=== PATIENT | male | born 1960 | race Caucasian/White ===

== ENCOUNTER → 2017-11-26 14:13 | Outpatient (CLI) | payer OTHER, SELFPAY ==
[2017-11-26 15:08] LABS: International Normalized Ratio 1.6
== END ==
PROVIDERS: Family Provider Family Medicine; PCP Family Medicine; Visit Provider Family Medicine
DX: Z95.2 Presence of prosthetic heart valve (principal)
CPT/HCPCS: 36415; 85610

== ENCOUNTER 2017-12-11 10:31 | Outpatient (RCR) | payer OTHER, SELFPAY ==
[2017-12-11 11:44] LABS: International Normalized Ratio 2.2; Prothrombin Time (Protime)PT. 23.4 SECONDS (11.7-14.9)
== END 2017-12-11 15:00 | disposition home or self-care (01) ==
LOC: LAB 10:31
PROVIDERS: Family Provider Family Medicine; PCP Family Medicine; Visit Provider Family Medicine
DX: Z95.2 Presence of prosthetic heart valve (principal)
CPT/HCPCS: 36415; 85610

== ENCOUNTER 2017-12-25 10:00 | Outpatient (RCR) | payer OTHER, SELFPAY ==
--- NOTE | 2017-11-18 09:30 | HP.PTEVAL_ITS ---
Patient's Visit Information CARMEN KHOURY is a 57 year old M referred to Physical Therapy by En LE with a diagnosis of Multiple pelvic fractures. Date of Evaluation: 11/16/17 Physical Therapist: Solitario Raymundo - Visit Plan Frequency: 2x /Week Duration: 6 Weeks Plan: Start with BLE strengthening progressing to HEP. HS stretching. Gait progression to no AD if able. Progress to functional strengthening as tolerated. May use ice and IFC to managee pain. - Subjective Subjective: Pt. is here today for her initial evaluation s/p multiple pelvic fractures after falling off roof. He fell on 2016 while standing on a ladder on roof of his second story. He ulitmately had an ORIF at both anterior and posterior aspects of pelvis. He went to [facility] inpatient rehab for 1 week to work on [employer] as he was none wt. bearing bilaterally. He went home and was eventually seen by home health. He was given clearance for WBing as tolerated on 11/11/17. He reports trialing walking with cane, did not want to use walker. Pt. reports walking short distances in home, with increased pain, but mostly reports weakness. Pt. has been sleeping in reclining chair for comfort. He reports no pain curently, but will get L hip pain with walking and transfers. 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 He also reports some numbness and tingling in L leg at times, but not consistently. - Pain pelvis Pain Intensity (Out of 10): 0 Pain Intensity Range: 0, 4 L hip Pain Intensity (Out of 10): 0 Pain Intensity Range: 0, 4 - Objective POSTURE: Pt. has general flexed posture in sitting and standing. Pt. requires use of AD (cane) to stabilize in stance with increased R lateral lean. Pt. has normal pelvic positioning and equal iliac crest heights. PALPATION: Pt. has well healed incision at lower abdomen and lateral abdomen. No signs of infection, mild tenderness to palpation. NEUROLOGICAL: Pt. has normal sensation troughout bilateral LEs to light and sharp touch. Pt. has 2+ bilateral achilles and patellar DTR. Pt. is able to rise on heels and toes without LOB, but does require balance aid to stabilize. ROM: Pt. has full ankle knee ROM bilaterally. RLE- hip- flexion 110deg mild increase NW, abd 45deg , ext 10deg. LLE- hip- flexion 114deg, abd 47deg, ext 12deg. Pt. reports no pain, just stiffness with all ROM. Pt. is also tight in bilateral HS, (R- 68deg , L 71deg). MMT- RLE- ankle- 5/5 throughout; knee- ext 4+/5, flexion 4+/5; hip - flexion 4/5, abd 4/5, ext 4/5. LLE- ankle 5/5 throughout; knee- ext 4+/5, flexion 4/5; hip- flexion 4/5, abd 4/5, ext 4/5. Core strength- poor+. GAIT: Pt. ambulates with SPC in R hand, he heavily uses and step to pattern. Pt. was able to ambulate 105ft. without LOB, but reports mild increase in sore and fatigue. Pt. ambulates with FWW with improved step length and control, reduced pain for 289ft. STAIRS: Pt. is able to complete with step to pattern with loading RLE mostly, heavy use of HR, with mild increase NW symptoms. - Balance Scores Functional Gait Assessment Score: 10 % Disability: 66.6700 - Goals Goal 1:: Pt. to be I with HEP. Goal Time Frame: 4-6 Weeks Goal 2:: Pt. to have increased BLE strength by 1/2 grade throughout effected musculature allowing for increased stability with all functional mobility. Goal Time Frame: 4-6 Weeks Goal 3:: Pt. to ambulate with least restrictive device vs no AD unlimited distances without increase in symptoms. Goal Time Frame: 4-6 Weeks Goal 4:: Pt. to negotiate 1 flight of steps with 1 HR with reciprocal pattern without increase in symptoms. Goal Time Frame: 4-6 Weeks Goal 5:: Pt. to have improved FGA to 28/30 reduce risk for future falls. Goal Time Frame: 4-6 Weeks Goal 6:: Pt. to resume all work activities with 0-1/10 pain. - Rehabilitation Potential Physical Therapy Diagnosis: Pt. has signs and symptoms consistent with BLE weakness, difficulty with gait, reduced endurance, general deconditioning and increased pain S/P pelvic ORIF after fall. He would benefit from PT to increase BLE/core strength, increase stability with gait, improve balance, decrease pain and regain endurance allowing for safe return back to work and PLOF. Rehabilitation Potential: Excellent - Anticipated Interventions Patient/Client Instruction: Educate patient on: Condition, Plan of Care, Risk Factors, Benefits of Fitness Program For the Purpose of:: To reduce risk of recurrence, To improve safety, To improve health and function, To foster healthy habits, To improve decision making, To facilitate caregiver knowledge, To improve self management, To prevent re-injury, To improve ability to perform tasks related to life management, To improve tolerance to ADL's Therapeutic Exercise to Include: Strength training, Power training, Endurance training, Balance training, Coordination, Agility training, Postural training, Flexibilty training, Gait and locomotor training, Active ROM, Dynamic Lumbar Stabilization For the Purpose of:: To decrease pain, To increase ROM, To improve nutrient delivery to tissue, To increase oxygenation perfusion, To improve muscle performance and motor function, To improve ability to perform ADL's, To increase tolerance to activity/condition/position, To improve performance and independence with ADL's, To decrease level of supervision to perform tasks, To improve ability of physical actions for home/community/work/leisure, To improve gait and locomotor functions, To improve health of tissue, To decrease soft tissue restriction, To increase flexibility/ROM, To improve endurance, To improve balance IF ES: Yes Cryotherapy (ice pack, ice massage): Yes For the Purpose of:: To decrease pain, To increase ROM, To improve nutrient delivery to tissue, To increase oxygenation perfusion Thank you for the opportunity to evaluate your patient. For Medicare and Medicare HMO plans, please review the plan of care and approve it. It will need to be FAXED BACK to us at [phone] for Medicare purposes. Please let me know if there are questions or concerns regarding this plan of care. Physician Signature: Date:
--- NOTE | 2017-12-25 07:47 | PT ---
DR. Melquiades Marti MD, My name is Solitario Raymundo DPT. I am a physical therapist who has been working with Gabriel Donaldson DB: [id number]. He is doing very well with PT thus far. He is able to tolerate using the eliptical, leg pressing 115lbs, sled pushing/pulling upto 110lbs, and has improved his gait pattern. He reported having no pain at his last visit in both his lumbar spine and his pelvis/hips. He is negotiating steps without issues without use of HRs. He has seen a chiropractor for his back and lack of ankle DF strength which he reports has been improving. I do think at this point in time he would be able to tolerate most of his job related duties. My only consern would be if he has to carry heavier objects up/down ladders, mainly because he has not tried this at this point. Please let me know if you have any questions or concerns, my number is #[phone]. Fax number is #[phone]. Thank you, Solitario Raymundo DPT
--- NOTE | 2018-05-19 19:06 | HP.PT.NRP ---
HP - Discharge Summary (1) - Patient Information CARMEN KHOURY was seen in my office for initial evaluation on 11/16/17. The following Plan of Care was established for this patient: Initial Frequency: 2x /Week Initial Duration: 6 Weeks - Anticipated Interventions Patient/Client Instruction: Educate patient on: Condition, Plan of Care, Risk Factors, Benefits of Fitness Program For the Purpose of:: To reduce risk of recurrence, To improve safety, To improve health and function, To foster healthy habits, To improve decision making, To facilitate caregiver knowledge, To improve self management, To prevent re-injury, To improve ability to perform tasks related to life management, To improve tolerance to ADL's Therapeutic Exercise to Include: Strength training, Power training, Endurance training, Balance training, Coordination, Agility training, Postural training, Flexibilty training, Gait and locomotor training, Active ROM, Dynamic Lumbar Stabilization For the Purpose of:: To decrease pain, To increase ROM, To improve nutrient delivery to tissue, To increase oxygenation perfusion, To improve muscle performance and motor function, To improve ability to perform ADL's, To increase tolerance to activity/condition/position, To improve performance and independence with ADL's, To decrease level of supervision to perform tasks, To improve ability of physical actions for home/community/work/leisure, To improve gait and locomotor functions, To improve health of tissue, To decrease soft tissue restriction, To increase flexibility/ROM, To improve endurance, To improve balance IF ES: Yes Cryotherapy (ice pack, ice massage): Yes For the Purpose of:: To decrease pain, To increase ROM, To improve nutrient delivery to tissue, To increase oxygenation perfusion This patient was last seen in our office 12/25/17. Pertinent comments regarding their Physical therapy will appear below: Pt. was seen in PT for strengthening after sustaining multiple pelvic fractures after a mechanical fall. Pt. progressed very well and was able to progress to independent exercises. Pt. cancelled the rest of his PT as he reported he no longer needed it. Pt. pleased. Pt. has not been seen in ~5 months and will be DC from PT at this point in time. At this point I will be discontinuing this patient from physical therapy. I would be happy to see this patient again in the future if found appropriate by the physician. Thank you! Solitario Raymundo
== END 2017-12-25 19:00 | disposition home or self-care (01) ==
LOC: PT 10:00
PROVIDERS: Family Provider Family Medicine; PCP Family Medicine; Visit Provider Family Medicine
DX: S32.9XXD Fracture of unspecified parts of lumbosacral spine and pelvis, subsequent encounter for fracture with routine healing (principal); M25.552 Pain in left hip
CPT/HCPCS: 97110; 97162

== ENCOUNTER 2018-02-01 16:47 | Outpatient (RCR) | payer OTHER, SELFPAY ==
[2018-02-01 17:55] LABS: International Normalized Ratio 2.5; Prothrombin Time (Protime)PT. 26.9 SECONDS (11.7-14.9)
== END 2018-02-01 17:00 | disposition home or self-care (01) ==
LOC: LAB 16:47
PROVIDERS: Family Provider Family Medicine; PCP Family Medicine; Visit Provider Family Medicine
DX: Z95.2 Presence of prosthetic heart valve (principal)
CPT/HCPCS: 36415; 85610

== ENCOUNTER → 2018-03-03 08:04 | Outpatient (CLI) | payer OTHER, SELFPAY ==
--- NOTE | 2018-03-03 10:53 | NEURO_ITS ---
NCS and/or EMG Patient Report Ordering Doctor: En Bah DATE OF SERVICE: 03/03/18 This is a left lower extremity nerve conduction study and EMG performed on this 57-year-old male with a history of paresthesias in his left great toe which occurred after an injury in August 2017. He fell from a roof suffering a fractured pelvis as well as a lumbar fracture. He has well-controlled diabetes with a hemoglobin A1c of 6.7. Left lower extremity sensory and motor nerve conduction study was performed. The sural sensory responses are normal. The common peroneal motor amplitude is reduced with slowed conduction velocity and prolonged latency. The tibial motor distal latency is also prolonged with reduced conduction velocity. More proximally the common peroneal conduction velocity remains slow with reduced amplitude. Tibial and common peroneal F waves are prolonged. H reflexes are intact although asymmetric with reduced left tibial H reflex on the left. Left lower extremity needle electromyography is performed. Muscles evaluated included the extensor digitorum brevis, abductor hallucis, medial gastrocnemius , anterior tibialis, vastus medialis and vastus lateralis muscles. Insertional activity was normal however distal muscle did demonstrate increased amplitude. The anterior tibialis muscle also demonstrated 2+ fibrillation potentials. Impression this is an abnormal electrophysiologic study of left lower extremity consistent with likely length dependent chronic idiopathic peripheral neuropathy with there is superimposed mild L4 radiculopathy.
== END ==
PROVIDERS: Family Provider Family Medicine; PCP Family Medicine; Visit Provider Family Medicine
DX: M21.372 Foot drop, left foot (principal)
CPT/HCPCS: 95886; 95909

== ENCOUNTER 2018-04-17 11:54 | Outpatient (RCR) | payer OTHER, SELFPAY ==
[2018-04-17 12:25] LABS: International Normalized Ratio 1.7; Prothrombin Time (Protime)PT. 20.1 SECONDS (11.7-14.9)
== END 2018-04-17 12:30 | disposition home or self-care (01) ==
LOC: LAB 11:54
PROVIDERS: Family Provider Family Medicine; PCP Family Medicine; Visit Provider Family Medicine
DX: Z95.2 Presence of prosthetic heart valve (principal)
CPT/HCPCS: 36415; 85610

== ENCOUNTER 2018-05-31 16:15 | Outpatient (RCR) | payer OTHER, SELFPAY ==
[2018-05-31 17:41] LABS: International Normalized Ratio 2.5; Prothrombin Time (Protime)PT. 27.2 SECONDS (11.7-14.9)
== END 2018-05-31 18:00 | disposition home or self-care (01) ==
LOC: LAB 16:15
PROVIDERS: Family Provider Family Medicine; PCP Family Medicine; Visit Provider Family Medicine
DX: Z95.2 Presence of prosthetic heart valve (principal)
CPT/HCPCS: 36415; 85610

== ENCOUNTER 2018-07-07 15:07 | Outpatient (RCR) | payer OTHER, SELFPAY ==
[2018-07-07 17:16] LABS: International Normalized Ratio 1.7; Prothrombin Time (Protime)PT. 20.4 SECONDS (11.7-14.9)
[2018-07-07 17:42] LABS: AST(SGOT) 15 U/L (15-37); Alanine Aminotransfer ALT/SGPT 24 U/L (16-61); Albumin, Serum 3.7 g/dL (3.2-5.0); Alkaline Phosphatase 89 U/L (45-117); Anion Gap 12 (5-15); BUN 26 mg/dL (7-18); CRP 2.94 mg/L (0.0-3.0); Calcium,Total 8.5 mg/dL (8.5-10.1); Chloride 102 mmol/L (98-107); Creatinine, Serum 1.24 mg/dL (0.70-1.30); EST Glomerular Filtration Rate 63 mL/min (>60); Est Glom Filt Rate - Afr Amer 77 mL/min (>60); Globulin 3.6 g/dL (2.2-4.2); Glucose 159 mg/dL (74-106); Protein, Total 7.3 g/dL (6.4-8.2); Rheumatoid Factor < 10.0 IU/mL (<15); Sodium Level 137 mmol/L (136-145)
[2018-07-07 17:45] LABS: Erythrocyte Sedimentation Rate 13 mm/hr (0-20)
[2018-07-07 17:49] LABS: Vitamin B12 437 pg/mL (211-911)
[2018-07-09 16:09] LABS: PROEL- A/G Ratio 1.3 (0.7-1.7); PROEL- Alpha-1 Globulin 0.2 g/dL (0.0-0.4); PROEL- Alpha-2 Globulin 0.6 g/dL (0.4-1.0); PROEL- Beta Globulin 1.3 g/dL (0.7-1.3); PROEL- Gamma Globulin 1.1 g/dL (0.4-1.8); PROEL- Globulin, Total 3.2 g/dL (2.2-3.9); PROEL- TOTAL PROTEIN 7.2 g/dL (6.0-8.5)
[2018-07-12 11:11] LABS: ANTINUCLEAR ANTIBODIES DIRECT Negative (Negative)
[2018-07-12 18:43] LABS: PROELU- Albumin, Urine 56.6 % (.); PROELU- Alpha-1-Globulin,Ur 1.1 % (.); PROELU- Alpha-2-Globulin,Ur 8.1 % (.); PROELU- Beta Globulin, Ur 17.2 % (.); PROELU- Gamma Globulin, Ur 16.9 % (.)
== END 2018-07-07 16:00 | disposition home or self-care (01) ==
LOC: LAB 15:07
PROVIDERS: Family Provider Family Medicine; PCP Family Medicine; Visit Provider Family Medicine
DX: G62.9 Polyneuropathy, unspecified (principal); Z95.2 Presence of prosthetic heart valve
CPT/HCPCS: 36415; 80053; 82607; 84165; 84166; 85610; 85652; 86038; 86140; 86431

== ENCOUNTER 2018-09-06 16:56 | Outpatient (RCR) | payer OTHER, SELFPAY ==
[2018-09-06 17:54] LABS: International Normalized Ratio 1.9; Prothrombin Time (Protime)PT. 21.9 SECONDS (11.7-14.9)
== END 2018-09-17 12:25 | disposition home or self-care (01) ==
LOC: LAB 16:56
PROVIDERS: Family Provider Family Medicine; PCP Family Medicine; Referring Provider Family Medicine; Visit Provider Family Medicine
DX: Z95.2 Presence of prosthetic heart valve (principal)
CPT/HCPCS: 36415; 85610

== ENCOUNTER 2018-09-25 10:51 | Outpatient (RCR) | payer OTHER, SELFPAY ==
[2018-09-25 11:31] LABS: International Normalized Ratio 2.5; Prothrombin Time (Protime)PT. 26.8 SECONDS (11.7-14.9)
== END 2018-09-25 11:00 | disposition home or self-care (01) ==
LOC: LAB 10:51
PROVIDERS: Family Provider Family Medicine; PCP Family Medicine; Referring Provider Family Medicine; Visit Provider Family Medicine
DX: Z95.2 Presence of prosthetic heart valve (principal)
CPT/HCPCS: 36415; 85610

== ENCOUNTER → 2018-09-30 08:29 | Outpatient (CLI) | payer OTHER, SELFPAY ==
--- NOTE | 2018-09-30 08:31 | RAD_ITS ---
STUDY: X-RAY - RIGHT SHOULDER REASON FOR EXAM: Male, 58 years old. Pain of the right shoulder TECHNIQUE: 3 view(s) of the shoulder. COMPARISON: None. FINDINGS: There is mild degenerative arthrosis of the glenohumeral articulation. Normal acromioclavicular joint. Normal acromion. Normal humeral head and visualized proximal humerus. The soft tissue structures are unremarkable. There are old fractures of the right ribs. Normal visualized pulmonary apex. RAD/Shoulder min 2 Views IMPRESSION: Mild glenohumeral joint arthrosis. Old right rib fractures. Electronically Signed: Krish Ann MD at 7:56 EST , Service support ,
--- NOTE | 2018-09-30 08:31 | RAD_ITS ---
STUDY: X-RAY - LEFT SHOULDER REASON FOR EXAM: Male, 58 years old. Left shoulder pain TECHNIQUE: 3 view(s) of the shoulder. COMPARISON: 09/16/2012 FINDINGS: Normal glenohumeral articulation. Normal acromioclavicular joint. Normal acromion. Normal humeral head and visualized proximal humerus. The soft tissue structures are unremarkable. Left cardiac conduction device noted. Normal visualized pulmonary apex. RAD/Shoulder min 2 Views IMPRESSION: Normal x-ray examination of the shoulder. Electronically Signed: Krish Ann MD at 7:57 EST , Service support ,
--- OUTSIDE RECORDS SUMMARY | 2018-11-16 01:42 | XMS RPT_ITS ---
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 REGULARLY It is not important to spend hours in the gym, lifting weights and perspiring heavily. A total of 2-3 hours per week of aerobic (causing you to be moderately short of breath) exercise is sufficient to improve your health. Talk to us before you begin a new exercise program, if you have heart disease or experience shortness of breath or chest pain. REDUCE STRESS Chronic emotional and physical stress leads to disease. Ways of reducing stress include meditation, visualization, prayer, yoga and other forms of relaxation therapy. Consistency is the wiley. Find a technique that works for you and do it every day. CULTIVATE RELATIONSHIPS Loneliness and isolation have a major negative impact on health. Seek out others who can love, care for and nurture you. Avoid hurtful relationships. MAINTAIN IDEAL BODY WEIGHT The best way to do this is to do all the things above. Our bodies naturally find the right weight if we keep moving and feed ourselves the right food. If your BMI is greater than 25, we strongly recommend a referral to a weight management program. Please speak to us or your family physician about available programs. AVOID NICOTINE IN ALL FORMS This includes all tobacco products, whether chewed, smoked, vaped, or rubbed on the skin. Smoking cessation programs, which can make use of tobacco substitutes, medications to suppress cravings and behavior management, are available. Please contact your family physician about programs in your area. Referring Provider: GIOVANA SUERO [[id number]] Allergies As of Date: 10/22/2018 (No Known Allergies) Date Reviewed: 10/22/2018 Reviewed by: Arvind Padron MA - Fully Assessed Reason for Visit: Established Patient [175] Primary Visit Diagnosis:S/P AVR [Z95.2] Other Visit Diagnosis:Sick sinus syndrome (HCC) [I49.5] Order(s):ECG COMPLETE W INTERPRETATION [ECG01] Order #: [id number] FUTURE COMPLETE ECG [] Order #: [id number]. #:[id number]--[id number]: 1 Prescriptions as of 10/22/2018 Sig: LISINOPRIL 5 MG TABLET TAKE ONE TABLET BY MOUTH ONCE* PITAVASTATIN CALCIUM 2 MG TAB* Take 2 mg by mouth once daily. METFORMIN 500 MG TABLET Take 500 mg by mouth twice da* OMEGA-3 FATTY ACIDS-VITAMIN E* Take 2 capsules by mouth. ASPIRIN 81 MG TABLET,DELAYED * Take 81 mg by mouth once venkatesh* WARFARIN 10 MG TABLET Take 10 mg by mouth once venkatesh* MULTIVITAMIN TABLET Take 1 tablet by mouth once d* CITALOPRAM 40 MG TABLET Take 20 mg by mouth once venkatesh* METOPROLOL TARTRATE 25 MG TAB* Take 1 tablet by mouth twice * Patient not taking: Reported on 03/12/2018 PIOGLITAZONE 30 MG TABLET CHLORPHENIRAMINE 4 MG TABLET Take 4 mg by mouth every 6 ho* Problem List As Of Date 10/22/2018 Noted Resolved Complete heart block [I44.2] INVALID FOR* S/P AVR (aortic valve replacement) [Z95.2] INVALID FOR* Cardiac pacemaker in situ [Z95.0] INVALID FOR* Stented coronary artery [Z95.5] INVALID FOR* Other instructions from your clinician: LIFESTYLE CHANGE A healthy lifestyle is the most important component of your overall treatment plan. Please give serious thought to the following areas and commit to making mcfp changes. EAT A WHOLE FOOD, PLANT BASED DIET The nutrition your body gets is more important than the medicine you take. What matters most is the overall way you eat. We encourage you to minimize the use of animal products (which include dairy and all meats except fatty fish) and use whole, unprocessed plant foods to provide your protein, vitamins and other nutrients. We have a lot of information to share with you on this topic. This is not a diet. It is a way of life that you will keep with you. EXERCISE REGULARLY It is not important to spend hours in the gym, lifting weights and perspiring heavily. A total of 2-3 hours per week of aerobic (causing you to be moderately short of breath) exercise is sufficient to improve your health. Talk to us before you begin a new exercise program, if you have heart disease or experience shortness of breath or chest pain. REDUCE STRESS Chronic emotional and physical stress leads to disease. Ways of reducing stress include meditation, visualization, prayer, yoga and other forms of relaxation therapy. Consistency is the wiley. Find a technique that works for you and do it every day. CULTIVATE RELATIONSHIPS Loneliness and isolation have a major negative impact on health. Seek out others who can love, care for and nurture you. Avoid hurtful relationships. MAINTAIN IDEAL BODY WEIGHT The best way to do this is to do all the things above. Our bodies naturally find the right weight if we keep moving and feed ourselves the right food. If your BMI is greater than 25, we strongly recommend a referral to a weight management program. Please speak to us or your family physician about available programs. AVOID NICOTINE IN ALL FORMS This includes all tobacco products, whether chewed, smoked, vaped, or rubbed on the skin. Smoking cessation programs, which can make use of tobacco substitutes, medications to suppress cravings and behavior management, are available. Please contact your family physician about programs in your area. Follow-up and Disposition History Recorded Encounter Status:Closed by GIOVANA SUERO MD on 10/22/18 CHARLEEN Observed: 10/22/2018 Status: COMPLETED Source: [place] 1:30 PM [facility] REPOSITORY Office Visit (CARDWS) GABRIEL KHOURY ([id number]) 1960 M Date Time Provider Department 10/22/18 1:30 PM ECHOCARDIOGRAM [facility] CARDWS During your visit today, we recorded the following information about you: Coral Gallagher RN 10/22/2018 2:02 PM Signed #22g hep lock started rt ac x1 attempt, no redness swelling or bleeding noted at insertion site. Flushed with 5ml normal saline without difficulty. opsite dressing applied. Pt tolerated procedure without distress. Total of 7 ml definity given and flushed with 5 ml normal saline upon completion, lot # [id number]. Pt tolerated medication without distress. Hep lock removed, catheter intact, no redness, swelling or pain at site. 2x2 gauze dressing applied with paper tape. Pt tolerated procedure without distress. Coral Gallagher RN Referring Provider: GIOVANA SUERO [[id number]] Allergies As of Date: 10/22/2018 (No Known Allergies) Date Reviewed: 10/22/2018 Reviewed by: Arvind Padron MA - Fully Assessed Visit Diagnoses:S/P AVR [Z95.2] Essential hypertension [I10] Order(s):ECHO [677502] Order #: [id number]: 1 INSERT IV ([place]) [8501357] Order #: [id number]: 1 IV DISCONTINUE [5499772] Order #: [id number]: 1 perflutren lipid microspheres (DEFINITY) 1.1 mg/mL injection (to be provided with echo procedure)Inject 1.3 mL intravenously one time only for 1 dose.Disp: 1.3 mLRfl: 0 Prescriptions as of 10/22/2018 Sig: PERFLUTREN LIPID MICROSPHERES* Inject 1.3 mL intravenously o* LISINOPRIL 5 MG TABLET TAKE ONE TABLET BY MOUTH ONCE* PITAVASTATIN CALCIUM 2 MG TAB* Take 2 mg by mouth once daily. METOPROLOL TARTRATE 25 MG TAB* Take 1 tablet by mouth twice * Patient not taking: Reported on 03/12/2018 METFORMIN 500 MG TABLET Take 500 mg by mouth twice da* PIOGLITAZONE 30 MG TABLET CHLORPHENIRAMINE 4 MG TABLET Take 4 mg by mouth every 6 ho* OMEGA-3 FATTY ACIDS-VITAMIN E* Take 2 capsules by mouth. ASPIRIN 81 MG TABLET,DELAYED * Take 81 mg by mouth once venkatesh* WARFARIN 10 MG TABLET Take 10 mg by mouth once venkatesh* MULTIVITAMIN TABLET Take 1 tablet by mouth once d* CITALOPRAM 40 MG TABLET Take 20 mg by mouth once venkatesh* Problem List As Of Date 10/22/2018 Noted Resolved Complete heart block [I44.2] INVALID FOR* S/P AVR (aortic valve replacement) [Z95.2] INVALID FOR* Cardiac pacemaker in situ [Z95.0] INVALID FOR* Stented coronary artery [Z95.5] INVALID FOR* Visit Notes: >> Coral Gallagher RN ThuOct 22, 2018 2:02 PM Status: Signed #22g hep lock started rt ac x1 attempt, no redness swelling or bleeding noted at insertion site. Flushed with 5ml normal saline without difficulty. opsite dressing applied. Pt tolerated procedure without distress. Total of 7 ml definity given and flushed with 5 ml normal saline upon completion, lot # [id number]. Pt tolerated medication without distress. Hep lock removed, catheter intact, no redness, swelling or pain at site. 2x2 gauze dressing applied with paper tape. Pt tolerated procedure without distress. Coral Gallagher RN Prescriptions ordered this encounter Disp Refills Start End PERFLUTREN LIPID MICROSPHERES 1.1 MG* 1.3 * 0 10/22/2018 10/22/2018 Class: In Office Route: INTRAVENOUS Sig: Inject 1.3 mL intravenously one time only for 1 dose. Follow-up and Disposition History Recorded Encounter Status:Closed by CORAL GALLAGHER RN on 10/22/18 ORTHOPEDIC VISIT Observed: 10/04/2018 Status: F Source: [place] RE[place] 3:41 PM [facility] [place] [facility] [address] [place] [address] OFFICE VISIT Date of Service: 09/30/18 MR#: [id number] Acct: [id number] Name: GABRIEL KHOURY Rep #: [id number] : 1960 Provider: GREGORY De Leon Age/Sex: 58/M Location: [facility] [place].[facility] Status: Signed Intake Intake Visit Reasons: BILAT SHOULDERS Is patient in pain?: Yes Allergies No Known Allergies Allergy (Verified 09/30/18 08:25) Medications Aspirin [Aspirin, Baby] 81 mg PO DAILY@0800 07/20/14 [History Confirmed 07/20/14] Citalopram [Celexa] 40 mg PO DAILY 07/20/14 [History Confirmed 07/20/14] Lisinopril [Zestril] 5 mg PO DAILY 07/20/14 [History Confirmed 07/20/14] [place]-3S/Dha/Epa/Fish Oil [Fish Oil Dr 1,000 mg Softgel] 1.5 ea PO DAILY 07/20/14 [History Confirmed 07/20/14] Pravastatin [Pravachol] 80 mg PO DAILY 07/20/14 [History Confirmed 07/20/14] Warfarin Sodium [Coumadin] 10 mg PO DAILY 07/20/14 [History Confirmed 07/20/14] PFSH Social History Smoking Status: Never smoker HPI BILAT SHOULDERS: Details: GABRIEL KHOURY is a 58 year old M here today for bilateral shoulder pain. Patient notes that he has shoulder pain over his anterior shoulder. Patient notes that he has a known rotator cuff in his left shoulder. He states that he fell off a roof a year ago and injured his right shoulder. Patient has not had any evaluation on his shoulder since his fall. Patient states that he has limited range of motion of his left shoulder but has good range of motion on his right. He notes he did PT for his left shoulder. Patient notes that he had an US of his left shoulder. He denies any recent injections into his shoulder. ROS Const Reports system reviewed and no additional complaints, except as docu Eyes Reports system reviewed and no additional complaints, except as docu ENT Reports system reviewed and no additional complaints, except as docu Card Reports system reviewed and no additional complaints, except as docu Resp Reports system reviewed and no additional complaints, except as docu GI Reports system reviewed and no additional complaints, except as docu Reports system reviewed and no additional complaints, except as docu Musc Reports joint pain, Reports muscle weakness, Reports limited joint movement Skin/Breast Reports system reviewed and no additional complaints, except as docu Neuro Yes system reviewed and no additional complaints, except as docu Psych Reports system reviewed and no additional complaints, except as docu Endo Reports system reviewed and no additional complaints, except as docu Ortho Exam Right Shoulder Skin/Wound: No ecchymosis Testing: Positive Hawkin's, Neer's, AROM-Forward Elevation 0-180 and AROM-External Rotation at side 0-60; negative TTP Biceps, empty can or translation Internal Rotation: L1 Left Shoulder Skin/Wound: No ecchymosis Testing: No AROM-Forward Elevation 0-180 (170), Yes AROM-External Rotation at side 0-60, Yes PROM-Forward Elevation 0-180, No empty can Internal Rotation: Tip of Scapula SHOULDER: No evident abnormalities on inspection. No generalized or localized swelling. He does have some decreased active forward elevation as well as some decrease in abduction (abduction to about 80-90 degrees). Office Procedures Kenalog 40 mg/mL suspension for injection (triamcinolone acetonide) 80 mg Intra-Articular ONCE Injections Yes Subacromial Injection Right Office Meds Awa Performing Provider: GREGORY Haddad Administered by: GREGORY Haddad on 09/30/18 09:25 Dose Route Admin Location Lot Number Expiration DateND Attendant Sales 80 mg Intra-Articularright shoulder [id number] 09/18/19 3795-7365-60 [place] Assessment AND Plan Problems 1. Impingement syndrome of right shoulder M75.41 2. Tear of left rotator cuff, unspecified tear extent M75.102 Plan Obtained Xrays of patient's bilateral shoulders. Personally reviewed Xrays. There is no obvious fracture, dislocation, or lucency noted. See chart for further details. At this time patient has evidence of right shoulder impingement with possible tendinitis/bursitis. His range of motion and strength in the right side is very good at the same time does have some tenderness during these motions. His left shoulder has evident decreased range of motion which is very likely secondary to a rotator cuff tear which he states has been told he has had previously. At this time the right shoulder has become more painful and irritating than the left side. We discussed treatment options at this time which include doing nothing, continuing conservative home care with ice and anti-inflammatories, and injection, physical therapy and or further evaluation with more diagnostic imaging. Patient states that he has had relief from injection of the left shoulder and would like to proceed with an injection into the right shoulder. Patient is a diabetic and has some other health problems which we discussed. He states that his sugars did not really change much after his last injection into the left shoulder. This is something that he still needs to continue to monitor and watch. Also needs to notify of any symptoms such as shortness of breath chest pains pressures or any other symptoms. Risks and benefits of the injection were further discussed. All of patient's questions were answered and consent was signed. Injection was given under normal sterile fashion using a anterior approach into the subacromial space. Patient had no complications and tolerated procedure very well. Can you monitor for any redness, increased pain, inflammation, or other signs of infection. Notify the office of such symptoms. I would like patient to undergo some physical therapy or at least do some home exercise therapy which I did go ahead and give him a protocol for. Ice and anti-inflammatories as needed/allowed. Follow-up in 6-8 weeks Orders Orders: Medications Discontinued: Kenalog (triamcinolone acetonide) Disco80 mg (2 mL) Intra- Articular ONCE 2 mL 0RFM75.41 ntinued Reason: Office Medication has bee NS n Documented as given Plan Detail Follow Up 8 Weeks Coding Level of Care Code Off vis,est,level 3 Diagnoses Impingement syndrome of right shoulder M75.41 Tear of left rotator cuff, unspecified tear extent M75.102 Rotator cuff tear extent: unspecified tear extent Additional Codes stage set designer.sub ([id number]) 10/04/18 1541 <Electronically signed by Paul JENKINS> Date Paul JENKINS Cosigner Signature: Date (if applicable) CC: SHOULDER MIN 2 VIEWS Observed: 09/30/2018 Status: F Source: [place] 8:31 AM [facility] [place] [facility] Imaging Services [address] [place] [id number] Shoulder min 2 Views MR#: [id number] Acct: [id number] Name: GABRIEL KHORUY Rep #: [id number] : 1960 M 58 From: Krish Ann MD PCP: Cal Bah MD Status: REG CLI Study: Shoulder min 2 Views Date of Exam: 09/30/18 Exam# [id number] Ordering Dr: Paul De Leon STUDY: X-RAY - RIGHT SHOULDER REASON FOR EXAM: Male, 58 years old. Pain of the right shoulder TECHNIQUE: 3 view(s) of the shoulder. COMPARISON: None. FINDINGS: There is mild degenerative arthrosis of the glenohumeral articulation. Normal acromioclavicular joint. Normal acromion. Normal humeral head and visualized proximal humerus. The soft tissue structures are unremarkable. There are old fractures of the right ribs. Normal visualized pulmonary apex. RAD/Shoulder min 2 Views IMPRESSION: Mild glenohumeral joint arthrosis. Old right rib fractures. Electronically Signed: Krish Ann MD at 7:56 EST , Service support , CC: GREGORY De Leon; Cal Bah MD [place] Packer: Signed SHOULDER MIN 2 VIEWS Observed: 09/30/2018 Status: F Source: [place] 8:31 AM [facility] [place] [facility] Imaging Services [address] [place] [id number] Shoulder min 2 Views MR#: [id number] Acct: [id number] Name: GABRIEL KHOURY Rep #: [id number] : 1960 58 From: Krish Ann MD PCP: Cal Bah MD Status: REG CLI Study: Shoulder min 2 Views Date of Exam: 09/30/18 Exam# [id number] Ordering Dr: Paul De Leon STUDY: X-RAY - LEFT SHOULDER REASON FOR EXAM: Male, 58 years old. Left shoulder pain TECHNIQUE: 3 view(s) of the shoulder. COMPARISON: 09/16/2012 FINDINGS: Normal glenohumeral articulation. Normal acromioclavicular joint. Normal acromion. Normal humeral head and visualized proximal humerus. The soft tissue structures are unremarkable. Left cardiac conduction device noted. Normal visualized pulmonary apex. RAD/Shoulder min 2 Views IMPRESSION: Normal x-ray examination of the shoulder. Electronically Signed: Krish Ann MD at 7:57 EST , Service support , CC: GREGORY De Leon; Cal Bah MD [place] Packer: Signed PROTHROMBIN TIME W/INR Collected: 09/25/2018 Status: F Source: [place] 10:58 AM [facility] [place] TYPE CODE TESTS RESULT OUT OF RANGE REFERENCE UNITS LAB L300.4150 11.7-14.9 SECONDS High PROTIME 26.8 LAB L300.4200 Normal INR 2.5 Performed By: #### L300.3900 #### [facility] [address] [place], [place], [address] PROTHROMBIN TIME W/INR Collected: 09/06/2018 Status: F Source: [place] 5:00 PM [facility] [place] TYPE CODE TESTS RESULT OUT OF RANGE REFERENCE UNITS LAB L300.4150 11.7-14.9 SECONDS High PROTIME 21.9 LAB L300.4200 Normal INR 1.9 Performed By: #### L300.3900 #### [facility] [address] [place], [address] PACEMAKER CHECK Observed: 09/02/2018 Status: F Source: [place] 3:53 PM [facility] [place] [facility] [place] [address] Pacemaker Check Date of Service: 09/01/181730 MR#: [id number] Acct: [id number] Name: GABRIEL KHOURY Rep #: [id number] : 1960 From: Nola Lloyd Age/Sex: 58/M Location: [facility] [place] Status: Signed Billing Codes PM Device Codes: PM Dev Interrogate (Remot 09/01/181731 <Electronically signed by Nola Lloyd > Date Nola Lloyd 09/02/18 1553<Electronically signed by Carlos Pacheco MD> Ernie Signature: Date (if applicable) Carlos Pacheco MD CC: XR PELVIS 1 VIEW Observed: 08/18/2018 Status: F Source: [facility] ([facility] 8:29 AM [place] REPOSITORY Order Comment: Reason for exam?:f/u Injury/Trauma or Illness?:Injury/Trauma How long have you had these symptoms (acute/chronic)?:Chronic History of cancer?:unk Surgeries, chemotherapy, or radiation?:pelvis orif Type of Exam?:Subsequent/Follow-up Mechanism of injury?:accident I have personally reviewed an AP pelvis which was obtained at my request in the office today. This film demonstrates a remote pelvis ring injury. There are sacroiliac screws placed bilaterally and a symphyseal plate. The alignment of the pelvis is anatomic, the hardware is intact, and there is no change in the position of the hardware or the pelvis or time. Dictated by: CAROLA ROGERS on ThuAug 19, 2018 3:58:50 PM EDT Transcribed by: CAROLA ROGERS on ThuAug 19, 2018 3:58:50 PM EDT Finalized by: CAROLA ROGERS on ThuAug 19, 2018 3:58:50 PM EDT PROTEIN ELECTROPH, S Collected: 07/07/2018 Status: F Source: [place] 3:21 PM [facility] [place] TYPE CODE TESTS RESULT OUT OF RANGE REFERENCE UNITS LAB L3100.3500 6.0-8.5 g/dL Normal PROTEIN,TOTAL 7.2 LAB L3100.3600 2.9-4.4 g/dL Normal ALBUMIN 4.0 LAB L3100.3700 0.0-0.4 g/dL Normal ALPHA-1 GLOBUL 0.2 LAB L3100.3800 0.4-1.0 g/dL Normal ALPHA-2 GLOBUL 0.6 LAB L3100.3900 0.7-1.3 g/dL Normal BETA GLOBULIN 1.3 LAB L3100.4000 0.4-1.8 g/dL Normal GAMMA GLOBULIN 1.1 LAB L3100.4110 Normal M-SPIKE Result Comment: Not Observed LAB L3100.4200 2.2-3.9 g/dL GLOBULIN, TOTAL Normal 3.2 LAB L3100.4300 0.7-1.7 A/G RATIO Normal 1.3 LAB L3100.4320 . INTERPRETATION Normal Comment Result Comment: Protein electrophoresis scan will follow via computer, mail, or patient financial counselor delivery. LAB L3100.4340 . Normal NOTE: Comment Result Comment: The SPE pattern appears essentially unremarkable. Evidence of monoclonal protein is not apparent. Performed at: [facility] [address] [id number] Multimedia Project Manager: Ezra Urbina PhD, Phone: [phone] Performed By: #### L3100.3450 #### [facility] (refer to report for specific site) refer to report for address and phone number PROTEIN ELECTRO.UR-RANDOM Collected: Status: F Source: [place] 07/07/2018 3:21 PM [facility] [place] TYPE CODE TESTS RESULT OUT OF RANGE REFERENCE UNITS LAB L3600.4100 Not Estab. mg/dL Normal 8.0 PROTEIN,UR LAB L3600.4200 . % Normal 56.6 ALBUMIN,UR LAB L3600.4300 . % Normal 1.1 SYXLW-4-MYRS ,U LAB L3600.4400 . % Normal 8.1 WKWZO-5-BSXC ,U LAB L3600.4500 . % Normal BETA 17.2 GLOB,U LAB L3600.4600 . % Normal GAMMA 16.9 GLOB,U LAB L3600.4720 Normal M-SPIKE,U Result Comment: Not Observed LAB L3600.4800 . Normal NOTE Comment Result Comment: Protein electrophoresis scan will follow via computer, mail, or patient financial counselor delivery. Performed at: [facility] [address] [id number] Multimedia Project Manager: Ezra Urbina PhD, Phone: [phone] Performed By: #### L3600.4000 #### [facility] (refer to report for specific site) refer to report for address and phone number COMPREHENSIVE METABOLIC Collected: 07/07/2018 Status: F Source: [place] 3:11 PM [facility] [place] TYPE CODE TESTS RESULT OUT OF RANGE REFERENCE UNITS LAB L501.0100 74-106 mg/dL High GLU 159 Result Comment: Fasting Glucose result greater than or equal to 126 mg/dL suggests DIABETES MELLITUS per A.D.A. criteria. Please note revised GLUCOSE reference range effective 2017. LAB L501.1000 7-18 mg/dL High BUN 26 LAB L501.1100 0.70-1.30 mg/dL Normal CREAT,SERUM 1.24 Result Comment: The validity of the calculated GFR AND GFRAA in patients over 70 years has not been determined. Clinical correlation is essential. LAB L501.1110 >60 mL/min Normal EST GFR 63 Result Comment: Non- GFR Calc LAB L501.1115 >60 mL/min Normal EST GFR - AA 77 Result Comment: GFR Calc LAB L501.1300 10-20 RATIO High BUN/CRE 21.0 LAB L501.1500 6.4-8.2 g/dL T Normal PROT 7.3 LAB L501.1800 3.2-5.0 g/dL Normal ALB 3.7 LAB L501.1950 2.2-4.2 g/dL Normal GLOB 3.6 LAB L501.2000 0.9-2.4 RATIO Normal A/G 1.0 LAB L501.2200 8.5-10.1 mg/dL CA Normal 8.5 LAB L501.4100 15-37 U/L Normal AST 15 LAB L501.4305 45-117 U/L Normal ALK P 89 LAB L501.4405 16-61 U/L Normal ALT 24 LAB L501.4600 0.20-1.00 mg/dL T Normal BILI 0.50 LAB L501.5300 136-145 mmol/L NA Normal 137 LAB L501.5600 3.5-5.1 mmol/L K Normal 4.0 LAB L501.5900 98-107 mmol/L CL Normal 102 LAB L501.6100 21.0-32.0 mmol/L Normal CO2 23.0 LAB L501.6200 5-15 Normal GAP 12 Performed By: #### L500.4050, L501.6710, L505.7010 #### [facility] [address] [place], [place], [id number] CRP Collected: 07/07/2018 Status: F Source: [place] 3:11 PM [facility] [place] TYPE CODE TESTS RESULT OUT OF RANGE REFERENCE UNITS LAB L501.6710 0.0-3.0 mg/L Normal 2.94 C-REACTIVE PROT Result Comment: C-Reactive Protein (CRP) provides useful information for the diagnosis, therapy and monitoring of inflammatory processes and associated diseases. For the evaluation of Relative Risk for Cardiovascular Disease, a High Sensitivity CRP (HSCRP) should be ordered. Performed By: #### L500.4050, L501.6710, L505.7010 #### [facility] [address] [place], [place], [address] RHEUMATOID FACTOR Collected: 07/07/2018 Status: F Source: [place] 3:11 PM [facility] [place] TYPE CODE TESTS RESULT OUT OF RANGE REFERENCE UNITS LAB L505.7010 <15 IU/mL Normal RHEUMATOID FAC < 10.0 Performed By: #### L500.4050, L501.6710, L505.7010 #### [facility] [address] [place], [place], [address] PROTHROMBIN TIME W/INR Collected: 07/07/2018 Status: F Source: [place] 3:11 PM [facility] [place] TYPE CODE TESTS RESULT OUT OF RANGE REFERENCE UNITS LAB L300.4150 11.7-14.9 SECONDS High PROTIME 20.4 LAB L300.4200 Normal INR 1.7 Performed By: #### L300.3900 #### [facility] [address] [place], [address] ERYTHROCYTE SED RATE Collected: 07/07/2018 Status: F Source: [place] 3:11 PM [facility] [place] TYPE CODE TESTS RESULT OUT OF RANGE REFERENCE UNITS LAB L102.0000 0-20 mm/hr Normal SED RATE 13 Performed By: #### L101.9900 #### [facility] [address] [place], [place], [id number] VITAMIN B12 Collected: 07/07/2018 Status: F Source: [place] 3:11 PM [facility] [place] TYPE CODE TESTS RESULT OUT OF RANGE REFERENCE UNITS LAB L503.0105 211-911 pg/mL Normal Vitamin B12 437 Performed By: #### L503.0105 #### [facility] [address] [place], [address] ANTINUCLEAR ANTIBODIES Collected: 07/07/2018 Status: F Source: [place] 3:11 PM [facility] [place] TYPE CODE TESTS RESULT OUT OF RANGE REFERENCE UNITS LAB L3100.5475 Negative Normal Negative LANIE-DIRECT Result Comment: Performed at: - [facility] [id number] Multimedia Project Manager: Ezra Urbina PhD, Phone: [phone] Performed By: #### L3100.5475 #### [facility] (refer to report for specific site) refer to report for address and phone number PACEMAKER CHECK Observed: 06/02/2018 Status: F Source: [place] 11:51 AM [facility] [place] [facility] [place] [address] Pacemaker Check Date of Service: 05/31/181651 MR#: [id number] Acct: [id number] Name: GABRIEL KHOURY Rep #: [id number] : 1960 From: Nola Lloyd Age/Sex: 58/M Location: [facility] [place] Status: Signed Billing Codes PM Device Codes: PM Dev Prog Eval, Dual 05/31/18 1654 <Electronically signed by Nola Lloyd > Date Nola Lloyd 06/02/18 1151<Electronically signed by Carlos Pacheco MD> Ernie Signature: Date (if applicable) Carlos Pacheco MD CC: PROTHROMBIN TIME W/INR Collected: 05/31/2018 Status: F Source: [place] 4:19 PM [facility] [place] TYPE CODE TESTS RESULT OUT OF RANGE REFERENCE UNITS LAB L300.4150 11.7-14.9 SECONDS High PROTIME 27.2 LAB L300.4200 Normal INR 2.5 Performed By: #### L300.3900 #### [facility] [address] [place], [address] PROTHROMBIN TIME W/INR Collected: 04/17/2018 Status: F Source: [place] 11:56 AM [facility] [place] TYPE CODE TESTS RESULT OUT OF RANGE REFERENCE UNITS LAB L300.4150 11.7-14.9 SECONDS High PROTIME 20.1 LAB L300.4200 Normal INR 1.7 Performed By: #### L300.3900 #### [facility] [address] [place], [address] PROGRESS Observed: 03/12/2018 Status: COMPLETED Source: [place] 8:48 AM [facility] REPOSITORY HNO ID: [id number] Author: Giovana Suero Service: (none) Author Type: Physician Type: Progress Notes Filed: 03/12/2018 9:21 AM Note Text: PERTINENT CARDIAC HISTORY BAV - s/p mechanical AVR 2000 ASHD - PCI OM1 GRACIE 2014 Dilated aortic root - graft 2000, recurrent dilatation, 4.[address] HL - statin intolerant HTN SSS - s/p PPM Atrial fib DM ADHERENCE TO GUIDELINES TARUN-I or ARB for HF with prior LVEF<40 (NQF 0081) - met ASA or Plavix for ASHD (NQF 0067) - met Beta berta for ASHD with prior OK or prior LVEF<40 (NQF 0070) - N/A Beta berta for HF with prior LVEF<40 (NQF 0083) - met TARUN-I or ARB for ASHD with DM or prior LVEF<40 (NQF 0066) - met Statin therapy for ASHD or FHL or DM - met BMI documented and plan if >25 (NQF 0421) - lifestyle recommendation form Tobacco use screening and referral (NQF 0028) - lifestyle recommendation form Recommendation for whole food, plant based diet - lifestyle recommendation form CLINICAL IMPRESSION/PLAN: Gabriel Khoury has stable valvular heart disease. His valve has normal characteristics by exam. Echocardiogram will be done in 8 months for follow-up of valve gradients, LV function and aortic root size. He's been having some myalgias. He would like to go back to pravastatin. I have no objection. He will be coordinating this through Dr. Bah's office, where he has his labs drawn. I have confirmed that INRs are being followed by Dr. Bah. He will be referred to [facility] for clinic device check. I will see him in 8 months at which time he will have an echocardiogram. If there is increased chest pain or shortness of breath, he has been advised to contact me. He's been advised to begin checking blood pressures at home and contact me for possible medication adjustment. Written and verbal health teaching given to patient, patient verbalizes understanding and agrees with treatment plan. DIAGNOSIS FOR VISIT: AVR Hypertension HISTORY OF PRESENT ILLNESS Gabriel Khoury returns for follow-up of multiple cardiac issues, as noted above. He reports stable exercise tolerance. He fell off a roof over gi and fractured his pelvis. He is back to nearly full activity. He denies chest pain. He's had no orthopnea, edema, syncope, palpitations, TIAs, amaurosis and claudication. He has not been monitoring blood pressures at home ALLERGIES: ALLERGIES No Known Allergies CURRENT OUTPATIENT MEDICATIONS: lisinopril (ZESTRIL, PRINIVIL) 5 mg tablet TAKE ONE TABLET BY MOUTH ONCE DAILY Pitavastatin (LIVALO) 2 mg tab Take 2 mg by mouth once daily. metFORMIN (GLUCOPHAGE) 500 mg tablet Take 500 mg by mouth twice daily with meals. [place]-3 Fatty Acids-Vitamin E (FISH OIL) 1,000 mg cap Take 2 capsules by mouth. aspirin, enteric coated (ADULT LOW DOSE ASPIRIN) 81 mg EC tablet Take 81 mg by mouth once daily. warfarin 10 mg tablet Take 10 mg by mouth once daily. multivitamin tablet Take 1 tablet by mouth once daily. citalopram 40 mg tablet Take 20 mg by mouth once daily. metoprolol tartrate, short acting, (LOPRESSOR) 25 mg tablet Take 1 tablet by mouth twice daily. pioglitazone (ACTOS) 30 mg tablet chlorpheniramine (ALLER-CHLOR) 4 mg tablet Take 4 mg by mouth every 6 hours as needed. PHYSICAL EXAMINATION: VITAL SIGNS: BP 138/78 Pulse 73 Resp 18 Ht 5' 11 (1.80m) Wt 240 lb 11.2 oz (109.2kg) BMI 33.59 kg/(m2). Chest: Clear to percussion and auscultation. Trachea is midline. Air entry is equal. Cardiac: Regular rhythm. Mechanical valve sounds are normal. PMI is nondisplaced. There is a soft systolic ejection murmur. There is no aortic insufficiency murmur. Carotids are brisk without bruits. JVP is less than 10 cm. Abdomen: Soft and nontender. There are no pulsatile masses or bruits. No liver enlargement. Bowel sounds are active. Extremities: No edema. Pulses are intact and symmetrical. EKG shows AV pacing. There is no significant change. Recent remote pacemaker check showed episodes of atrial tachycardia lasting up to 3 hours. These have been asymptomatic. He is due a clinic check but has not been able to schedule this through [place]. Electronically Signed: Giovana Suero MD March 12, 2018 8:49 AM CC: Cal Bah MD CNOV Observed: 03/12/2018 Status: COMPLETED Source: [place] 8:30 AM [facility] REPOSITORY Office Visit (CAWSTR) GABRIEL KHOURY ([id number]) 1960 M Date Time Provider Department 03/12/18 8:30 AM GIOVANA SUEROWSTR During your visit today, we recorded the following information about you: Pulse Respiration Blood pressure Weight 73/minute 18/minute 138/78 109.2 kg Height 1.803 m Giovana Suero MD 03/12/2018 9:21 AM Signed PERTINENT CARDIAC HISTORY BAV - s/p mechanical AVR 2000 ASHD - PCI OM1 GRACIE 2014 Dilated aortic root - graft 2000, recurrent dilatation, 4.[address] HL - statin intolerant HTN SSS - s/p PPM Atrial fib DM ADHERENCE TO GUIDELINES TARUN-I or ARB for HF with prior LVEF<40 (NQF 0081) - met ASA or Plavix for ASHD (NQF 0067) - met Beta berta for ASHD with prior OK or prior LVEF<40 (NQF 0070) - N/A Beta berta for HF with prior LVEF<40 (NQF 0083) - met TARUN-I or ARB for ASHD with DM or prior LVEF<40 (NQF 0066) - met Statin therapy for ASHD or FHL or DM - met BMI documented and plan if >25 (NQ 0421) - lifestyle recommendation form Tobacco use screening and referral (NQ 0028) - lifestyle recommendation form Recommendation for whole food, plant based diet - lifestyle recommendation form CLINICAL IMPRESSION/PLAN: Gabriel Khoury has stable valvular heart disease. His valve has normal characteristics by exam. Echocardiogram will be done in 8 months for follow-up of valve gradients, LV function and aortic root size. He's been having some myalgias. He would like to go back to pravastatin. I have no objection. He will be coordinating this through Dr. Bah's office, where he has his labs drawn. I have confirmed that INRs are being followed by Dr. Bah. He will be referred to [facility] for clinic device check. I will see him in 8 months at which time he will have an echocardiogram. If there is increased chest pain or shortness of breath, he has been advised to contact me. He's been advised to begin checking blood pressures at home and contact me for possible medication adjustment. Written and verbal health teaching given to patient, patient verbalizes understanding and agrees with treatment plan. DIAGNOSIS FOR VISIT: AVR Hypertension HISTORY OF PRESENT ILLNESS Gabriel Khoury returns for follow-up of multiple cardiac issues, as noted above. He reports stable exercise tolerance. He fell off a roof over and fractured his pelvis. He is back to nearly full activity. He denies chest pain. He's had no orthopnea, edema, syncope, palpitations, TIAs, amaurosis and claudication. He has not been monitoring blood pressures at home ALLERGIES: ALLERGIES No Known Allergies CURRENT OUTPATIENT MEDICATIONS: lisinopril (ZESTRIL, PRINIVIL) 5 mg tablet TAKE ONE TABLET BY MOUTH ONCE DAILY Pitavastatin (LIVALO) 2 mg tab Take 2 mg by mouth once daily. metFORMIN (GLUCOPHAGE) 500 mg tablet Take 500 mg by mouth twice daily with meals. [place]-3 Fatty Acids-Vitamin E (FISH OIL) 1,000 mg cap Take 2 capsules by mouth. aspirin, enteric coated (ADULT LOW DOSE ASPIRIN) 81 mg EC tablet Take 81 mg by mouth once daily. warfarin 10 mg tablet Take 10 mg by mouth once daily. multivitamin tablet Take 1 tablet by mouth once daily. citalopram 40 mg tablet Take 20 mg by mouth once daily. metoprolol tartrate, short acting, (LOPRESSOR) 25 mg tablet Take 1 tablet by mouth twice daily. pioglitazone (ACTOS) 30 mg tablet chlorpheniramine (ALLER-CHLOR) 4 mg tablet Take 4 mg by mouth every 6 hours as needed. PHYSICAL EXAMINATION: VITAL SIGNS: BP 138/78 Pulse 73 Resp 18 Ht 5' 11 (1.80m) Wt 240 lb 11.2 oz (109.2kg) BMI 33.59 kg/(m2). Chest: Clear to percussion and auscultation. Trachea is midline. Air entry is equal. Cardiac: Regular rhythm. Mechanical valve sounds are normal. PMI is nondisplaced. There is a soft systolic ejection murmur. There is no aortic insufficiency murmur. Carotids are brisk without bruits. JVP is less than 10 cm. Abdomen: Soft and nontender. There are no pulsatile masses or bruits. No liver enlargement. Bowel sounds are active. Extremities: No edema. Pulses are intact and symmetrical. EKG shows AV pacing. There is no significant change. Recent remote pacemaker check showed episodes of atrial tachycardia lasting up to 3 hours. These have been asymptomatic. He is due a clinic check but has not been able to schedule this through [place]. Electronically Signed: Giovana Suero MD March 12, 2018 8:49 AM CC: MD Giovana Mooney MD 03/12/2018 8:49 AM Signed LIFESTYLE CHANGE A healthy lifestyle is the most important component of your overall treatment plan. Please give serious thought to the following areas and commit to making extermination inspector changes. EAT A WHOLE FOOD, PLANT BASED DIET The nutrition your body gets is more important than the medicine you take. What matters most is the overall way you eat. We encourage you to minimize the use of animal products (which include dairy and all meats except fatty fish) and use whole, unprocessed plant foods to provide your protein, vitamins and other nutrients. We have a lot of information to share with you on this topic. This is not a diet. It is a way of life that you will keep with you. EXERCISE REGULARLY It is not important to spend hours in the gym, lifting weights and perspiring heavily. A total of 2-3 hours per week of aerobic (causing you to be moderately short of breath) exercise is sufficient to improve your health. Talk to us before you begin a new exercise program, if you have heart disease or experience shortness of breath or chest pain. REDUCE STRESS Chronic emotional and physical stress leads to disease. Ways of reducing stress include meditation, visualization, prayer, yoga and other forms of relaxation therapy. Consistency is the wiley. Find a technique that works for you and do it every day. CULTIVATE RELATIONSHIPS Loneliness and isolation have a major negative impact on health. Seek out others who can love, care for and nurture you. Avoid hurtful relationships. MAINTAIN IDEAL BODY WEIGHT The best way to do this is to do all the things above. Our bodies naturally find the right weight if we keep moving and feed ourselves the right food. If your BMI is greater than 25, we strongly recommend a referral to a weight management program. Please speak to us or your family physician about available programs. AVOID NICOTINE IN ALL FORMS This includes all tobacco products, whether chewed, smoked, vaped, or rubbed on the skin. Smoking cessation programs, which can make use of tobacco substitutes, medications to suppress cravings and behavior management, are available. Please contact your family physician about programs in your area. Referring Provider: GIOVANA SUERO [[id number]] Allergies As of Date: 03/12/2018 (No Known Allergies) Date Reviewed: 03/12/2018 Reviewed by: Coral Gallagher RN - Fully Assessed Reason for Visit: Recheck [92] Primary Visit Diagnosis:S/P AVR [Z95.2] Other Visit Diagnosis:Essential hypertension [I10] Order(s):ECHO [173136] Order #: [id number]: 1 FUTURE CONSULT TO DEVICE CLINIC (AG) [0261697] Order #: [id number]: 1 ECG COMPLETE W INTERPRETATION [ECG01] Order #: [id number] FUTURE Prescriptions as of 03/12/2018 Sig: LISINOPRIL 5 MG TABLET TAKE ONE TABLET BY MOUTH ONCE* PITAVASTATIN CALCIUM 2 MG TAB* Take 2 mg by mouth once daily. METFORMIN 500 MG TABLET Take 500 mg by mouth twice da* [place]-3 FATTY ACIDS-VITAMIN E* Take 2 capsules by mouth. ASPIRIN 81 MG TABLET,DELAYED * Take 81 mg by mouth once venkatesh* WARFARIN 10 MG TABLET Take 10 mg by mouth once venkatesh* MULTIVITAMIN TABLET Take 1 tablet by mouth once d* CITALOPRAM 40 MG TABLET Take 20 mg by mouth once venkatesh* METOPROLOL TARTRATE 25 MG TAB* Take 1 tablet by mouth twice * Patient not taking: Reported on 03/12/2018 PIOGLITAZONE 30 MG TABLET CHLORPHENIRAMINE 4 MG TABLET Take 4 mg by mouth every 6 ho* Problem List As Of Date 03/12/2018 Noted Resolved Complete heart block [I44.2] INVALID FOR* S/P AVR (aortic valve replacement) [Z95.2] INVALID FOR* Cardiac pacemaker in situ [Z95.0] INVALID FOR* Stented coronary artery [Z95.5] INVALID FOR* Other instructions from your clinician: LIFESTYLE CHANGE A healthy lifestyle is the most important component of your overall treatment plan. Please give serious thought to the following areas and commit to making mcfp changes. EAT A WHOLE FOOD, PLANT BASED DIET The nutrition your body gets is more important than the medicine you take. What matters most is the overall way you eat. We encourage you to minimize the use of animal products (which include dairy and all meats except fatty fish) and use whole, unprocessed plant foods to provide your protein, vitamins and other nutrients. We have a lot of information to share with you on this topic. This is not a diet. It is a way of life that you will keep with you. EXERCISE REGULARLY It is not important to spend hours in the gym, lifting weights and perspiring heavily. A total of 2-3 hours per week of aerobic (causing you to be moderately short of breath) exercise is sufficient to improve your health. Talk to us before you begin a new exercise program, if you have heart disease or experience shortness of breath or chest pain. REDUCE STRESS Chronic emotional and physical stress leads to disease. Ways of reducing stress include meditation, visualization, prayer, yoga and other forms of relaxation therapy. Consistency is the wiley. Find a technique that works for you and do it every day. CULTIVATE RELATIONSHIPS Loneliness and isolation have a major negative impact on health. Seek out others who can love, care for and nurture you. Avoid hurtful relationships. MAINTAIN IDEAL BODY WEIGHT The best way to do this is to do all the things above. Our bodies naturally find the right weight if we keep moving and feed ourselves the right food. If your BMI is greater than 25, we strongly recommend a referral to a weight management program. Please speak to us or your family physician about available programs. AVOID NICOTINE IN ALL FORMS This includes all tobacco products, whether chewed, smoked, vaped, or rubbed on the skin. Smoking cessation programs, which can make use of tobacco substitutes, medications to suppress cravings and behavior management, are available. Please contact your family physician about programs in your area. Encounter Status:Closed by GIOVANA SUERO MD on 03/12/18 NCS AND/OR EMG Observed: 03/03/2018 Status: F Source: [place] PATIENT 11:02 AM [facility] [place] [facility] Pulmonary Services/Neurology [address] [place] [address] MR#: [id number] Acct: [id number] Name: GABRIEL KHOURY Rep #: [id number] : 1960 57 From: Emanuel Dave MD Referring Dr: Cal Bah MD Status: REG CLI Ordering Dr: Date: Location: [facility] Sex: M C NCS and/or EMG Patient Report Ordering Doctor: Cal Bah DATE OF SERVICE: 03/03/18 This is a left lower extremity nerve conduction study and EMG performed on this 57-year-old male with a history of paresthesias in his left great toe which occurred after an injury in August 2017. He fell from a roof suffering a fractured pelvis as well as a lumbar fracture. He has well-controlled diabetes with a hemoglobin A1c of 6.7. Left lower extremity sensory and motor nerve conduction study was performed. The sural sensory responses are normal. The common peroneal motor amplitude is reduced with slowed conduction velocity and prolonged latency. The tibial motor distal latency is also prolonged with reduced conduction velocity. More proximally the common peroneal conduction velocity remains slow with reduced amplitude. Tibial and common peroneal F waves are prolonged. H reflexes are intact although asymmetric with reduced left tibial H reflex on the left. Left lower extremity needle electromyography is performed. Muscles evaluated included the extensor digitorum brevis, abductor hallucis, medial gastrocnemius, anterior tibialis, vastus medialis and vastus lateralis muscles. Insertional activity was normal however distal muscle did demonstrate increased amplitude. The anterior tibialis muscle also demonstrated 2+ fibrillation potentials. Impression this is an abnormal electrophysiologic study of left lower extremity consistent with likely length dependent chronic idiopathic peripheral neuropathy with there is superimposed mild L4 radiculopathy. 03/03/18 1102 <Electronically signed by Emanuel Dave MD> Date Emanuel Dave MD CC: Cal Bah MD; Emanuel Dave MD Date Dictated: 03/03/181048 Date Transcribed: 03/03/181048 [place] Packer: NF Signed PROTHROMBIN TIME W/INR Collected: 02/01/2018 Status: F Source: [place] 4:53 PM [facility] [place] TYPE CODE TESTS RESULT OUT OF RANGE REFERENCE UNITS LAB L300.4150 11.7-14.9 SECONDS High PROTIME 26.9 LAB L300.4200 Normal INR 2.5 Performed By: #### L300.3900 #### [facility] [address] [place], [address] XR PELVIS 1 VIEW Observed: 12/23/2017 Status: F Source: [facility] ([place] 9:10 AM THREE REPOSITORY Order Comment: Reason for exam?:fu Injury/Trauma or Illness?:Injury/Trauma How long have you had these symptoms (acute/chronic)?:Acute History of cancer?:unk Surgeries, chemotherapy, or radiation?:pelvis orif Type of Exam?:Subsequent/Follow-up Mechanism of injury?:trauma I have personally reviewed an AP pelvis film which was obtained at my request in the office today. This film demonstrates a anatomically aligned pelvic ring injury. There is a plate across the pubic symphysis, and sacroiliac screws bilaterally. There are no traumatic changes, and the hardware is intact. Dictated by: CAROLA ROGERS on ThuDec 23, 2017 11:58:11 AM EST Transcribed by: CAROLA ROGERS on ThuDec 23, 2017 11:58:11 AM EST Finalized by: CAROLA ROGERS on ThuDec 23, 2017 11:58:11 AM EST PROTHROMBIN TIME W/INR Collected: 12/11/2017 Status: F Source: [place] 10:35 AM [facility] [place] Order Comment: Order Date: 12/01/17 Order Info: [id number] - PT Comments: Standing OrderStanding Order TYPE CODE TESTS RESULT OUT OF RANGE REFERENCE UNITS LAB L300.4150 11.7-14.9 SECONDS High PROTIME 23.4 LAB L300.4200 Normal INR 2.2 Performed By: #### L300.3900 #### [facility] [address] [place], [address] PROTHROMBIN TIME W/INR Collected: 11/26/2017 Status: F Source: [place] 2:39 PM [facility] [place] TYPE CODE TESTS RESULT OUT OF RANGE REFERENCE UNITS LAB L300.4150 11.7-14.9 SECONDS High PROTIME 18.0 LAB L300.4200 Normal INR 1.6 Performed By: #### L300.3900 #### [facility] [address] [place], [address] INITAL EVALUATION (1) Observed: 11/18/2017 Status: F Source: [place] - [place] 9:30 AM [facility] [facility] [place] REPOSITORY [facility] Physical Therapy [facility] [address] [place] [address]. [address] [place], [place] [address] Fax REHABILITATION SERVICES INITIAL EVALUATION MR#: [id number] Acct: [id number] Name: GABRIEL KHOURY Rep #: [id number] : 1960 57 From: Solitario Raymundo DPT Referring Dr.: Cal Bah MD Status: REG R Insurance: [email or web address] SELF PAY INSURANCE Patient's Visit Information GABRIEL KHOURY is a 57 year old M referred to Physical Therapy by Cal LE with a diagnosis of Multiple pelvic fractures. Date of Evaluation: 11/16/17 Physical Therapist: Solitario Raymundo - Visit Plan Frequency: 2x /Week Duration: 6 Weeks Plan: Start with BLE strengthening progressing to HEP. HS stretching. Gait progression to no AD if able. Progress to functional strengthening as tolerated. May use ice and IFC to managee pain. - Subjective Subjective: Pt. is here today for her initial evaluation s/p multiple pelvic fractures after falling off roof. He fell on 2016 while standing on a ladder on roof of his second story. He ulitmately had an ORIF at both anterior and posterior aspects of pelvis. He went to [facility] inpatient rehab for 1 week to work on [employer] as he was none wt. bearing bilaterally. He went home and was eventually seen by home health. He was given clearance for WBing as tolerated on 11/11/17. He reports trialing walking with cane, did not want to use walker. Pt. reports walking short distances in home, with increased pain, but mostly reports weakness. Pt. has been sleeping in reclining chair for comfort. He reports no pain curently, but will get L hip pain with walking and transfers. 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 He also reports some numbness and tingling in L leg at times, but not consistently. - Pain pelvis Pain Intensity (Out of 10): 0 Pain Intensity Range: 0, 4 L hip Pain Intensity (Out of 10): 0 Pain Intensity Range: 0, 4 - Objective POSTURE: Pt. has general flexed posture in sitting and standing. Pt. requires use of AD (cane) to stabilize in stance with increased R lateral lean. Pt. has normal pelvic positioning and equal iliac crest heights. PALPATION: Pt. has well healed incision at lower abdomen and lateral abdomen. No signs of infection, mild tenderness to palpation. NEUROLOGICAL: Pt. has normal sensation troughout bilateral LEs to light and sharp touch. Pt. has 2+ bilateral achilles and patellar DTR. Pt. is able to rise on heels and toes without LOB, but does require balance aid to stabilize. ROM: Pt. has full ankle knee ROM bilaterally. RLE- hip- flexion 110deg mild increase NW, abd 45deg, ext 10deg. LLE- hip- flexion 114deg, abd 47deg, ext 12deg. Pt. reports no pain, just stiffness with all ROM. Pt. is also tight in bilateral HS, (R- 68deg, L 71deg). MMT- RLE- ankle- 5/5 throughout; knee- ext 4+/5, flexion 4+/5; hip- flexion 4/5, abd 4/5, ext 4/5. LLE- ankle 5/5 throughout; knee- ext 4+/5, flexion 4/5; hip- flexion 4/5, abd 4/5, ext 4/5. Core strength- poor+. GAIT: Pt. ambulates with SPC in R hand, he heavily uses and step to pattern. Pt. was able to ambulate 105ft. without LOB, but reports mild increase in sore and fatigue. Pt. ambulates with FWW with improved step length and control, reduced pain for 289ft. STAIRS: Pt. is able to complete with step to pattern with loading RLE mostly, heavy use of HR, with mild increase NW symptoms. - Balance Scores Functional Gait Assessment Score: 10 % Disability: 66.6700 - Goals Goal 1:: Pt. to be I with HEP. Goal Time Frame: 4-6 Weeks Goal 2:: Pt. to have increased BLE strength by 1/2 grade throughout effected musculature allowing for increased stability with all functional mobility. Goal Time Frame: 4-6 Weeks Goal 3:: Pt. to ambulate with least restrictive device vs no AD unlimited distances without increase in symptoms. Goal Time Frame: 4-6 Weeks Goal 4:: Pt. to negotiate 1 flight of steps with 1 HR with reciprocal pattern without increase in symptoms. Goal Time Frame: 4-6 Weeks Goal 5:: Pt. to have improved FGA to 28/30 reduce risk for future falls. Goal Time Frame: 4-6 Weeks Goal 6:: Pt. to resume all work activities with 0-1/10 pain. - Rehabilitation Potential Physical Therapy Diagnosis: Pt. has signs and symptoms consistent with BLE weakness, difficulty with gait, reduced endurance, general deconditioning and increased pain S/P pelvic ORIF after fall. He would benefit from PT to increase BLE/core strength, increase stability with gait, improve balance, decrease pain and regain endurance allowing for safe return back to work and PLOF. Rehabilitation Potential: Excellent - Anticipated Interventions Patient/Client Instruction: Educate patient on: Condition, Plan of Care, Risk Factors, Benefits of Fitness Program For the Purpose of:: To reduce risk of recurrence, To improve safety, To improve health and function, To foster healthy habits, To improve decision making, To facilitate caregiver knowledge, To improve self management, To prevent re-injury, To improve ability to perform tasks related to life management, To improve tolerance to ADL's Therapeutic Exercise to Include: Strength training, Power training, Endurance training, Balance training, Coordination, Agility training, Postural training, Flexibilty training, Gait and locomotor training, Active ROM, Dynamic Lumbar Stabilization For the Purpose of:: To decrease pain, To increase ROM, To improve nutrient delivery to tissue, To increase oxygenation perfusion, To improve muscle performance and motor function, To improve ability to perform ADL's, To increase tolerance to activity/condition/position, To improve performance and independence with ADL's, To decrease level of supervision to perform tasks, To improve ability of physical actions for home/community/work/leisure, To improve gait and locomotor functions, To improve health of tissue, To decrease soft tissue restriction, To increase flexibility/ROM, To improve endurance, To improve balance IF ES: Yes Cryotherapy (ice pack, ice massage): Yes For the Purpose of:: To decrease pain, To increase ROM, To improve nutrient delivery to tissue, To increase oxygenation perfusion Thank you for the opportunity to evaluate your patient. For Medicare and Medicare HMO plans, please review the plan of care and approve it. It will need to be FAXED BACK to us at [phone] for Medicare purposes. Please let me know if there are questions or concerns regarding this plan of care. Physician Signature: Date: <Electronically signed by Solitario Raymundo DPT> 11/18/17 0930 CC: Cal Bah MD CLS Signed For Medicare only, by signing this I certify the plan of care. Physicians Signature Date CBC W/DIFF, AUTOMATED Collected: 11/12/2017 Status: F Source: FREDDIE 9:57 AM [facility] REPOSITORY TYPE CODE TESTS RESULT OUT OF RANGE REFERENCE UNITS LAB L100.1000 4.4-11.0 K/mm3 Normal WBC 6.2 LAB L100.1200 4.6-6.2 M/mm3 Normal RBC 4.63 LAB L100.1300 13.0-16.5 g/dl Normal HGB 13.5 LAB L100.1400 40-54 % Normal HCT 41.0 LAB L100.1500 80-94 fL Normal MCV 88.6 LAB L100.1600 27.0-32.0 pg Normal MCH 29.2 LAB L100.1700 32-36 g/gl Normal MCHC 32.9 LAB L100.1810 11.6-14.6 % Normal RDW CV 14.2 LAB L100.1820 35.1-43.9 fl High RDW SD 45.8 LAB L100.1900 150-450 K/mm3 Normal PLT 281 LAB L100.2000 6.2-12.0 fl Normal MPV 9.1 LAB L100.2100 47-70 % Normal NEUT% 69.2 LAB L100.2200 19-41 % Normal LY% 21.4 LAB L100.2300 0-10 % Normal MONO% 8.1 LAB L100.2400 0-5 % Normal EO% 0.8 LAB L100.2500 0-1 % Normal BASO% 0.2 LAB L100.2550 0.0-0.9 % Normal IM GRAN % 0.300 Result Comment: IG% - Immature Granulocytes (promyelocytes, myelocytes and metamyelocytes) > 1% indicates that a LEFT SHIFT is Present. LAB L100.2620 2.0-7.7 X10 3/uL Normal Absolute Neut 4.3 LAB L100.2720 0.83-4.51 X10 3/ul Normal Absolute Lymph 1.33 Performed By: #### L100.0100 #### [facility] [address] [place], [place], [address] HEMOGLOBIN A1C Collected: 11/12/2017 Status: F Source: [place] 9:57 AM [facility] [place] TYPE CODE TESTS RESULT OUT OF RANGE REFERENCE UNITS LAB L501.9985 4.2-6.3 % High HGB A1C 6.7 Performed By: #### L501.9985 #### [facility] [address] [place], [address] PROTHROMBIN TIME W/INR Collected: 11/12/2017 Status: F Source: [place]ED[place]IE 9:57 AM [facility] [place] TYPE CODE TESTS RESULT OUT OF RANGE REFERENCE UNITS LAB L300.4150 11.7-14.9 SECONDS High PROTIME 30.1 LAB L300.4200 Normal INR 3.0 Performed By: #### L300.3900 #### [facility] [address] [place], [address] MICROALB:CREAT Collected: 11/12/2017 Status: F Source: FREDDIE RATIO,RANDOM UR 9:57 AM [facility] [place] TYPE CODE TESTS RESULT OUT OF RANGE REFERENCE UNITS LAB L501.1200 NO RANGE EST. mg/dL Normal UR CREAT 93.40 LAB L502.0500 NO RANGE EST. mg/L Normal 16.3 MICROALBUMIN ,UR LAB L502.0600 <30 mg/g CRE mg/g CRE Normal 17.5 MALB:CREAT Performed By: #### L502.0250 #### [facility] [address] [place], [address] COMPREHENSIVE METABOLIC Collected: 11/12/2017 Status: F Source: FREDDIE PROFIL 9:57 AM [facility] [place] TYPE CODE TESTS RESULT OUT OF RANGE REFERENCE UNITS LAB L501.0100 70-110 mg/dL High GLU 137 Result Comment: Fasting Glucose result greater than or equal to 126 mg/dL suggests DIABETES MELLITUS per A.D.A. criteria. LAB L501.1000 7-18 mg/dL High BUN 22 LAB L501.1100 0.70-1.30 mg/dL Normal CREAT,SERUM 1.01 Result Comment: The validity of the calculated GFR AND GFRAA in patients over 70 years has not been determined. Clinical correlation is essential. LAB L501.1110 >60 mL/min Normal EST GFR 81 Result Comment: Non- GFR Calc LAB L501.1115 >60 mL/min Normal EST GFR - AA 97 Result Comment: GFR Calc LAB L501.1300 10-20 RATIO High BUN/CRE 21.8 LAB L501.1500 6.4-8.2 g/dL T Normal PROT 7.9 LAB L501.1800 3.4-5.0 g/dL Normal ALB 3.8 Result Comment: Please note revised Albumin AND Globulin reference range effective 2017. LAB L501.1950 2.2-4.2 g/dL Normal GLOB 4.1 LAB L501.2000 0.9-2.4 RATIO Normal A/G 0.9 LAB L501.2200 8.5-10.1 mg/dL Normal CA 8.8 LAB L501.4100 15-37 U/L Normal AST 25 LAB L501.4305 45-117 U/L High ALK P 138 LAB L501.4405 12-78 U/L Normal ALT 56 LAB L501.4600 0.20-1.00 mg/dL Normal T BILI 0.30 LAB L501.5300 136-145 mmol/L Low NA 134 LAB L501.5600 3.5-5.1 mmol/L Normal K 4.3 LAB L501.5900 98-107 mmol/L Normal CL 101 LAB L501.6100 21.0-32.0 mmol/L Normal CO2 24.0 LAB L501.6200 5-15 Normal GAP 9 Performed By: #### L500.4050 #### [facility] [address] [place], [address] XR PELVIS INLET/OUTLET Observed: 11/11/2017 Status: F Source: [facility] 3+ VIEWS 9:01 AM THREE REPOSITORY Order Comment: Reason for exam?:fu Injury/Trauma or Illness?:Injury/Trauma How long have you had these symptoms (acute/chronic)?:Acute History of cancer?:unk Surgeries, chemotherapy, or radiation?:pelvis orif Type of Exam?:Subsequent/Follow-up Mechanism of injury?:trauma I have personally reviewed an AP pelvis as well as inlet and outlet views of the pelvis which were obtained at my request in the office today. This film demonstrates a pelvic ring injury with a symphyseal plate and bilateral sacroiliac screws. The overall alignment of the pelvis appears to be anatomic and unchanged from films taken on September 28, 2017. Dictated by: CAROLA ROGERS on ThuNov 11, 2017 9:11:03 AM EST Transcribed by: CAROLA ROGERS on ThuNov 11, 2017 9:11:03 AM EST Finalized by: CAROLA ROGERS on ThuNov 11, 2017 9:11:03 AM EST ALLERGIES ALLERGIES DATE TYPE / CODE NAME / CODE REACTION SEVERITY SOURCE 09/30/2018 Drug No Known Unknown [facility] Allergy/416 Allergies/T14834 Hospital 446284(SNOM 0388(RXNORM) Repository ED CT) Drug NO KNOWN [facility] Class/35350 ALLERGIES [place] 1003(SNOMED Repository CT) Drug NO KNOWN [facility] Class/18040 ALLERGIES Repository 1003(SNOMED CT) ENCOUNTERS ENCOUNTERS ADMIT/DISCHARGE ACCOUNT NUMBER ADMITTING ENCOUNTER LOCATION SOURCE CLASS 10/22/2018/10/22/19 [id number] Ambulatory [address] Repository 10/22/2018 [id number] Ambulatory General acute hospital ding:LAB Repository 10/22/2018/10/25/19 [id number] Ambulatory [address] Repository 10/22/2018/10/22/19 [id number] Ambulatory [address] Repository 10/19/2018 [id number] Ambulatory General acute hospital ding:LAB Repository 09/30/2018 [id number] Ambulatory General acute hospital ding:HPRAD Repository 09/30/2018/09/30/20 [id number] Ambulatory BMSBuilding: Freddie 18 [facility] Repository 09/25/2018/09/25/20 [id number] Ambulatory [address] ding:LAB Repository 09/06/2018/09/17/20 [id number] Ambulatory [address] ding:LAB Repository 09/01/2018/09/01/20 [id number] Ambulatory BMSBuilding: [place] 18 [facility] Repository 08/18/2018/08/18/20 [id number] Ambulatory Building:[place] [address] [address] Repository 08/18/2018/08/18/20 [id number] Ambulatory Building:[place] [address] [address] Repository 07/07/2018/07/07/20 [id number] Ambulatory [address] ding:LAB Repository 05/31/2018/05/31/20 [id number] Ambulatory Freddie [place] 18 [facility] ding:LAB Repository 05/31/2018/05/31/20 [id number] Ambulatory BMSBuilding: Freddie 18 [facility] Hospital Repository 04/17/2018/04/17/20 [id number] Ambulatory [place] Freddie 18 [facility] ding:LAB Repository 03/12/2018/03/12/20 [id number] Ambulatory [address] Repository 03/03/2018 [id number] [facility] Rep[facility] 02/03/2018/02/04/20 [id number] Ambulatory Building:[place] [address] [address] Three Repository 02/01/2018/02/02/20 [id number] Ambulatory Freddie [place] 18 [facility] ding:LAB Repository 12/25/2017/12/26/19 [id number] Ambulatory [place] Freddie[address] ding:PT Repository 12/23/2017/12/24/19 [id number] [facility] [address] Repository 12/23/2017/12/24/19 [id number] Ambulatory Building:[place] [address] [address] Repository 12/11/2017/12/11/19 [id number] Ambulatory [place] [address] ding:LAB Repository 11/26/2017 [id number] [facility] 11/12/2017 [id number] [facility] 11/11/2017/11/11/19 [id number] Ambulatory Building:[place] [address] [address] Repository 11/11/2017/11/11/19 [id number] Ambulatory Building:[place] [address] [address] Three Repository PAYERS PAYERS ENCOUNTER GUARANTOR PAYER SUBSCRIBER SOURCE 10/22/2018 GABRIEL Jones Primary GABRIEL Jones Freddie [id number] CR Insurance:[facility] UTTERBACKDOB: [facility] [address] [place] [address] icy Number: [id number], [id number] [place]ository [place] [address]Jko: Date:9553-07-19DF [address] [place] [address] () [phone]: 10/22/2018 Secondary NOT GIVENUNK Freddie Insurance:SELF PAY [facility]: Effective Repository Date:2018-10-22 10/19/2018 GABRIEL A Primary GABRIEL A Freddie [id number] CR Insurance:[employer] UTTERBACKDOB: Community [address] icy Number: [id number], [id number] Repository [place] [address]Suc: Date:3182-15-99FR [address] [place] [address] () [phone]: 10/19/2018 Secondary NOT GIVENUNK Freddie Insurance:SELF PAY [facility] Number: Effective Repository Date:2018-10-18 09/30/2018 GABRIEL A Primary GABRIEL A Freddie [id number] CR Insurance:[employer] UTTERBACKDOB: Community [address] icy Number: [id number], [id number] Repository [place] [address]Vgr: Date:6723-34-96HF [address] [place] [address] () [phone]: 09/30/2018 Secondary NOT GIVENUNK Freddie Insurance:SELF PAY [facility] Number: Effective Repository Date:2018-09-30 09/30/2018 GABRIEL A Primary GABRIEL A Freddie [id number] CR Insurance:[employer] UTTERBACKDOB: Community [address] icy Number: [id number], [id number] [place]ository [place] [address]Hhb: Date:7297-90-50DA [address] [place] [address] () [phone]: 09/30/2018 Secondary NOT GIVENUNK Freddie Insurance:SELF PAY [facility] Number: Effective Repository Date:2018-09-29 09/25/2018 GABRIEL A Primary GABRIEL A [place] [id number] CR Insurance:[employer] UTTERBACKDOB: Community [address] icy Number: [id number], [id number] [place]ository [place] [address]Erz: Date:1979-64-32GZ [address] [place] [address] () [address]JW: 09/25/2018 Secondary NOT GIVENUNK [place] Insurance:SELF PAY [facility] Number: Effective Repository Date:2018-09-20 09/06/2018 GABRIEL A Primary GABRIEL A Freddie [id number] CR Insurance:[employer] UTTERBACKDOB: [place] [address] icy Number: [id number], [id number] [place]ository [place] [address]Ktp: Date:3042-51-12HZ [address] [place] [address] () [phone]: 09/06/2018 Secondary NOT GIVENUNK Freddie Insurance:SELF PAY [facility] Number: Effective Repository Date:2018-07-21 09/01/2018 GABRIEL A Primary GABRIEL A Freddie [id number] CR Insurance:[employer] UTTERBACKDOB: [place] [address] icy Number: [id number] [id number] [place]ository [place] [address]Hps: Date:6028-36-41YU [address] [place] [address] () [phone]: 09/01/2018 Secondary NOT GIVENUNK Freddie Insurance:SELF PAY [facility] Number: Effective Repository Date:2018-09-01 08/18/2018 GABRIEL Jones Primary GABRIEL Jones [facility] UTTERBACKDOB: Insurance:COMMERCIALP UTTERBACKDOB: Three Repository [id number] ic Number: [id number] [facility] [id number] Date:4323-93-19PX [address] [place] [address] [place] [address]Dtr: [address]RN: ([phone]) [place] [address]Hcr: [phone] () (HP) 08/18/2018 GABRIEL Jones Primary GABRIEL A [facility] UTTERBACKDOB: Insurance:COMMERCIALP UTTERBACKDOB: Three Repository [id number] olicy Number: [id number] [facility] [id number] [address] [place] [address] BOX Date:2335-37-11VB BOX [facility] [address] [place] [address], [place] [address]Fvy: [phone]: 800) [place] [address]Wfm: [phone] (HP) (HP) 07/07/2018 GABRIEL A Primary GABRIEL A Freddie [id number] CR Insurance:[employer] UTTERBACKDOB: [address] icy Number: [id number] [id number] [place]ository [place] [address]Zst: Date:2256-30-71RA [address] [place] [address] () [phone]: 07/07/2018 Secondary NOT GIVENUNK [place] Insurance:SELF PAY [facility] Number: Effective Repository Date:2018-06-22 05/31/2018 GABRIEL A Primary GABRIEL A Freddie [id number] Insurance:[employer] UTTERBACKDOB: [facility] icy Number: [id number] [id number] Repository [address] [place] [address], Date:0204-45-83FC [address]OX [place] [address]Usg: [address] [place] [address] ) [phone]: [phone] () [phone] 05/31/2018 Secondary NOT GIVENUNK [place] Insurance:SELF PAY [facility] Number: Effective Repository Date:2018-05-31 05/31/2018 GABRIEL A Primary GABRIEL A [place] [id number] Insurance:[employer] UTTERBACKDOB: [facility] icy Number: [id number] [id number] Repository [address] [place] [address], Date:3087-90-62IT BOX al [address]Bmo: [address] [place] [address] ) [phone]: [phone] () [phone] 05/31/2018 Secondary NOT GIVENUNK Freddie Insurance:SELF PAY [facility] Number: Effective Repository Date:2018-05-28 04/17/2018 GABRIEL A Primary GABRIEL A Freddie [id number] CR Insurance:[employer] UTTERBACKDOB: [address] icy Number: [id number], [id number] Repository [place] [address]Iks: Date:2222-90-25OR [address] [place] [address] () [phone]: 04/17/2018 Secondary NOT GIVENUNK Freddie Insurance:SELF PAY [facility] Number: Effective Repository Date:2018-02-16 03/03/2018 GABRIEL A Primary GABRIEL A Freddie [id number] CR Insurance:[employer] UTTERBACKDOB: [address] icy Number: [id number], [id number] [place]ository [place] [address]Jjt: Date:1530-35-28TS [address] [phone] [place] [address] -6 () [phone]: 03/03/2018 Secondary NOT GIVENUNK Freddie Insurance:SELF PAY [facility] Number: Effective Repository Date:2017-12-17 02/03/2018 GABRIEL A Primary GABRIEL Jones [facility] UTTERBACKDOB: Insurance:COMMERCIALP UTTERBACKDOB: Three Repository [id number] olicy Number: [id number] [facility] [id number] [address] [place] [address], Date:4564-67-06IX [address] [place] [address]Byu: [address] [address]Uhj: [phone]: [phone] (HP) [phone] (HP) 02/03/2018 Secondary GABRIEL Jones [facility] Insurance:HCAP/CHARIT UTTERBACKDOB: Three Repository YPolicy Number: [id number] Effective [address] Date:2017-09-[address] [place] [address], 2018-03-10 [place] [address]Dux: (HP) 02/01/2018 GABRIEL Primary GABRIEL [place] [id number] CR Insurance:[employer] UTTERBACKDOB: [address] Number: [id number] [facility] [address]Cyb: [id number] Repository [phone] Date:2364-99-01LN [address] (HP) [address], [place] [address]WJ: 02/01/2018 Secondary NOT GIVENUNK Freddie Insurance:SELF PAY [facility] Number: Effective Repository Date:2017-12-18 12/25/2017 GABRIEL Primary GABRIEL [place] [id number] CR Insurance:[employer] UTTERBACKDOB: [address] Number: [id number] [facility] [address]Mpt: [id number] Repository [phone] Date:1908-12-39UN [address] (HP) [address], [place] [address]QF: 12/25/2017 Secondary NOT GIVENUNK [place] Insurance:SELF PAY [facility] Number: Effective Repository Date:2017-10-22 12/23/2017 GABRIEL A [facility] GABRIEL Jones [facility] UTTERBACKDOB: Insurance:COMMERCIALP UTTERBACKDOB: Three Repository [id number] olicy Number: [id number] [id number] [place] [address], Date:1053-23-52DG [address] [address]Uhf: 6910[facility] [address]Ztg: [phone]: [phone] (HP) [phone] (HP) 12/23/2017 Secondary NOT GIVENUNK [facility] Insurance:HCAP/CHARIT Three Repository YPolicy Number: Effective Date:2017-09-102018-03-10 12/23/2017 GABRIEL Jones Primary GABRIEL Jones [facility] UTTERBACKDOB: Insurance:COMMERCIALP UTTERBACKDOB: Three Repository [id number] olicy Number: [id number] [facility] [id number] [address], Date:6728-93-04XK [address] [place] [address]Uph: [address] [place] [address]Sln: [phone]: [phone] () [phone] () 12/11/2017 GABRIEL Primary GABRIEL [place] [id number] CR Insurance:[employer] UTTERBACKDOB: [address] Number: [id number] Juan Regional [facility] [id number]: [id number] Repository [phone] Date:[id number] [address] () [address] [place] [phone]: 12/11/2017 Secondary NOT GIVENUNK Freddie Insurance:SELF PAY [facility] Number: Effective Repository Date:2017-12-11 11/26/2017 GABRIEL Primary GABRIEL Worley [id number] CR Insurance:AULTCAREPol UTTERBACKDOB: [address] Number: [id number] [address]Tzf: [id number] Repository [phone] Date:0417-82-84AD [address] () [address], [place] [phone]: 11/26/2017 Secondary NOT GIVENUNK [place]ley Insurance:SELF PAY [facility] Number: Effective Repository Date:2017-11-26 11/12/2017 GABRIEL Primary GABRIEL Frazier [id number] CR Insurance:AULTCAREPol UTTERBACKDOB: Community [facility] BOX icy Number: [id number], [id number] Repository [place] [address]Kyh: Date:5380-82-36LF [phone] [place] -[place] ([place]) [phone]: 11/12/2017 Secondary NOT GIVENUNK Freddie Insurance:SELF PAY [facility] Number: Effective Repository Date:2017-11-12 11/11/2017 GABRIEL A Primary GABRIEL Jones [facility] UTTERBACKDOB: Insurance:COMMERCIALP UTTERBACKDOB: Three Repository olicy Number: [id number] [facility] [id number] [address], Date:3181-79-32PI [address] [place] [address]Tbe: [address] [address]Vze: [phone]: [phone] (HP) [phone] (HP) 11/11/2017 Secondary NOT GIVENUNK [facility] Insurance:HCAP/CHARIT Three Repository YPolicy Number: Effective Date:2017-09-102018-03-10 11/11/2017 GABRIEL Jones Primary GABRIEL Jones [facility] UTTERBACKDOB: Insurance:COMMERCIALP UTTERBACKDOB: Three Repository olicy Number: [id number] [facility] [id number] [address], Date:1220-63-45CQ [address] [place] [address]Wal: [address] [address]Zts: [phone]: [phone] (HP) [phone] (HP)
== END ==
PROVIDERS: Family Provider Family Medicine; PCP Family Medicine; Referring Provider Physician Assistant; Visit Provider Physician Assistant
DX: M25.511 Pain in right shoulder (principal); M25.512 Pain in left shoulder
CPT/HCPCS: 73030

== ENCOUNTER → 2018-10-22 15:32 | Outpatient (CLI) | payer OTHER, SELFPAY ==
[2018-10-22 16:44] LABS: Vitamin B12 574 pg/mL (211-911)
[2018-10-22 16:47] LABS: AST(SGOT) 18 U/L (15-37); Alanine Aminotransfer ALT/SGPT 30 U/L (16-61); Albumin, Serum 3.8 g/dL (3.2-5.0); Alkaline Phosphatase 88 U/L (45-117); Anion Gap 9 (5-15); BUN 22 mg/dL (7-18); BUN/Creat Ratio 19.3 RATIO (10-20); Chloride 100 mmol/L (98-107); Cholesterol 309 mg/dL (200); Creatinine, Serum 1.14 mg/dL (0.70-1.30); EST Glomerular Filtration Rate 70 mL/min (>60); Est Glom Filt Rate - Afr Amer 84 mL/min (>60); Ferritin 116 ng/mL (26-388); Globulin 3.9 g/dL (2.2-4.2); Glucose 138 mg/dL (74-106); High Density Lipoprotein 53 mg/dL; Potassium 4.1 mmol/L (3.5-5.1); Protein, Total 7.7 g/dL (6.4-8.2); Sodium Level 136 mmol/L (136-145); Triglycerides 304 mg/dL; Very Low Density Lipoprotein 61 mg/dL (5-40)
[2018-10-22 17:15] LABS: Hemoglobin A1c 8.3 % (4.2-6.3)
== END ==
PROVIDERS: Family Provider Family Medicine; PCP Family Medicine; Referring Provider Family Medicine; Visit Provider Family Medicine
DX: E11.65 Type 2 diabetes mellitus with hyperglycemia (principal); Z95.2 Presence of prosthetic heart valve; R41.3 Other amnesia; E55.9 Vitamin D deficiency, unspecified
CPT/HCPCS: 36415; 80053; 80061; 82306; 82607; 82728; 82746; 83036

== ENCOUNTER → 2019-04-12 | Outpatient (CLI) | payer OTHER, SELFPAY ==
--- NOTE | 2019-04-12 16:38 | RAD_ITS ---
STUDY: X-RAY - RIGHT KNEE REASON FOR EXAM: Male, 58 years old. Right knee pain TECHNIQUE: 4 view(s) of the knee. COMPARISON: None. FINDINGS: There is no evidence of fracture or dislocation. Moderate to prominent tricompartmental osteoarthritic degenerative changes are present, greatest in the medial and patellofemoral compartments. There are no radiodense foreign bodies. Smoothly marginated opacities are present in the anterior knee soft tissues. RAD/Knee 4 or More Views IMPRESSION: No fracture or dislocation. 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 Smoothly marginated opacities in the anterior knee soft tissues, nonspecific. Correlate with physical exam. Consider ultrasound if additional assessment is needed. Electronically Signed: Syed Dumont, at 17:22 EDT Tel , Service support ,
== END | disposition home or self-care (01) ==
LOC: MTRAD 16:37
PROVIDERS: Family Provider Family Medicine; PCP Family Medicine; Referring Provider Family Medicine; Visit Provider Family Medicine
DX: M25.561 Pain in right knee (principal)
CPT/HCPCS: 73564

== ENCOUNTER → 2019-12-29 16:13 | Outpatient (CLI) | payer OTHER, SELFPAY ==
[2019-07-06 16:09] VITALS: BMI 33.8
[2019-12-29 18:08] LABS: International Normalized Ratio 2.3; Prothrombin Time (Protime)PT. 24.9 SECONDS (11.7-14.9)
[2019-12-29 18:41] LABS: ALB/GLOB Ratio 1.1 RATIO (0.9-2.4); AST(SGOT) 20 U/L (15-37); Alanine Aminotransfer ALT/SGPT 28 U/L (16-61); Albumin, Serum 4.1 g/dL (3.2-5.0); Alkaline Phosphatase 85 U/L (45-117); Anion Gap 10 (5-15); BUN 33 mg/dL (7-18); BUN/Creat Ratio 17.7 RATIO (10-20); Calcium,Total 8.7 mg/dL (8.5-10.1); Chloride 102 mmol/L (98-107); Creatinine, Serum 1.86 mg/dL (0.70-1.30); EST Glomerular Filtration Rate 40 mL/min (>60); Est Glom Filt Rate - Afr Amer 48 mL/min (>60); Globulin 3.6 g/dL (2.2-4.2); Glucose 107 mg/dL (74-106); Potassium 4.5 mmol/L (3.5-5.1); Protein, Total 7.7 g/dL (6.4-8.2); Sodium Level 134 mmol/L (136-145)
[2019-12-31 08:23] LABS: Vitamin D,25 Hydroxy 20.1 ng/mL
== END ==
PROVIDERS: PCP Family Medicine; Referring Provider Family Medicine; Visit Provider Family Medicine
DX: E11.8 Type 2 diabetes mellitus with unspecified complications (principal); E11.65 Type 2 diabetes mellitus with hyperglycemia; Z95.2 Presence of prosthetic heart valve; E55.9 Vitamin D deficiency, unspecified
CPT/HCPCS: 36415; 80053; 82306; 84443; 85610

== ENCOUNTER 2020-03-05 10:29 | Day surgery (SDC) | payer OTHER, SELFPAY ==
[2019-07-06 16:09] VITALS: BMI 33.8
[2020-02-23 14:50] VITALS: BMI 34.2
--- NOTE | 2020-02-23 17:02 | RAD_ITS ---
STUDY: X-RAY CHEST REASON FOR EXAM: Male, 59 years old. PRE OP FOR PPM GENERATOR CHANGE TECHNIQUE: PA and lateral views of the chest. COMPARISON: Prior study of 07/19/2014 FINDINGS: There is a left-sided bipolar pacemaker. The lungs are clear and expanded. There is no demonstrated pleural abnormality. Status post cardiac valvular replacement changes are noted. The heart size is normal. Normal mediastinum and alison. Normal visualized pulmonary arteries. There are calcified plaques of the aortic arch. Normal visualized thoracic spine. There are multiple old healed right-sided rib fractures. There is no demonstrated abnormality of the visualized soft tissue structures of the upper abdomen. RAD/Chest PA and Lateral IMPRESSION: Status post cardiac valvular replacement changes. Bipolar left-sided pacemaker. Multiple old right-sided rib fractures. No acute cardiopulmonary disease process is seen. Electronically Signed: Lamberto Brnanon MD at 17:23 EDT , Service support ,
[2020-03-02 12:25] VITALS: BMI 34.2
[2020-03-05 11:05] LABS: International Normalized Ratio 2.2
--- NOTE | 2020-03-05 13:36 | CL.IE_ITS ---
Patient: CARMEN KHOURY Study Date: 03/05/2020 Performing: Carlos Pacheco MD : 1960 Age: 59 Gender: male PROCEDURES PERFORMED [id number] REMOVAL+REPLACEMENT PACER-DUAL LEAD INDICATIONS End-of-life replacement indicator PROCEDURE DETAILS The patient was brought to the Catheterization Lab in the postabsorptive nonsedated state. Infor med consent was obtained prior to the procedure. Local anesthetic was given subcutaneously to the le ft upper chest area with Lidocaine 2%. Incision was made to the left subclavicular area. PPM generato r was removed. PPM ventricular lead (existing) was checked and tested. PPM atrial lead (existing) was checked and tested. PPM generator was attached to the lead(s) and inserted into the pocket. PPM gene rator was then interrogated by the r programmer. The PPM generator was sutured in place with 3-0 Vicryl . Device pocket was irrigated with antibiotic. Subcutaneous closure was completed with 4-0 Vicryl. Sk in closure was completed with 4-0 Vicryl. Steri-strips applied to Lt chest area. Instrument, sponge, and needle counts were noted to be normal. The patient tolerated the procedure well. Estimated Blood Loss: 10 ml's IMPLANTED / EX-PLANTED DEVICES IMPLANTED DEVICE(S): PPM Generator - Plant Director: [employer], Model # [id number] , Serial # [id number] DEVICE PARAMETERS DEVICE PARAMETERS: Mode - DDDR lower rate - 60 upper rate - 120 Mode- DDDR Lower rate- 60 Upper rate- 120 CONCLUSIONS / RECOMMENDATIONS PROCEDURE MEDICATIONS Fentanyl 50 mcg IV Versed 1 mg IV Versed 1 mg IV Oxygen: 2 L/min via nasal cannula Antibiotic given in appropriate timeframe. Ancef 2 Gm IV @ 03/05/2020 12:42:01 Signed By Carlos Pacheco MD On 03/05/2020 13:35:44 Carlos Pacheco MD
== END 2020-03-05 14:50 | disposition home or self-care (01) ==
PROVIDERS: PCP Family Medicine; Referring Provider Internal Medicine Cardiovascular Disease; Visit Provider Internal Medicine Cardiovascular Disease
DX: Z45.010 Encounter for checking and testing of cardiac pacemaker pulse generator [battery] (principal); I25.10 Atherosclerotic heart disease of native coronary artery without angina pectoris; I42.8 Other cardiomyopathies; Q23.1 Congenital insufficiency of aortic valve; I49.5 Sick sinus syndrome; I48.0 Paroxysmal atrial fibrillation; I44.7 Left bundle-branch block, unspecified; I10 Essential (primary) hypertension; E78.5 Hyperlipidemia, unspecified; E66.9 Obesity, unspecified; Z68.34 Body mass index [BMI] 34.0-34.9, adult; E11.9 Type 2 diabetes mellitus without complications; G47.33 Obstructive sleep apnea (adult) (pediatric); I25.2 Old myocardial infarction; I77.810 Thoracic aortic ectasia; Z95.2 Presence of prosthetic heart valve; Z79.82 Long term (current) use of aspirin; Z79.84 Long term (current) use of oral hypoglycemic drugs; Z79.01 Long term (current) use of anticoagulants; Z79.899 Other long term (current) drug therapy; Z87.891 Personal history of nicotine dependence
CPT/HCPCS: 33228; 36415; 71046; 85610; 99152; 99153; J7050

== ENCOUNTER → 2020-03-13 15:56 | Outpatient (CLI) | payer OTHER, SELFPAY ==
[2020-03-02 12:25] VITALS: BMI 34.2
[2020-03-13 17:06] LABS: International Normalized Ratio 1.8; Prothrombin Time (Protime)PT. 20.4 SECONDS (11.7-14.9)
== END ==
PROVIDERS: PCP Family Medicine; Visit Provider Family Medicine
DX: Z51.81 Encounter for therapeutic drug level monitoring (principal)
CPT/HCPCS: 36415; 85610

== ENCOUNTER → 2020-03-20 18:10 | Outpatient (CLI) | payer OTHER, SELFPAY ==
[2020-03-02 12:25] VITALS: BMI 34.2
--- NOTE | 2020-03-20 18:20 | RAD_ITS ---
History: Leg length. 59-year-old male. Examination and technique: Frontal images of both lower extremities from the hips through the ankles. No comparison. FINDINGS: Measured from the talar dome to the top of the femoral head, both lower extremities measure 100.8 cm. No apparent acute fracture or aggressive osseous lesions. Moderate right knee medial compartment osteoarthritis. Otherwise mild degenerative changes of the knees and hips. Suspect chondrocalcinosis of the left medial and lateral menisci. Previous fixation of the pubic symphysis. No acute soft tissue abnormality. RAD/Bone Length IMPRESSION: No evidence of leg length discrepancy. Electronically Signed: Lamberto Hanna, at 23:51 EDT Tel , Service support ,
== END ==
PROVIDERS: PCP Family Medicine; Referring Provider Podiatrist; Visit Provider Podiatrist
DX: M21.70 Unequal limb length (acquired), unspecified site (principal)
CPT/HCPCS: 77073

== ENCOUNTER 2020-10-11 09:15 | Outpatient (RCR) | payer OTHER, SELFPAY ==
[2020-10-11 08:34] VITALS: BMI 34.4
[2020-10-11 11:18] LABS: International Normalized Ratio 3.1; Prothrombin Time (Protime)PT. 31.4 SECONDS (11.7-14.9)
== END 2020-10-11 18:00 | disposition home or self-care (01) ==
LOC: LAB 09:15
PROVIDERS: Internal Medicine Cardiovascular Disease; PCP Family Medicine; Visit Provider Family Medicine
DX: I48.0 Paroxysmal atrial fibrillation (principal); I42.8 Other cardiomyopathies; I49.5 Sick sinus syndrome; I44.2 Atrioventricular block, complete; I44.7 Left bundle-branch block, unspecified; Q23.1 Congenital insufficiency of aortic valve; Z95.0 Presence of cardiac pacemaker
CPT/HCPCS: 36415; 85610

== ENCOUNTER → 2020-10-23 15:15 | Outpatient (CLI) | payer OTHER, SELFPAY ==
[2020-10-11 08:34] VITALS: BMI 34.4
[2020-10-23 18:01] LABS: Absolute Lymphocyte Count 1.66 X10^3/uL (0.83-4.51); Absolute Neutrophil Count 4.3 X10^3/uL (2.0-7.7); Basophil# 0.04 X10^3/uL; Basophil% 0.6 % (0-1); Eosinophil# 0.07 X10^3/uL; Hematocrit 44.9 % (40-54); Hemoglobin 15.4 g/dL (13.0-16.5); Lymphocyte # 1.66 X10^3/ul (4.0); Lymphocyte % 24.4 % (19-41); Mean Corp Hgb Conc 34.3 g/dL (32-36); Mean Corpuscular Volume 87.4 fL (80-94); Mean Platelet Vol. 9.5 fl (6.2-12.0); Monocyte# 0.67 X10^3/uL; Monocyte% 9.9 % (0-10); NRBC Flagged by Analyzer 0 % (0-5); Neutrophil # 4.33 X10^3/uL (2.7-7.7); Neutrophil % 63.8 % (47-70); Platelet Count 281 K/mm3 (150-450); RBC Distribution Width CV 13.2 % (11.6-14.6); RBC Distribution Width SD 41.8 fl (35.1-43.9); Red Blood Count 5.14 M/mm3 (4.6-6.2); White Blood Count 6.8 K/mm3 (4.4-11.0)
[2020-10-23 18:22] LABS: AST(SGOT) 18 U/L (15-37); Alanine Aminotransfer ALT/SGPT 31 U/L (16-61); Alkaline Phosphatase 87 U/L (45-117); Anion Gap 10 (5-15); BUN 27 mg/dL (7-18); BUN/Creat Ratio 20.5 RATIO (10-20); Calcium,Total 9.2 mg/dL (8.5-10.1); Chloride 102 mmol/L (98-107); Cholesterol 283 mg/dL (200); Creatinine, Serum 1.32 mg/dL (0.70-1.30); EST Glomerular Filtration Rate 59 mL/min (>60); Est Glom Filt Rate - Afr Amer 71 mL/min (>60); Glucose 101 mg/dL (74-106); High Density Lipoprotein 44 mg/dL; PSA,Total - Annual Screen 0.43 ng/mL (0.00-4.00); Potassium 4.3 mmol/L (3.5-5.1); Sodium Level 133 mmol/L (136-145); Triglycerides 486 mg/dL
[2020-10-25 15:08] LABS: LDL, Direct 120295 170 mg/dL (0-99)
== END ==
PROVIDERS: PCP Family Medicine; Referring Provider Family Medicine; Visit Provider Family Medicine
DX: E11.51 Type 2 diabetes mellitus with diabetic peripheral angiopathy without gangrene (principal); Z12.5 Encounter for screening for malignant neoplasm of prostate; Z95.2 Presence of prosthetic heart valve
CPT/HCPCS: 36415; 80053; 80061; 83721; 84153; 85025; G0103

== ENCOUNTER → 2020-10-25 05:54 | Outpatient (CLI) | payer OTHER, SELFPAY ==
[2020-10-11 08:34] VITALS: BMI 34.4
--- NOTE | 2020-10-25 16:26 | STRESSREP ---
Stress Test Report Pharmacologic myocardial perfusion stress test. 60-year-old man with a history of previous non-ST elevation myocardial infarction, aortic valve replacement, pacemaker battery implantation. Resting EKG demonstrates sinus rhythm with a rate of 60 bpm and the permanent paced rhythm. Resting blood pressure is 150/82 mmHg. 0.4 mg of regadenoson was infused per usual protocol followed by rapid venous saline flush injection continuous horticultural technical officer was performed. The maximum heart rate attained was 70 bpm which was 44% of max impacted heart rate the maximum workload was 1 metabolic equivalent. At rest there were no ST or T wave changes noted to suggest abnormal flow reserve at peak infusion nonspecific ST-T wave changes were noted. A left bundle branch block/paced rhythm was present. The final blood pressure was 146/76 mmHg. Myocardial perfusion protocol. Next 14.8 mCi of technetium 99m sestamibi was injected at rest. 0.4 mg of regadenoson was infused per usual protocol. At peak infusion 44.5 mCi of technetium 99m sestamibi was injected stress images were obtained stress and rest images were reconstructed and compared in the short axis vertical long horizontal long axis. Gated images were also obtained Perfusion SPECT analysis: Review of the stress images demonstrate a normal cardiac silhouette size. There is a defect noted involving the mid inferior wall extending to the apex and distal anterior apical wall. The rest of the ivy appear to be well perfused. The resting images demonstrate a similar pattern. The above is suggestive of a distal anterior apical and inferior apical infarct. No ischemia is noted. Gated SPECT analysis: The gated ejection fraction is 38%. Conclusion: Pharmacologic myocardial perfusion stress test with evidence of distal anterior, apical, inferoapical infarct. No ischemia is noted. Mild cardiomyopathy present.
== END ==
PROVIDERS: PCP Family Medicine; Referring Provider Nurse Practitioner Family; Visit Provider Nurse Practitioner Family
DX: I25.118 Atherosclerotic heart disease of native coronary artery with other forms of angina pectoris (principal); Z95.5 Presence of coronary angioplasty implant and graft; I42.8 Other cardiomyopathies; Z95.2 Presence of prosthetic heart valve; R06.02 Shortness of breath
CPT/HCPCS: 78452; 93017; A9500; A4216; J2785

== ENCOUNTER → 2021-04-24 16:26 | Outpatient (CLI) | payer OTHER, SELFPAY ==
[2021-04-24 17:52] LABS: International Normalized Ratio 3.2; Prothrombin Time (Protime)PT. 31.6 SECONDS (11.7-14.9)
[2021-04-24 18:05] LABS: Microalbumin,Random Urine 16.4 mg/L (NO RANGE EST.); Microalbumin:Creatinine Ratio 13.1 mg/g CRE (<30 mg/g CRE)
[2021-04-24 18:11] LABS: AST(SGOT) 15 U/L (15-37); Alanine Aminotransfer ALT/SGPT 26 U/L (16-61); Albumin, Serum 3.9 g/dL (3.2-5.0); Alkaline Phosphatase 79 U/L (45-117); Anion Gap 10 (5-15); BUN 29 mg/dL (7-18); BUN/Creat Ratio 19.5 RATIO (10-20); Calcium,Total 8.7 mg/dL (8.5-10.1); Chloride 104 mmol/L (98-107); Cholesterol 219 mg/dL (200); Creatinine, Serum 1.49 mg/dL (0.70-1.30); EST Glomerular Filtration Rate 51 mL/min (>60); Est Glom Filt Rate - Afr Amer 62 mL/min (>60); Globulin 3.8 g/dL (2.2-4.2); Glucose 121 mg/dL (74-106); High Density Lipoprotein 49 mg/dL; Potassium 4.1 mmol/L (3.5-5.1); Protein, Total 7.7 g/dL (6.4-8.2); Sodium Level 137 mmol/L (136-145); Triglycerides 291 mg/dL; Very Low Density Lipoprotein 58 mg/dL (5-40)
[2021-04-24 18:51] LABS: Hemoglobin A1c 6.6 % (3.8-5.6)
== END ==
PROVIDERS: PCP Family Medicine; Visit Provider Family Medicine
DX: E11.51 Type 2 diabetes mellitus with diabetic peripheral angiopathy without gangrene (principal); Z51.81 Encounter for therapeutic drug level monitoring
CPT/HCPCS: 36415; 80053; 80061; 82043; 82570; 83036; 85610

== ENCOUNTER → 2021-05-07 08:57 | Outpatient (CLI) | payer OTHER, SELFPAY ==
[2021-05-07 10:18] LABS: Prothrombin Time (Protime)PT. 41.1 SECONDS (11.7-14.9)
[2021-05-07 10:25] LABS: International Normalized Ratio 4.4
== END ==
PROVIDERS: PCP Family Medicine; Visit Provider Family Medicine
DX: Z95.2 Presence of prosthetic heart valve (principal)
CPT/HCPCS: 36415; 85610

== ENCOUNTER → 2021-10-14 09:04 | Outpatient (CLI) | payer OTHER, SELFPAY ==
--- NOTE | 2021-10-14 09:10 | RAD_ITS ---
STUDY: X-RAY - RIGHT FOOT CLINICAL: Male, 61 years old. Pain. TECHNIQUE: 3 view(s) of the foot. COMPARISON: None. FINDINGS: Osteopenia. Inferior calcaneal spur. Mild arthrosis of the tibiotalar and subtalar joints. Mild arthrosis of the midfoot. Moderate arthrosis of the MTP and IP joints with hammertoe deformities. Minimal hallux valgus deformity. Vascular calcification. RAD/Foot min 3 Views IMPRESSION: Osteopenia with osteoarthritic changes as described. No acute abnormality, chondrocalcinosis, erosive changes or periostitis. Electronically Signed: Bright Tenorio MD at 9:30 EST , Service support ,
== END ==
PROVIDERS: PCP Family Medicine; Referring Provider Nurse Practitioner Family; Visit Provider Nurse Practitioner Family
DX: M79.671 Pain in right foot (principal)
CPT/HCPCS: 73630

== ENCOUNTER 2021-11-08 09:25 | Outpatient (CLI) | payer OTHER, SELFPAY ==
[2021-11-08 10:16] LABS: International Normalized Ratio 3.3
== END 2021-11-08 23:59 | disposition short-term general hospital (02) ==
LOC: LAB 09:27
PROVIDERS: PCP Family Medicine; Referring Provider Family Medicine; Visit Provider Family Medicine
DX: Z95.2 Presence of prosthetic heart valve (principal)
CPT/HCPCS: 36415; 85610

== ENCOUNTER 2022-01-02 08:10 | Outpatient (CLI) | payer OTHER, SELFPAY ==
--- NOTE | 2022-01-02 08:11 | ECHOD_ITS ---
Reason For Study: AVR Procedure This was a 2D Doppler, Color Flow transthoracic echocardiogram. Exam performed in department. Left Ventricle Normal LV size. Moderate concentric left ventricular hypertrophy. The estimated ejection fraction is 40 %. Stage 1 diastolic dysfunction. There are regional wall motion abnormalities as specified. Right Ventricle Normal RV size. ICD or pacer leads identified within the right ventricle. Normal systolic function. Atria The left atrium is mildly enlarged. Normal right atrium. Mitral Valve Normal mitral valve. Mild (1+) eccentric mitral valve insufficiency. Tricuspid Valve Normal tricuspid valve. Mild tricuspid valve insufficiency. Pulmonary artery systolic pressure is 40 mmHg. Aortic Valve Bioprosthetic aortic valve. Great Vessels Normal aortic root. The pulmonary artery is normal size. Normal inferior vena cava. Pericardium/Pleural No pericardial effusion. MMode/2D Measurements & Calculations LVIDd: 5.2 cm IVSd: 1.6 cm LVOT diam: 2.1 cm LVIDs: 3.5 cm LVPWd: 1.3 cm LVOT area: 3.6 cm2 RVDd: 3.6 cm FS: 32.4 % Ao root diam: 4.2 cm LAV(MOD-bp): 78.0 ml LVAd ap4: 41.5 cm2 LAV(MOD-bp) Indexed: 34.1 ml/m2 LVLd ap4: 9.3 cm LAV(MOD-sp2): 70.4 ml EDV(MOD-sp4): 148.0 ml LAV(MOD-sp4): 83.6 ml EDV(sp4-el): 157.0 ml LVAs ap4: 33.5 cm2 LVLs ap4: 9.3 cm ESV(MOD-sp4): 97.9 ml ESV(sp4-el): 103.1 ml EF(MOD-sp4): 33.9 % EF(sp4-el): 34.3 % SV(MOD-sp4): 50.1 ml SV(MOD-sp2): 85.5 ml LVAd ap2: 47.7 cm2 LVLd ap2: 9.6 cm EDV(MOD-sp2): 193.9 ml EDV(sp2-el): 201.3 ml LVAs ap2: 34.6 cm2 LVLs ap2: 8.9 cm ESV(MOD-sp2): 108.4 ml ESV(sp2-el): 113.7 ml EF(MOD-sp2): 44.1 % SV(sp4-el): 53.9 ml LA A4 area: 22.8 cm2 LA dimension(2D): 4.0 cm RA A4 area: 20.4 cm2 Doppler Measurements & Calculations MV E max avtar: 82.8 cm/sec Lat Peak E' Avtar: 7.8 cm/sec Med Peak E' Avtar: 4.8 cm/sec MV A max avtar: 89.4 cm/sec E/E' lat: 10.6 E/E' med: 17.3 MV E/A: 0.93 Ao V2 max: 186.4 cm/sec LV V1 max: 114.4 cm/sec SV(LVOT): 98.0 ml Ao max P.9 mmHg LV V1 max P.2 mmHg Ao V2 mean: 124.3 cm/sec LV V1 mean P.7 mmHg Ao mean P.0 mmHg LV V1 mean: 77.0 cm/sec Ao V2 VTI: 38.4 cm LV V1 VTI: 27.2 cm RADHA(I,D): 2.6 cm2 RAHDA(V,D): 2.2 cm2 PA V2 max: 102.5 cm/sec TR max avtar: 300.3 cm/sec TR max P.1 mmHg ECHO/Echo Complete Interpretation Summary Normal LV size. Moderate concentric left ventricular hypertrophy. The estimated ejection fraction is 40 %. Stage 1 diastolic dysfunction. The left atrium is mildly enlarged. Bioprosthetic aortic valve. Ordering Physician: Dajuan Sheppard/Carlos Pacheco Referring Physician: En Bah MD Performed By: Elsi Lara RDCS
== END 2022-01-02 23:59 | disposition home or self-care (01) ==
LOC: CVS 08:11
PROVIDERS: PCP Family Medicine; Referring Provider Nurse Practitioner Family; Visit Provider Nurse Practitioner Family
DX: I48.0 Paroxysmal atrial fibrillation (principal); I25.5 Ischemic cardiomyopathy; I44.7 Left bundle-branch block, unspecified; I10 Essential (primary) hypertension; Z98.890 Other specified postprocedural states; Z95.2 Presence of prosthetic heart valve
CPT/HCPCS: 93306

== ENCOUNTER → 2022-02-14 | Outpatient (CLI) | payer OTHER, SELFPAY ==
[2022-02-14 10:17] LABS: Absolute Lymphocyte Count 1.56 X10^3/uL (0.83-4.51); Absolute Neutrophil Count 4.6 X10^3/uL (2.0-7.7); Basophil# 0.03 X10^3/uL; Basophil% 0.4 % (0-1); Eosinophil# 0.07 X10^3/uL; Hematocrit 46.3 % (40-54); Hemoglobin 16.1 g/dL (13.0-16.5); Lymphocyte # 1.56 X10^3/ul (0.83-4.51); Lymphocyte % 22.7 % (19-41); Mean Corp Hgb Conc 34.8 g/dL (32-36); Mean Corpuscular Hgb 30.3 pg (27.0-32.0); Mean Corpuscular Volume 87.2 fL (80-94); Monocyte# 0.57 X10^3/uL; Monocyte% 8.3 % (0-10); NRBC Flagged by Analyzer 0 % (0-5); Neutrophil # 4.62 X10^3/uL (2.7-7.7); Neutrophil % 67.3 % (47-70); Platelet Count 279 K/mm3 (150-450); RBC Distribution Width CV 12.9 % (11.6-14.6); RBC Distribution Width SD 41.1 fl (35.1-43.9); Red Blood Count 5.31 M/mm3 (4.6-6.2); White Blood Count 6.9 K/mm3 (4.4-11.0)
[2022-02-14 10:31] LABS: Microalbumin,Random Urine 20.6 mg/L (NO RANGE EST.); Microalbumin:Creatinine Ratio 23.3 mg/g CRE (<30 mg/g CRE)
[2022-02-14 10:34] LABS: Prothrombin Time (Protime)PT. 22.6 SECONDS (11.7-14.9)
[2022-02-14 10:51] LABS: AST(SGOT) 14 U/L (15-37); Alanine Aminotransfer ALT/SGPT 34 U/L (16-61); Albumin, Serum 4.1 g/dL (3.2-5.0); Alkaline Phosphatase 76 U/L (45-117); Anion Gap 4 (5-15); BUN 23 mg/dL (7-18); Calcium,Total 9.7 mg/dL (8.5-10.1); Chloride 105 mmol/L (98-107); Cholesterol 187 mg/dL (200); Creatinine, Serum 1.28 mg/dL (0.70-1.30); EST Glomerular Filtration Rate 60 mL/min (>60); Est Glom Filt Rate - Afr Amer 73 mL/min (>60); Globulin 4.2 g/dL (2.2-4.2); Glucose 133 mg/dL (74-106); High Density Lipoprotein 49 mg/dL; Potassium 4.2 mmol/L (3.5-5.1); Protein, Total 8.3 g/dL (6.4-8.2); Sodium Level 136 mmol/L (136-145); Triglycerides 148 mg/dL; Very Low Density Lipoprotein 30 mg/dL (5-40)
== END | disposition home or self-care (01) ==
PROVIDERS: PCP Family Medicine; Referring Provider Family Medicine; Visit Provider Family Medicine
DX: E11.51 Type 2 diabetes mellitus with diabetic peripheral angiopathy without gangrene (principal); Z95.2 Presence of prosthetic heart valve; R53.83 Other fatigue
CPT/HCPCS: 36415; 80053; 80061; 82043; 82570; 84443; 85025; 85610

== ENCOUNTER → 2022-06-02 | Outpatient (CLI) | payer OTHER, SELFPAY | END | disposition home or self-care (01) | LOC: SL 19:58 | PROVIDERS: PCP Family Medicine; Visit Provider Nurse Practitioner Family | DX: G47.10 Hypersomnia, unspecified (principal) | CPT/HCPCS: 95810 ==

== ENCOUNTER → 2022-07-18 | Outpatient (CLI) | payer OTHER, SELFPAY ==
[2022-07-18 10:50] LABS: Ferritin 74 ng/mL (26-388); Iron 93 ug/dL (65-175); Iron Binding Capacity,Total 340 ug/dL (250-450); PERCENT IRON SATURATION 27.4 % (15.0-55.0)
[2022-07-24 13:41] LABS: Vitamin B1, Thiamine 134.5 nmol/L (66.5-200.0)
== END | disposition home or self-care (01) ==
LOC: PAVLAB 09:44
PROVIDERS: PCP Family Medicine; Referring Provider Nurse Practitioner Acute Care; Visit Provider Nurse Practitioner Acute Care
DX: G25.81 Restless legs syndrome (principal)
CPT/HCPCS: 36415; 82728; 83540; 83550; 84425

== ENCOUNTER → 2022-11-06 | Outpatient (CLI) | payer OTHER, SELFPAY ==
[2022-11-06 12:14] LABS: Hematocrit 40.8 % (40-54); Mean Corp Hgb Conc 34.3 g/dL (32-36); Mean Corpuscular Volume 87.4 fL (80-94); Mean Platelet Vol. 9.6 fl (6.2-12.0); Platelet Count 257 K/mm3 (150-450); RBC Distribution Width CV 13.2 % (11.6-14.6); Red Blood Count 4.67 M/mm3 (4.6-6.2); White Blood Count 5.3 K/mm3 (4.4-11.0)
[2022-11-06 12:35] LABS: Microalbumin,Random Urine 34.2 mg/L (NO RANGE EST.); Microalbumin:Creatinine Ratio 23.4 mg/g CRE (<30 mg/g CRE)
[2022-11-06 12:51] LABS: ALB/GLOB Ratio 1.1 RATIO (0.9-2.4); AST(SGOT) 11 U/L (15-37); Alanine Aminotransfer ALT/SGPT 27 U/L (16-61); Albumin, Serum 3.5 g/dL (3.2-5.0); Alkaline Phosphatase 73 U/L (45-117); Anion Gap 7 (5-15); BUN 21 mg/dL (7-18); BUN/Creat Ratio 18.8 RATIO (10-20); Calcium,Total 8.5 mg/dL (8.5-10.1); Chloride 108 mmol/L (98-107); Cholesterol 196 mg/dL (200); Creatinine, Serum 1.12 mg/dL (0.70-1.30); EST Glomerular Filtration Rate 70 mL/min (>60); Est Glom Filt Rate - Afr Amer 85 mL/min (>60); Globulin 3.2 g/dL (2.2-4.2); Glucose 169 mg/dL (74-106); High Density Lipoprotein 50 mg/dL; Potassium 4.6 mmol/L (3.5-5.1); Protein, Total 6.7 g/dL (6.4-8.2); Sodium Level 139 mmol/L (136-145); Triglycerides 236 mg/dL; Very Low Density Lipoprotein 47 mg/dL (5-40)
[2022-11-06 12:52] LABS: Hemoglobin A1c 8.3 % (3.8-5.6)
== END | disposition home or self-care (01) ==
LOC: MFPLAB 10:55
PROVIDERS: PCP Family Medicine; Visit Provider Family Medicine
DX: Z95.2 Presence of prosthetic heart valve (principal); E11.51 Type 2 diabetes mellitus with diabetic peripheral angiopathy without gangrene
CPT/HCPCS: 36415; 80053; 80061; 82043; 82570; 83036; 85027

== ENCOUNTER → 2022-11-21 | Outpatient (CLI) | payer OTHER, SELFPAY ==
--- NOTE | 2022-11-21 15:08 | ECHOD_ITS ---
Reason For Study: Re Evaluate EF with Med Change Procedure This was a 2D Doppler, Color Flow transthoracic echocardiogram. Exam performed in department. Left Ventricle Normal LV size. The estimated ejection fraction is 37 %. Stage 1 diastolic dysfunction. Moderate segmental systolic dysfunction (see wall motion). There is mild to moderate global hypokinesis of the left ventricle. Right Ventricle Normal RV size. ICD or pacer leads identified within the right ventricle. Normal systolic function. Atria Normal left atrium. Normal right atrium. Mitral Valve Normal mitral valve. Tricuspid Valve Normal tricuspid valve. Mild to moderate (1-2+) tricuspid valve insufficiency. Pulmonary artery systolic pressure is 50 mmHg. Aortic Valve Bioprosthetic aortic valve functioning normally. Pulmonic Valve Normal pulmonic valve. Great Vessels Normal aortic root. The pulmonary artery is normal size. Normal inferior vena cava. Pericardium/Pleural No pericardial effusion. MMode/2D Measurements & Calculations LVIDd: 5.8 cm IVSd: 1.5 cm LVOT diam: 2.1 cm LVIDs: 4.3 cm LVPWd: 1.1 cm LVOT area: 3.6 cm2 RVDd: 4.2 cm FS: 26.2 % Ao root diam: 4.8 cm LAV(MOD-bp): 49.0 ml LVAd ap4: 53.0 cm2 LA dimension: 4.6 cm LAV(MOD-bp) Indexed: 21.0 ml/m2 LVLd ap4: 9.4 cm LAV(MOD-sp2): 52.6 ml EDV(MOD-sp4): 237.9 ml LAV(MOD-sp4): 43.6 ml EDV(sp4-el): 253.1 ml LVAs ap4: 40.8 cm2 LVLs ap4: 9.0 cm ESV(MOD-sp4): 148.6 ml ESV(sp4-el): 157.3 ml EF(MOD-sp4): 37.5 % EF(sp4-el): 37.8 % SV(MOD-sp4): 89.2 ml SV(sp4-el): 95.7 ml LA A4 area: 16.3 cm2 RA A4 area: 13.7 cm2 Time Measurements MV dec time: 0.24 sec Doppler Measurements & Calculations MV E max avtar: 69.7 cm/sec Lat Peak E' Avtar: 6.7 cm/sec Med Peak E' Avtar: 5.0 cm/sec MV A max avtar: 83.2 cm/sec E/E' lat: 10.4 E/E' med: 14.1 MV E/A: 0.84 MV V2 max: 93.1 cm/sec MV P1/2t max avtar: 79.7 cm/sec Ao V2 max: 174.0 cm/sec MV max P.5 mmHg MV P1/2t: 77.8 msec Ao max P.1 mmHg MV V2 mean: 50.3 cm/sec Ao V2 mean: 110.8 cm/sec MV mean P.2 mmHg MV dec slope: 300.1 cm/sec2 Ao mean P.9 mmHg MV V2 VTI: 32.1 cm MVA(P1/2t): 2.8 cm2 Ao V2 VTI: 41.9 cm AV (velocity ratio): 0.64 MVA(VTI): 3.0 cm2 RADHA(I,D): 2.3 cm2 RADHA(V,D): 2.5 cm2 LV V1 max: 118.2 cm/sec SV(LVOT): 96.9 ml PA V2 max: 117.0 cm/sec LV V1 max P.6 mmHg PA V2 mean: 88.6 cm/sec LV V1 mean P.0 mmHg LV V1 mean: 80.6 cm/sec LV V1 VTI: 26.8 cm TR max avtar: 332.9 cm/sec TR max P.3 mmHg ECHO/Echo Complete Interpretation Summary Normal LV size. Stage 1 diastolic dysfunction. The estimated ejection fraction is 37 %. Pulmonary artery systolic pressure is 50 mmHg. Compared to previous study, the left ventricular systolic function is the same. . Ordering Physician: Dajuan Sheppard Referring Physician: En Bah MD Performed By: Salomón Warner RCS
== END | disposition home or self-care (01) ==
PROVIDERS: PCP Family Medicine; Referring Provider Nurse Practitioner Family; Visit Provider Nurse Practitioner Family
DX: I25.5 Ischemic cardiomyopathy (principal); Z95.5 Presence of coronary angioplasty implant and graft; I10 Essential (primary) hypertension; E78.5 Hyperlipidemia, unspecified
CPT/HCPCS: 93306

== ENCOUNTER → 2022-12-17 | Outpatient (CLI) | payer OTHER, SELFPAY ==
--- NOTE | 2022-12-17 15:05 | RAD_ITS ---
EXAM: XR LUMBOSACRAL SPINE, 2 OR 3 VIEWS CLINICAL INDICATION: Low back pain for 5 years. History of pelvis surgery and L4-L5 radiculopathy. TECHNIQUE: Frontal and lateral views of the lumbar spine and sacrum. This report was created using [employer] report generation technology. COMPARISON: None. FINDINGS: VERTEBRAE: Mild curvature of the lumbar spine convex to the right. Slight anterior subluxation of L4 on L5. Bilateral multilevel vertebral facet arthropathy in the lower lumbar spine. Preserved vertebral body height. No fracture. No spondylolisthesis. SACRUM/COCCYX: Sacroiliac screw fixation bilaterally. DISC SPACES: Multilevel mild degenerative disc disease. GASTROINTESTINAL TRACT: Unremarkable as visualized. Included bowel gas pattern is non-obstructive. RAD/Lumbar Spine 2 or 3 Views IMPRESSION: Mild degenerative changes. No acute abnormality identified. Electronically Signed: Yassine Perea MD at 0:33 EST ,
== END | disposition home or self-care (01) ==
LOC: RAD 14:54
PROVIDERS: PCP Family Medicine; Visit Provider Anesthesiology Pain Medicine
DX: M51.36 Other intervertebral disc degeneration, lumbar region (principal); M51.37 Other intervertebral disc degeneration, lumbosacral region
CPT/HCPCS: 72100

== ENCOUNTER → 2023-03-19 | Outpatient (CLI) | payer OTHER, SELFPAY ==
--- NOTE | 2023-03-19 07:38 | CT_ITS ---
STUDY: CT LUMBAR SPINE WITHOUT CONTRAST REASON FOR EXAM: Male, 62 years old. RADICULAPATHY RADIATION DOSAGE (If Supplied By Facility): CTDIvol = ( 41.95 ) mGy, DLP = ( 1271.76 ) mGycm TECHNIQUE: The patient was scanned in a multi detector CT scanner. High resolution transaxial imaging was performed. Images were obtained from T12 to S1 vertebral level. Sagittal and coronal images were reconstructed. Individualized dose optimization techniques were used for this CT. COMPARISON: None FINDINGS: Normal lumbar lordosis. There is no substantial scoliosis. Normal vertebrae of the lumbar spine. L1-2: Normal endplates. Normal disc height and morphology. Normal bilateral facet joints. Normal central canal and bilateral lateral recesses. Normal bilateral intervertebral neural foramina. L2-3: Normal endplates. Normal disc height and morphology. Normal bilateral facet joints. Normal central canal and bilateral lateral recesses. Normal bilateral intervertebral neural foramina. L3-4: Normal endplates. Normal disc height and morphology. Normal bilateral facet joints. Normal central canal and bilateral lateral recesses. Normal bilateral intervertebral neural foramina. L4-5: Facet joint osteoarthritis with hypertrophy. Mild degree of diffuse posterior disc bulge. Mild to moderate degree of bilateral neural foraminal stenosis. L5-S1: Normal endplates. Normal disc height and morphology. Normal bilateral facet joints. Normal central canal and bilateral lateral recesses. Normal bilateral intervertebral neural foramina. Screws are seen transversing the sacroiliac joints bilaterally. Normal visualized paraspinous soft tissue structures. CT/Spine Lumbar without Contrast IMPRESSION: Facet joint osteoarthritis and hypertrophy with diffuse posterior disc bulge at the L4-L5 level causing bilateral neural foraminal stenosis. Metallic screws are seen through both sacroiliac joints. Electronically Signed: Brodie Gardner MD at 11:14 EDT ,
== END | disposition home or self-care (01) ==
LOC: CT 07:36
PROVIDERS: PCP Family Medicine; Referring Provider Anesthesiology Pain Medicine; Visit Provider Anesthesiology Pain Medicine
DX: M54.16 Radiculopathy, lumbar region (principal)
CPT/HCPCS: 72131

== ENCOUNTER → 2023-09-25 | Outpatient (CLI) | payer OTHER, SELFPAY ==
--- NOTE | 2023-09-25 12:35 | CT_ITS ---
STUDY: CT RIGHT SHOULDER REASON FOR EXAM: Male, 63 years old. CONTUSION OF RIGHT SHOULDER. RADIATION DOSAGE (If Supplied By Facility): CTDIvol = ( 23.80 ) mGy, DLP = ( 590.74 ) mGycm TECHNIQUE: The patient was scanned in a multi detector CT scanner. High resolution transaxial imaging was performed without the administration of intravenous contrast material. Intra-articular contrast was injected. Sagittal and coronal images were reconstructed. Individualized dose optimization techniques were used for this CT. COMPARISON: None. FINDINGS: There is moderate osteoarthritis, with moderate articular joint space narrowing and moderate osteoarthritic spurring. Normal glenoid rim, neck and visualized scapula. Normal humeral head, neck and tuberosities. Normal coracoid process. Normal visualized lateral clavicle. Normal acromioclavicular articulation. There is a Type II morphology (curved), with a neutral orientation. There is evidence of a rotator cuff tear. CT/Extremity Upper WITH Contrast IMPRESSION: Rotator cuff tear. Electronically Signed: Brodie Gardner MD at 14:32 EST ,
[2023-09-25] MEDS: Lidocaine 2% (5ml sdv) 5 ML VIAL.MPF (12:57)
[2023-09-25] MEDS: Gadoterate Meglumine Diluted 10 ML, Iopamidol 5 ML, Lidocaine 1% (20 ml mdv) 5 ML, Epin... INTRAARTIC (13:04)
[2023-09-25] MEDS: Iopamidol 10 ML in Syringe 1 EACH 600 ML INTRAARTIC (13:04)
--- NOTE | 2023-09-25 13:10 | RAD_ITS ---
STUDY: X-RAY - RIGHT SHOULDER REASON FOR EXAM: Male, 63 years old. Post Arthrogram TECHNIQUE: 2 view(s) of the shoulder. COMPARISON: None. FINDINGS: 2 views of the shoulder were obtained following intra-articular contrast administration. RAD/Shoulder min 2 Views IMPRESSION: 2 images were obtained following intra-articular contrast administration. Electronically Signed: Broide Gardner MD at 13:58 EST ,
--- NOTE | 2023-09-25 13:46 | PRO.PCM_ITS ---
Procedure Report Date of Procedure: 09/25/23 Assessment & Plan Assessment/Plan (1) Right shoulder pain: QUALIFIERS: Chronicity: unspecified Qualified Code(s): M25.511 - Pain in right shoulder PLAN: PROCEDURE: Arthrogram-right shoulder ORDERING PROVIDER: Dr. Carlos Reyes INDICATION: Male, 63 years old. Right shoulder contusion with pain. PROVIDER: Cluadia Landeros APRN-[facility] CONSENT: The procedure as well as the benefits and possible complications including bleeding and infection were explained to the patient. Informed consent was obtained. TECHNIQUE: The patient was positioned supine. The overlying skin was prepped and draped in the usual sterile fashion. Following injection of local anesthetic with 2% lidocaine and under direct fluoroscopic guidance, a 22-gauge spinal needle was placed into the right shoulder. 2 cc of Isovue 300 was injected for confirmation. Following this, 10 cc of Clariscan contrast was injected. All elements of maximal sterile barrier technique followed. Patient tolerated procedure well. IMPRESSION: Successful fluoroscopic guided right shoulder arthrogram. Procedures Radiology Radiology Xray Procedures: [id number] Arthrogram Shoulder
== END | disposition home or self-care (01) ==
LOC: RAD 12:23
PROVIDERS: PCP Family Medicine; Referring Provider Orthopaedic Surgery; Visit Provider Orthopaedic Surgery
DX: S40.011A Contusion of right shoulder, initial encounter (principal)
CPT/HCPCS: 20610; 23350; 73030; 73040; 73201; Q9967

== ENCOUNTER → 2023-10-29 | Outpatient (CLI) | payer OTHER, SELFPAY ==
--- OUTSIDE RECORDS SUMMARY | 2023-10-29 16:30 | XMS RPT_ITS | CCD ---
Author Name Unknown Address [address] [place] [address] Organization [facility] Care Team Providers Care Armature Connector Name Role Phone Olvin Cal Miles Unavailable Melyssa Pope Unavailable Unavailable Melyssa Pope Unavailable Unavailable Chase Sethi Unavailable Unavailable Chase Sethi Unavailable Unavailable EMERGENCY, TRIAGE PROTOCOL Unavailable Unava ilable EMERGENCY, TRIAGE PROTOCOL Unavailable Unava ilable BAH, CAL MILES Unavailable Unavailable EMERGENCY, TRIAGE PROTOCOL Unavailable Unava ilable RICH FERNANDO Unavailable Unavailable VISHAL APONTE Unavailable Unavailable ONE, TRAUMA Unavailable Unavailable BAH, CAL MILES Unavailable Unavailable ASHLEY QUARLES Unavailable Unavailab MELQUIADES Caal Unavailable Unavailable NIMO WHYTE Unavailable Unavailable MELYSSA FELIZ Unavailable Unavai lable , IMRAN MOHAMMED Unavailable Unavailab HOOD Llanos Unavailable Unavailable BAH, CAL MILES Unavailable Unavailable SYSTEM, PROVIDER NOT IN Unavailable Unavaila ble SYSTEM, PROVIDER NOT IN Unavailable Unavaila ble BAH, CAL MILES Unavailable Unavailable SYSTEM, PROVIDER NOT IN Unavailable Unavaila ble SYSTEM, PROVIDER NOT IN Unavailable Unavaila ble BAH, CAL MILES Unavailable Unavailable , IMRAN MOHAMMED Unavailable Unavailab ADAIR Hernandez Unavailable Unavailable BAH, CAL MILES Unavailable Unavailable ADAIR ALVARADO. Unavailable Unavailable JENNY ADAIR A. Unavailable Unavailable BAH, CAL MILES Unavailable Unavailable SHAIKH IMRAN MOHAMMED Unavailable Unavailab HUANG Tejada Unavailable Unavailab le BAH, CAL MILES Unavailable Unavailable FARRAR, IMRAN MOHAMMED Unavailable Unavailab le MARTI, MELQUIADES LEANDRA Unavailable Unavailable BAH, CAL MILES Unavailable Unavailable FARRAR, IMRAN MOHAMMED Unavailable Unavailab le MARTI, MELQUIADES LEANDRA Unavailable Unavailable BAH, CAL MILES Unavailable Unavailable FARRAR, IMRAN MOHAMMED Unavailable Unavailab le BERDIS, HOOD Unavailable Unavailable BAH, CAL MILES Unavailable Unavailable BAH, CAL MILES Unavailable Unavailable KYLE QUEEN Unavailable Unavailable MARTI, MELQUIADES LEANDRA Unavailable Unavailable MARTI, MELQUIADES LEANDRA Unavailable Unavailable BAH, CAL MILES Unavailable Unavailable MARTI, MELQUIADES LEANDRA Unavailable Unavailable BAH, CAL MILES Unavailable Unavailable MARTI, MELQUIADES LEANDRA Unavailable Unavailable MARTI, MELQUIADES LEANDRA Unavailable Unavailable BAH, CAL MILES Unavailable Unavailable MARTI, MELQUIADES LEANDRA Unavailable Unavailable BAH, CAL MILES Unavailable Unavailable MARTI, MELQUIADES LEANDRA Unavailable Unavailable MARTI, MELQUIADES LEANDRA Unavailable Unavailable BAH, CAL MILES Unavailable Unavailable MARTI, MELQUIADES LEANDRA Unavailable Unavailable BAH, CAL MILES Unavailable Unavailable MARTI, MELQUIADES LEANDRA Unavailable Unavailable BAH, CAL MILES Unavailable Unavailable MARTI, MELQUIADES LEANDRA Unavailable Unavailable MARTI, MELQUIADES LEANDRA Unavailable Unavailable BAH, CAL MILES Unavailable Unavailable Bah, Cal Miles Primary Care Provider BAH, CAL A Consulting Unavailable BAH, CAL A Attending Unavailable BAH, CAL A Admitting Unavailable BAH, CAL A Primary Care Unavailable PROVIDER, UNKNOWN Consulting Unavailable BHA, CAL A Attending Unavailable BAH, CAL A Consulting Unavailable BAH, CAL A Admitting Unavailable BAH, CAL A Primary Care Unavailable PROVIDER, UNKNOWN Consulting Unavailable BAH, CAL A Primary Care Unavailable BAH, CAL A Attending Unavailable BAH, CAL A Admitting Unavailable BAH, CAL A Consulting Unavailable PROVIDER, UNKNOWN Consulting Unavailable BAH, CAL A Attending Unavailable BAH, CAL A Admitting Unavailable BAH, CAL A Primary Care Unavailable BAH, CAL A Consulting Unavailable PROVIDER, UNKNOWN Consulting Unavailable BAH, CAL A Attending Unavailable BAH, CAL A Admitting Unavailable BAH, CAL A Primary Care Unavailable BAH, CAL A Consulting Unavailable PROVIDER, UNKNOWN Consulting Unavailable BAH, CAL A Attending Unavailable BAH, CAL A Admitting Unavailable BAH, CAL A Primary Care Unavailable BAH, CAL A Consulting Unavailable PROVIDER, UNKNOWN Consulting Unavailable BAH, CAL A Consulting Unavailable BAH, CAL A Attending Unavailable BAH, CAL A Admitting Unavailable LUIS LINDQUIST WHITING CAN WORKER%C Referring Unavailable BAH, CAL A Primary Care Unavailable PROVIDER, UNKNOWN Consulting Unavailable BAH, CAL A Consulting Unavailable BAH, CAL A Attending Unavailable BHA, CAL A Admitting Unavailable BAH, CAL A Primary Care Unavailable PROVIDER, UNKNOWN Consulting Unavailable SADAF GRAHAM DR Admitting Unavailable SADAF GRAHAM DR Attending Unavailable SADAF GRAHAM DR Primary Care Unavailable BAH, CAL A Consulting Unavailable PROVIDER, UNKNOWN Consulting Unavailable CHASE DUMAS DO Attending Unavailable CHASE DUMAS DO Admitting Unavailable BAH, CAL A Referring Unavailable BAH, CAL A Consulting Unavailable CHASE DUMAS DO Primary Care Unavailable PROVIDER, UNKNOWN Consulting Unavailable OLVIN, CAL A Consulting Unavailable SADAF GRAHAM DR Attending Unavailable SADAF GRAHAM DR Primary Care Unavailable SADAF GRAHAM DR Admitting Unavailable PROVIDER, UNKNOWN Consulting Unavailable BAH, CAL A Consulting Unavailable SADAF GRAHAM DR Attending Unavailable SADAF GRAHAM DR Primary Care Unavailable SADAF GRAHAM DR Admitting Unavailable PROVIDER, UNKNOWN Consulting Unavailable BAH, CAL A Attending Unavailable BAH, CAL A Admitting Unavailable BAH, CAL A Consulting Unavailable BAH, CAL A Primary Care Unavailable PROVIDER, UNKNOWN Consulting Unavailable BAH, CAL A Consulting Unavailable BAH, CAL A Attending Unavailable BAH, CAL A Admitting Unavailable BAH, CAL A Primary Care Unavailable PROVIDER, UNKNOWN Consulting Unavailable Medications Current Medications Medication Drug Class(es) Dates Sig (Normalized) Sig (Original) acetaminophen 500 mg oral tablet (4 sources) take 1 tablet by mouth every six hours as needed acetaminophen (TYLENOL) 500 MG tablet Take 500 mg by mouth every 6 (six) hours as needed for pain. 0 Active calcium carbonate 500 mg chewable tablet (5 sources) Start: 09-17-2017 End: 10-22-2017 calcium carbonate (TUMS) 200 mg calcium (500 mg) chewable tablet Chew and Swallow 1 (one) tablet (500 mg total) 2 (two) times a day as needed. 10 tablet 0 09/22/2017 10/22/2017 Active cyclobenzaprine hydrochloride 10 mg oral tablet (5 sources) Muscle Relaxant Start: 09-11-2017 End: 10-02-2017 take 1 tablet by mouth three times daily as needed for muscle spasms cyclobenzaprine (FLEXERIL) 10 MG tablet Take 1 (one) tablet (10 mg total) by mouth 3 (three) times a day as needed for muscle spasms. 30 tablet 0 09/22/2017 10/02/2017 Active docusate sodium 50 mg / sennosides, intermediate 8.6 mg oral tablet (5 sources) Start: 09-22-2017 End: 10-22-2017 take 1 tablet by mouth once senna-docusate (SENNA-S) 8.6-50 mg Take 1 (one) tablet by mouth nightly. 30 tablet 0 09/22/2017 10/22/2017 Active Completed/Discontinued Medications Medication Drug Class(es) Dates Sig (Normalized) Sig (Original) acetaminophen 325 mg / oxyCODONE hydrochloride 5 mg oral tablet (6 sources) Opioid Agonist Start: 09-14-2017 End: 09-14-2017 take 2 tablets by mouth every twenty-four hours oxyCODONE-acetami nophen (PERCOCET) 5-325 mg per tablet 2 tablet 2 tablet, Oral, Once as needed, moderate to severe pain, Starting 09/14/17 at 1530, For 1 dose, PACU (only), [] While in PACU when tolerating orals. [] Use oral route first, if tolerated. Given 09/14/2017 16:43 EST 1 tablet Problems Active Problems Problem Classification Problem Date Documented Date Episodic/Chronic Cardiac dysrhythmias (10 sources) Paroxysmal atrial fibrillation; Translations: [Paroxysmal atrial fibrillation] Onset: 09-11-2017 09-11-2017 Chronic Conduction disorders (9 sources) H/O: cardiac pacemaker in situ; Translations: [History of pacemaker] Onset: 09-14-2017 09-15-2017 Chronic Coronary atherosclerosis and other heart disease (10 sources) Coronary arteriosclerosis in mcgrath artery; Translations: [Ischemic cardiomyopathy] Onset: 09-11-2017 09-11-2017 Chronic Diabetes mellitus with complications (3 sources) Type 2 diabetes mellitus with diabetic peripheral angiopathy without gangrene; Translations: [Type 2 diabetes mellitus with diabetic peripheral angiopathy without gangrene] Onset: 07-07-2023 Chronic External Injury - Fall (3 sources) Fall; Translations: [Unspecified fall, initial encounter] Onset: 09-11-2017 Heart valve disorders (1 source) Presence of prosthetic heart valve; Translations: [Presence of prosthetic heart valve] Onset: 07-07-2023 Chronic Other fractures (1 source) Multiple closed fractures of pelvis with disruption of pelvic [place] Episodic Superficial injury; contusion (3 sources) Contusion of right shoulder, initial encounter; Translations: [Contusion of right shoulder, initial encounter] Onset: 09-17-2023 Episodic Unclassified (3 sources) Patient encounter status; Translations: [Preop cardiovascular exam] Onset: 09-11-2017 09-11-2017 Unclassified (2 sources) History of mechanical aortic valve replacement; Translations: [H/O mechanical aortic valve replacement] Onset: 09-11-2017 09-11-2017 Unclassified (1 source) Unknown / UNK(Unknown) Onset: 08-18-2018 Past or Other Problems Problem Classification Problem Date Documented Da te Episodic/Chronic Coronary atherosclerosis and other heart disease (1 source) Presence of coronary angioplasty implant and graft; Translations: [Presence of coronary angioplasty implant and graft] Onset: 07-07-2023 Episodic Medical examination/evaluation (6 sources) Preoperative state; Translations: [Preop cardiovascular exam] Onset: 09-11-2017 09-11-2017 Episodic Other circulatory disease (7 sources) H/O cardiac surgery; Translations: [H/O mechanical aortic valve replacement] Onset: 09-11-2017 09-11-2017 Episodic Other fractures (14 sources) Fracture of pelvis; Translations: [Multiple closed fractures of pelvis with disruption of pelvic kalispel] Onset: 09-10-2017 09-10-2017 Episodic Other fractures (2 sources) Multiple fractures of pelvis with stable disruption of pelvic ring, initial encounter for closed fracture; Translations: [Multiple fractures of pelvis with stable disruption of pelvic ring, initial encounter for closed fracture] Onset: 09-28-2017 Episodic Other fractures (2 sources) Multiple fractures of pelvis with unstable disruption of pelvic ring, subsequent encounter for fracture with routine healing; Translations: [Multiple fractures of pelvis with unstable disruption of pelvic ring, subsequent encounter for fracture with routine healing] Onset: 09-28-2017 Episodic Results Test Name Value Interpretation Reference [facility] Vital Signs Date Time Vital Sign Value Performing Clinician Facility 08-18-2018 08:35-0400 BMI (Body Mass Index) 35.57 kg/m2 [facility] 08-18-2018 08:35-0400 Body Temperature 98.49 [degF] [facility] 08-18-2018 08:35-0400 Height 180.3 cm [facility] 08-18-2018 08:35-0400 Pulse (Heart Rate) 64 /min [facility] 08-18-2018 08:35-0400 Weight 115.67 kg [facility] 02-03-2018 08:59-0400 BMI (Body Mass Index) 35.57 kg/m2 [facility] 02-03-2018 08:59-0400 Body Temperature 98.2 [degF] [facility] 02-03-2018 08:59-0400 Height 180.3 cm [facility] 02-03-2018 08:59-0400 Pulse (Heart Rate) 62 /min [facility] 02-03-2018 08:59-0400 Weight 115.67 kg [facility] 11-11-2017 09:08-0500 BMI (Body Mass Index) 35.57 kg/m2 [facility] Work Phone: 11-11-2017 09:08-0500 Body Temperature 98.91 [degF] [facility] Work Phone: 11-11-2017 09:08-0500 Height 180.3 cm [facility] Work Phone: 11-11-2017 09:08-0500 Pulse (Heart Rate) 91 /min [facility] Work Phone: 11-11-2017 09:08-0500 Weight 115.67 kg [facility] Work Phone: 09-28-2017 08:38-0500 BMI (Body Mass Index) 35.57 kg/m2 [facility] Work Phone: 09-28-2017 08:38-0500 Body Temperature 97 [degF] [facility] Work Phone: 09-28-2017 08:38-0500 Height 180.3 cm [facility] Work Phone: 09-28-2017 08:38-0500 Pulse (Heart Rate) 88 /min [facility] Work Phone: 09-28-2017 08:38-0500 Weight 115.67 kg Kyle Queen [facility] Work Phone: 09-22-2017 11:39-0500 Body Temperature 97.9 [degF] Woodrow Farrar [facility] Work Phone: 09-22-2017 11:39-0500 BP Diastolic 63 mm[Hg] Woodrow Farrar [facility] Work Phone: 09-22-2017 11:39-0500 BP Systolic 106 mm[Hg] Woodrow Farrar [facility] Work Phone: 09-22-2017 11:39-0500 Pulse (Heart Rate) 79 /min Woodrow Farrar [facility] Work Phone: 09-22-2017 11:39-0500 Pulse Oximetry 93 % Woodrow Farrar [facility] Work Phone: 09-22-2017 11:39-0500 Respiratory Rate 18 /min Woodrow Farrar [facility] Work Phone: 09-15-2017 11:00-0500 BMI (Body Mass Index) 35.61 kg/m2 Woodrow Farrar [facility] Work Phone: 09-15-2017 11:00-0500 Weight 115.8 kg Woodrow Farrar [facility] Work Phone: 09-14-2017 11:04-0500 Height 180.3 cm Woodrow Farrar [facility] Work Phone: Encounters Encounter Date Encounter Type Care Provider Facility Start: 10-20-2023 End: 10-20-2023 [facility] Start: 10-20-2023 [facility] Start: 09-25-2023 End: 09-25-2023 ambulatory SADAF GRAHAM [facility] Start: 09-17-2023 End: 10-16-2023 ambulatory CAL A [facility] Start: 08-20-2023 End: 08-20-2023 ambulatory CAL A [facility] Start: 07-28-2023 End: 07-28-2023 Emergency department patient visit CHASE CHARLES [facility] Start: 07-07-2023 End: 07-07-2023 ambulatory CAL A [facility] Start: 06-25-2023 End: 06-25-2023 ambulatory [facility] Start: 04-23-2023 End: 04-23-2023 ambulatory CAL A [facility] Start: 03-12-2023 End: 03-12-2023 ambulatory CAL A BAH [facility] Start: 02-12-2023 End: 02-12-2023 ambulatory CLA A [facility] Start: 01-30-2023 End: 01-30-2023 ambulatory CAL A [facility] Start: 12-11-2022 End: 12-11-2022 ambulatory CAL A [facility] Start: 12-09-2022 End: 12-09-2022 ambulatory CAL A BAH [facility] Start: 12-19-2020 End: 12-19-2020 Orders Only Torie Crump Work Phone: [facility] Start: 08-18-2018 End: 08-19-2018 Patient encounter procedure MELQUIADES MARTI [facility] Start: 08-18-2018 End: 08-18-2018 Office outpatient visit 15 minutes Melquiades Marti Work Phone: [facility] Procedures Date Procedure Procedure Detail Performing Clinician Start: 08-18-2018 Follow-up visit Follow-up CAL MARCE MCWILLIAMS Start: 09-14-2017 End: 09-14-2017 PUBIC SYMPHYSIS OPEN REDUCTION INTERNAL FIXATION PELVIS PERCUTANEOUS PINNING SI JOINT Melquiades Marti Work Phone: Start: 09-11-2017 End: 09-11-2017 Echo [facility] r-t 2d w/wom-mode compl spec&colr d Adair Alvarado Work Phone: Plan of Treatment Date Care Activity Detail Author Start: 01-11-2023 Tetanus vaccination [facility] Start: 06-19-2020 Influenza vaccination given Sequential Influenza Vaccine (#1) [facility] Start: 08-18-2018 End: 08-18-2018 Ambulatory 08/18/2018 Office Visit Orthopedic Surgery Melquiades Marti MD [address] [address] [phone] [facility] Start: 06-19-2018 Influenza vaccination SEQUENTIAL INFLUENZA VACCINE (#1) [facility] Start: 02-03-2018 Ambulatory 02/03/2018 Office Visit Orthopedic Surgery Melquiades Marti MD [address] [address] [phone] [facility] Start: 12-23-2017 Ambulatory 12/23/2017 Office Visit Orthopedic Surgery Melquiades Marti MD [address] [address] [phone] [facility] Start: 11-11-2017 Ambulatory 11/11/2017 Office Visit Orthopedic Surgery Melquiades Marti MD [address] [address] [phone] [facility] Start: 09-28-2017 Ambulatory 09/28/2017 Office Visit Orthopedic Surgery Lorri Sibley PA-C [address] [address] [phone] [facility] Start: 06-19-2017 Influenza vaccination SEQUENTIAL INFLUENZA VACCINE (#1) [facility] Work Phone: Start: 2009 Administration of herpes zoster vaccine Zoster Vaccines (1 of 2) [facility] Start: 2009 Screening for malignant neoplasm of colon [facility] Start: 1977 Hepatitis C antibody, confirmatory test Hepatitis C Screening [facility] Start: 1975 COVID-19 Vaccine (1 of 2) COVID-19 Vaccine (1 of 2) [facility] Start: 1974 HIV screening HIV Screening [facility] Start: 1971 Adolescent depression screening assessment Depression Screening (PHQ9) [facility] Start: 1962 History and physical examination, annual for health maintenance Wellness Visit [facility] Start: 1959 Prostate specific antigen measurement PSA Level [facility] Start: 1959 HEPATITIS C SCREENING HEPATITIS C SCREENING [facility] Work Phone: Start: 1959 Screening colonoscopy COLONOSCOPY [facility] Work Phone: Start: 1959 Tetanus vaccination TETANUS EVERY 10 YR [facility] Work Phone: End: 09-10-2017 ED Fast Scan ED Fast Scan STAT One time imaging One time imaging for 1 Occurrences starting 09/10/2017 until 09/10/2017 [facility] Work Phone: ED Fast Scan ED Fast Scan STAT 09/10/2017 7:45 PM EST [facility] Work Phone: Payers Date Payer Category Payer Unknown 2017 Unknown [id number] 2017 Unknown COMMERCIAL COMME RCIAL MISCELLANEOUS [id number] 2017-Present [id number] 1959 Unknown [id number] 2.840.1.171679.3.579.2. 90 1959 Unknown [id number] 2.16840.1.986191.3.579.2. 903 1959 Unknown [id number] 2.840.1.020663.3.579.2. 903 1959 Unknown [id number] 2.16.840.1.715158.3.579.2. 903 1959 Unknown [id number] 2.16.840.1.674483.3.579.2. 1959 Unknown [id number] 2.16.840.1.078863.3.579.2. 1959 Unknown [id number] 2.16.840.1.380670.3.579.2. 1959 Unknown [id number] 2.16.840.1.536427.3.579.2. 1959 Unknown [id number] 2.16.840.1.041027.3.579.2. 1959 Unknown [id number] 2.840.1.052836.3.579.2. 1959 Unknown [id number] 2.16840.1.155006.3.579.2. 1959 Unknown [id number] 2.16840.1.132059.3.579.2. 1959 Unknown [id number] 2.840.1.050617.3.579.2. 1959 Unknown [id number] 2.840.1.747506.3.579.2. 1959 Unknown [id number] 2.16.840.1.667010.3.579.2. 1959 Unknown [id number] 2.16840.1.984906.3.579.2. 1959 Unknown [id number] 2.16.840.1.083493.3.579.2. 1959 Unknown [id number] 2.840.1.456663.3.579.2. 1959 Unknown [id number] 2.16.840.1.998417.3.579.2. 651 1959 Unknown [id number] 2.16.840.1.525325.3.579.2. 651 1959 Unknown [id number] 2.16.840.1.322635.3.579.2. 651 1959 Unknown [id number] 2.16.840.1.785281.3.579.2. 651 1959 Unknown [id number] 2.16.840.1.277804.3.579.2. Unknown [id number] 2.16.840.1.075715.3.249.13 Unknown [id number] Worker's Compensation [id number] Worker's Compensation [id number] Social History Date Type Detail Facility Start: 09-15-2017 Tobacco smoking stat [facility] Former smoker [facility] Work Phone: End: 02-08-2001 History of tobacco use Current smoker [facility] Work Phone: End: 02-08-2001 History of tobacco use Cigarette Smoker [facility] Work Phone: Sex Assigned At Not on file [facility] Work Phone: Start: 09-25-2017 Tobacco smoking stat [facility] Unknown if ever smoked [facility] Work Phone: Start: 09-15-2017 Tobacco use and exposure Former user [facility] Start: 09-15-2017 Alcohol intake Current non-dr hospital cook of alcohol (finding) [facility] Medical Equipment Procedure Code Equipment Code Equipment Origin al Text Equipment Identifier Dates Plate 3.5mm 6hl Pubic Symphysis Incl 2 Dcphl - [id number] Start: 09-14-2017 Screw 7.3 X 115m m Thai 32mm Thrd - [id number] Start: 09-14-2017 Screw 3.5 X 36mm Cortex Self-Tap - [id number] Start: 09-14-2017 Screw 3.5x38mm Cortex Self-Tap - [id number] Start: 09-14-2017 Screw 3.5 X 40mm Cortex Self-Tap - [id number] Start: 09-14-2017 Screw 3.5 X 32mm Cortex Self-Tap - [id number] Start: 09-14-2017 Screw 3.5 X 44mm Cortex Self-Tap - [id number] Start: 09-14-2017 Screw 3.5x34mm Cortex Self-Tap - [id number] Start: 09-14-2017 Screw 7.3 X 75mm Thai 32mm Thrd - [id number] Start: 09-14-2017 Washer 13mm - [id number] Start: 09-14-2017 Plate 3.5mm 6hl Pubic Symphysis Incl 2 Dcphl - [id number] Start: 09-14-2017 Screw 7.3 X 115m m Thai 32mm Thrd - [id number] Start: 09-14-2017 Screw 3.5 X 36mm Cortex Self-Tap - [id number] Start: 09-14-2017 Screw 3.5x38mm Cortex Self-Tap - [id number] Start: 09-14-2017 Screw 3.5 X 40mm Cortex Self-Tap - [id number] Start: 09-14-2017 Screw 3.5 X 32mm Cortex Self-Tap - [id number] Start: 09-14-2017 Screw 3.5 X 44mm Cortex Self-Tap - [id number] Start: 09-14-2017 Screw 3.5x34mm Cortex Self-Tap - [id number] Start: 09-14-2017 Screw 7.3 X 75mm Thai 32mm Thrd - [id number] Start: 09-14-2017 Washer 13mm - [id number] Start: 09-14-2017 Plate 3.5mm 6hl Pubic Symphysis Incl 2 Dcphl - [id number] Start: 09-14-2017 Screw 7.3 X 115m m Thai 32mm Thrd - [id number] Start: 09-14-2017 Screw 3.5 X 36mm Cortex Self-Tap - [id number] Start: 09-14-2017 Screw 3.5x38mm Cortex Self-Tap - [id number] Start: 09-14-2017 Screw 3.5 X 40mm Cortex Self-Tap - [id number] Start: 09-14-2017 Screw 3.5 X 32mm Cortex Self-Tap - [id number] Start: 09-14-2017 Screw 3.5 X 44mm Cortex Self-Tap - [id number] Start: 09-14-2017 Screw 3.5x34mm Cortex Self-Tap - [id number] Start: 09-14-2017 Screw 7.3 X 75mm Thai 32mm Thrd - [id number] Start: 09-14-2017 Washer 13mm - [id number] Start: 09-14-2017 Plate 3.5mm 6hl Pubic Symphysis Incl 2 Dcphl - [id number] Start: 09-14-2017 Screw 7.3 X 115m m Thai 32mm Thrd - [id number] Start: 09-14-2017 Screw 3.5 X 36mm Cortex Self-Tap - [id number] Start: 09-14-2017 Screw 3.5x38mm Cortex Self-Tap - [id number] Start: 09-14-2017 Screw 3.5 X 40mm Cortex Self-Tap - [id number] Start: 09-14-2017 Screw 3.5 X 32mm Cortex Self-Tap - [id number] Start: 09-14-2017 Screw 3.5 X 44mm Cortex Self-Tap - [id number] Start: 09-14-2017 Screw 3.5x34mm Cortex Self-Tap - [id number] Start: 09-14-2017 Screw 7.3 X 75mm Thai 32mm Thrd - [id number] Start: 09-14-2017 Washer 13mm - [id number] Start: 09-14-2017 Plate 3.5mm 6hl Pubic Symphysis Incl 2 Dcphl - [id number] Start: 09-14-2017 Screw 7.3 X 115m m Thai 32mm Thrd - [id number] Start: 09-14-2017 Screw 3.5 X 36mm Cortex Self-Tap - [id number] Start: 09-14-2017 Screw 3.5x38mm Cortex Self-Tap - [id number] Start: 09-14-2017 Screw 3.5 X 40mm Cortex Self-Tap - [id number] Start: 09-14-2017 Screw 3.5 X 32mm Cortex Self-Tap - [id number] Start: 09-14-2017 Screw 3.5 X 44mm Cortex Self-Tap - [id number] Start: 09-14-2017 Screw 3.5x34mm Cortex Self-Tap - [id number] Start: 09-14-2017 Screw 7.3 X 75mm Thai 32mm Thrd - [id number] Start: 09-14-2017 Washer 13mm - [id number] Start: 09-14-2017 Plate 3.5mm 6hl Pubic Symphysis Incl 2 Dcphl - [id number] Start: 09-14-2017 Screw 7.3 X 115m m Thai 32mm Thrd - [id number] Start: 09-14-2017 Screw 3.5 X 36mm Cortex Self-Tap - [id number] Start: 09-14-2017 Screw 3.5x38mm Cortex Self-Tap - [id number] Start: 09-14-2017 Screw 3.5 X 40mm Cortex Self-Tap - [id number] Start: 09-14-2017 Screw 3.5 X 32mm Cortex Self-Tap - [id number] Start: 09-14-2017 Screw 3.5 X 44mm Cortex Self-Tap - [id number] Start: 09-14-2017 Screw 3.5x34mm Cortex Self-Tap - [id number] Start: 09-14-2017 Screw 7.3 X 75mm Thai 32mm Thrd - [id number] Start: 09-14-2017 Washer 13mm - [id number] Start: 09-14-2017 Plate 3.5mm 6hl Pubic Symphysis Incl 2 Dcphl - [id number] Start: 09-14-2017 Screw 7.3 X 115m m Thai 32mm Thrd - [id number] Start: 09-14-2017 Screw 3.5 X 36mm Cortex Self-Tap - [id number] Start: 09-14-2017 Screw 3.5x38mm Cortex Self-Tap - [id number] Start: 09-14-2017 Screw 3.5 X 40mm Cortex Self-Tap - [id number] Start: 09-14-2017 Screw 3.5 X 32mm Cortex Self-Tap - [id number] Start: 09-14-2017 Screw 3.5 X 44mm Cortex Self-Tap - [id number] Start: 09-14-2017 Screw 3.5x34mm Cortex Self-Tap - [id number] Start: 09-14-2017 Screw 7.3 X 75mm Thai 32mm Thrd - [id number] Start: 09-14-2017 Washer 13mm - [id number] Start: 09-14-2017 Plate 3.5mm 6hl Pubic Symphysis Incl 2 Dcphl - [id number] Start: 09-14-2017 Screw 7.3 X 115m m Thai 32mm Thrd - [id number] Start: 09-14-2017 Screw 3.5 X 36mm Cortex Self-Tap - [id number] Start: 09-14-2017 Screw 3.5x38mm Cortex Self-Tap - [id number] Start: 09-14-2017 Screw 3.5 X 40mm Cortex Self-Tap - [id number] Start: 09-14-2017 Screw 3.5 X 32mm Cortex Self-Tap - [id number] Start: 09-14-2017 Screw 3.5 X 44mm Cortex Self-Tap - [id number] Start: 09-14-2017 Screw 3.5x34mm Cortex Self-Tap - [id number] Start: 09-14-2017 Screw 7.3 X 75mm Thai 32mm Thrd - [id number] Start: 09-14-2017 Washer 13mm - [id number] Start: 09-14-2017 Plate 3.5mm 6hl Pubic Symphysis Incl 2 Dcphl - [id number] Start: 09-14-2017 Screw 7.3 X 115m m Thai 32mm Thrd - [id number] Start: 09-14-2017 Screw 3.5 X 36mm Cortex Self-Tap - [id number] Start: 09-14-2017 Screw 3.5x38mm Cortex Self-Tap - [id number] Start: 09-14-2017 Screw 3.5 X 40mm Cortex Self-Tap - [id number] Start: 09-14-2017 Screw 3.5 X 32mm Cortex Self-Tap - [id number] Start: 09-14-2017 Screw 3.5 X 44mm Cortex Self-Tap - [id number] Start: 09-14-2017 Screw 3.5x34mm Cortex Self-Tap - [id number] Start: 09-14-2017 Screw 7.3 X 75mm Thai 32mm Thrd - [id number] Start: 09-14-2017 Washer 13mm - [id number] Start: 09-14-2017 Assessments Diagnosis Multiple closed fractures of pelvis with unstable disruption of pelvic ring with routine healing, subsequent encounter - Primary Diagnosis Multiple fractures of pelvis with unstable disruption of pelvic kalispel with routine healing Diagnosis Multiple fractures of pelvis with unstable disruption of pelvic kalispel with routine healing Diagnosis Multiple closed fractures of pelvis with unstable disruption of pelvic ring with routine healing, subsequent encounter - Primary Diagnosis Multiple fractures of pelvis with stable disruption of pelvic ring, initial encounter for closed fracture (HCC) Diagnosis Multiple closed fractures of pelvis with unstable disruption of pelvic ring with routine healing, subsequent encounter - Primary Diagnosis Fall, initial encounter - Pr imary Pelvis fracture ([facility]) Unspecified closed fracture of pelvis Coronary artery disease invo lving mcgrath coronary artery of mcgrath heart without angina pectoris H/O mechanical aortic valve replacement PAF (paroxysmal atrial fibri llation) ([facility]) Atrial fibrillation Preop cardiovascular exam Pre-operative cardiovascular examination History of pacemaker Diagnosis Multiple closed fractures of pelvis with unstable disruption of pelvic ring with routine healing, subsequent encounter - Primary Advance Directives No Advanced Directives Records FoundDocuments on File Type Date Recorded Patient Cold Rolling Coordinator Expl anation Power of Web Designer 11/11/2017 9:10 AM Latest Code Status on File Code Status Date Activated Date Inactivated Comments Full Code - Unverified 09/10/2017 11:11 PM 09/22/2017 3 :00 PM Discharge Instructions * Huang Gutierrez CNP - 09/22/2017 Formatting of this note may be different from the original. MECHANISM OF INJURY: Fall LOC (yes/no?): No Anticoagulant / Anti-platelet Rx? (for what dx?): Coumadin, mechanical aortic valve (2000, [facility]) INJURIES: 1. Pelvic ring fracture involving bilateral SI joints and widened pubic symphysis 2. Fracture posterior left ilium and right superior pubic ramus 3. Right posterior 5-6th ribs 4. Small occult PTX on the right ACTIVE MEDICAL PROBLEMS: 1. Artificial Aortic Valve 2. DM non-insulin dependant 3. HLD 4. Depression INCIDENTAL FINDINGS: 1. None SURGERIES/PROCEDURES: Date Operation/Procedure Provider Name 09/14/17 ORIF pubic symphysis with percutaneous pinning of SI joints Dr. Marti During your hospitalization it was noted on your x-rays you had the incidental finding listed above. An incidental finding is disease or condition found that is unrelated to your present injury or illness, but was found during your hospitalization. You will need to follow up with your family / primary care provider for monitoring and further testing as soon as possible. PROCEDURES Procedure(s): PUBIC SYMPHYSIS OPEN REDUCTION INTERNAL FIXATION PELVIS PERCUTANEOUS PINNING SI JOINT TRAUMA CARE QUESTIONS / FOLLOW UP CARE A follow-up appointment may be scheduled for you before you are discharged. If not, please contact the office at your earliest convenience to schedule your follow up appointment. Bring your medications and pill bottles with you to your first visit. Outpatient Trauma and Acute Care Surgery Office: [address] 7th Floor, [address] [place] [address] Hours: Thursday-Thursday, 8am to 4pm. If you need to speak with the trauma/surgery team after hours, please call and ask to speak with the Trauma Nurse Practitioner camera person. Parking: You may park in the Green Garage, which is attached to the front of the hospital. From within the garage, take the C elevators up to the 7th Floor. The office is in [address]. Investment Manager: If you choose crushed stone grader parking, please do so at the Main Hospital entrance. Go up to the secondfloor. Follow signs for the [facility]. [place] across the bridge, take the elevators to your right up to the 7th floor. You may also enter from the [facility] entrance, located at the corner of [facility]. You may also enter from the [facility] entrance, located at the corner of [facility]. Take the D elevators up to the 7th Floor. Use this entrance if you are arriving by ambulance or wheelchair van. Garage or Investment Manager parking is free with a voucher, which you will receive at your appointment. PRIMARY CARE PHYSICIAN FOLLOW UP Call and schedule a post Trauma follow up appointment with your primary care provider. If you need assistance with obtaining a primary care physician please call: [phone] MANAGING YOUR PAIN AT HOME Pain is your body's way of warning you that something is wrong. Pain feels different for everybody.Only you can describe your pain. A provider can suggest or prescribe many types of medicines for pain. These range from nonprescription medicines like acetaminophen (Tylenol) to powerful medicines called opiates. Opiates work well to relieve pain, but they also can cause problems, especially if they are taken too often or in too large a dose. They can interact with other medicines, or they may make it hard for you to do your job or to think clearly. They can even cause . For these reasons, providers are very careful about how they prescribe opiates. It has been carefully considered what pain medicine is right for you. You may not have received opiate pain medicine if there are concerns about drug interactions or your safety. It is best to have one prescriber (doctor/provider) or clinic treat your pain. This way you will get the pain medicine that will help you the most, and monitoring for any problems that the medicine might cause. Follow-up care is a wiley part of your treatment and safety. Be sure to make and go to all appointments, and call the number provided if you are having problems. It's also a good idea to know your testresults and keep a list of your medicines. How can you care for yourself at home? ? Try other ways to reduce pain: ? Relax, and reduce stress. Relaxation techniques such as deep breathing or meditation can help. ? Keep moving. Gentle, daily exercise can help reduce pain over the long run. Try low- or no-impactexercises such as walking, swimming, and stationary biking. Do stretches to stay flexible. ? Try heat, cold packs, and massage. ? Get enough sleep. Pain can make you tired and drain your energy. Talk with your doctor if you have trouble sleeping because of pain. ? Think positive. Your thoughts can affect your pain level. Do things that you enjoy to distract yourself when you have pain instead of focusing on the pain. See a movie, read a book, listen to music, or spend time with a friend. Prescription Pain Medications: ? The prescription provided should be enough to get you through until your follow up appointment with the Outpatient Trauma office or specialty service. ? DO NOT take more than prescribed. ? Refills on opiate pain medications can only be filled in person. ? Over time, you should be able to take less medications as your injuries heal. ? Take an over the counter stool softener daily with the pain medicine to prevent the development of constipation. ? Also drink plenty of water and eat foods high in fiber. If you are not taking a prescription pain medicine, take an fdwy-zwc-gashglo medicine as directed such as Tylenol (Acetaminophen) or Motrin (Ibuprofen). When should you call for help? Call your doctor now or seek immediate medical care if: ? You have a new kind of pain. ? You have new symptoms, such as a fever or rash, along with the pain. ? You think you might be using too much pain medicine. ? You need help to use less or stop taking pain medicine. ? Your pain gets worse. ? You would like a referral to a doctor or clinic that specializes in pain management. Pelvic Fracture Home Care Instructions The pelvis is the ring of bones between your hips. It connects to the spine and to the leg bones atthe hip joints. Blood vessels, nerves, and muscles run through the pelvic ring and can be affected by a break/fracture. A Broken/ fractured pelvis may need a few months to heal. After the operation, it is important to follow your Surgeon's instructions. Although you may feel better in just a few days, It is important to remember that your body needs time to rest and heal. Strict compliance of your home care instruction is imperative to achieving the most optimal outcome for the healing of your injury. Activity Weight bearing status: 1. Left and right lower extremities: No weight bearing on your left and right legs. May stand on you left leg for transfers only. Wound Care Do not remove your wrap or dressing. This will be done by your surgeon at your office follow up visit. Some drainage can be expected. However, if your dressing should become wet, soiled or saturated with drainage, please call Dr. Marti's office. Do not use Any soaps, creams, ointment or lotions on or around your incision/surgery site. Do not get your incision wet. Keep the incision clean and dry until your office follow up visit. If you have any stiches or kay in place upon discharge from the hospital, they will be removed at your post op visit. Medications & Managing your pain Take all medications as directed Take pain medicine before your pain becomes severe so you can have better pain relief. For 2 or 3 days, it may help to take pain medicine as often as ordered to keep your pain under better control. Then begin to take less medicine each day until no longer needed. Do not drive, operate heavy machinery, ride motorcycles or ATblogTV's, drink alcohol, or take other medications that make you tired or sleepy while you are taking narcotic pain medications Do not do any dangerous activities while taking pain medicines. They may decrease your ability to make safe decisions. Do not take pain medications on an empty stomach. This may lead to nausea and vomiting. You may use ice to aid in reducing swelling. Apply ice to the affected area for 15-20 minutes everyhour as needed. Be sure to wrap the ice in a towel before applying to protect skin. PAIN MEDICINES OFTEN CAUSE CONSTIPATION. Unless contradicted by other medical issues, Try an over-the counter stool softener such as miralaxor mag citrate, drink at least 6 - 8 glasses of water a day and eat high fiber foods such as fruitsand vegetables. If you have done all of these things and still become constipated, or if any are contradicted by other medical conditions, talk to your doctor. *Call your doctor now or seek immediate medical care if: You have increased or severe pain. Your leg or foot is cool, pale, or changes color. You have tingling, weakness, or numbness in your foot and toes. You cannot move your toes. You have signs of a blood clot, such as: Pain in your calf, back of the knee, thigh, or groin. Redness and swelling in your leg or groin You have blood in your urine. You have trouble urinating. Your stools are black and tarlike or have streaks of blood. *Call 911 if you have sudden chest pain and shortness of breath Your initial post operative follow up appointment in our office will be with our Physician Marketing Communications Coordinator who works in coordination with Dr. Marti. Your Ortho Trauma follow up appointment date & time Lorri Sibley PA-C September 28, 2017 at 10:15 If you do not have a primary care physician please call [facility] Physician Referral Line [phone] for assistance. Per physicians, radiology and clinical staff request, all patients being transported from an outlying facility (assisted living, alf, rehab, ect.) that have a non-weight bearing status oftheir lower extremity or extremities should be transported by and present to their office appointment via cart/stretcher, NOT by wheelchair, unless the patient is able to ambulate with a walker or crutches independently and assist in their transfer. This is solely for the safety of our patients andour staff. Thank you in advance for your cooperation, Orth[facility] Tra[facility] MANAGING YOUR PAIN AT HOME Pain is your body's way of warning you that something is wrong. Pain feels different for everybody.Only you can describe your pain. A provider can suggest or prescribe many types of medicines for pain. These range from nonprescription medicines like acetaminophen (Tylenol) to powerful medicines called opiates. Opiates work well to relieve pain, but they also can cause problems, especially if they are taken too often or in too large a dose. They can interact with other medicines, or they may make it hard for you to do your job or to think clearly. They can even cause . For these reasons, providers are very careful about how they prescribe opiates. It has been carefully considered what pain medicine is right for you. You may not have received opiate pain medicine if there are concerns about drug interactions or your safety. It is best to have one prescriber (doctor/provider) or clinic treat your pain. This way you will get the pain medicine that will help you the most, and monitoring for any problems that the medicine might cause. Follow-up care is a wiley part of your treatment and safety. Be sure to make and go to all appointments, and call the number provided if you are having problems. It's also a good idea to know your testresults and keep a list of your medicines. How can you care for yourself at home? ? Try other ways to reduce pain: ? Relax, and reduce stress. Relaxation techniques such as deep breathing or meditation can help. ? Keep moving. Gentle, daily exercise can help reduce pain over the long run. Try low- or no-impactexercises such as walking, swimming, and stationary biking. Do stretches to stay flexible. ? Try heat, cold packs, and massage. ? Get enough sleep. Pain can make you tired and drain your energy. Talk with your doctor if you have trouble sleeping because of pain. ? Think positive. Your thoughts can affect your pain level. Do things that you enjoy to distract yourself when you have pain instead of focusing on the pain. See a movie, read a book, listen to music, or spend time with a friend. Prescription Pain Medications: ? The prescription provided should be enough to get you through until your follow up appointment with the Outpatient Trauma office or specialty service. ? DO NOT take more than prescribed. ? Refills on opiate pain medications can only be filled in person. ? Over time, you should be able to take less medications as your injuries heal. ? Take an over the counter stool softener daily with the pain medicine to prevent the development of constipation. ? Also drink plenty of water and eat foods high in fiber. If you are not taking a prescription pain medicine, take an hwqj-hjn-jncjhzn medicine as directed such as Tylenol (Acetaminophen) or Motrin (Ibuprofen). When should you call for help? Call your doctor now or seek immediate medical care if: ? You have a new kind of pain. ? You have new symptoms, such as a fever or rash, along with the pain. ? You think you might be using too much pain medicine. ? You need help to use less or stop taking pain medicine. ? Your pain gets worse. You would like a referral to a doctor or clinic that specializes in pain management. RIB FRACTURES You have rib fractures or broken ribs. It will take about 6 to 8 weeks for your ribs to heal completely. To Help The Ribs Heal: ? Rest is the most important part of healing. ? Avoid strenuous activities ? Light activity such as walking will help the ribs heal and reduce your risk of complications. ? When the pain decreases, begin normal slow movements of your body. ? Avoid bumping the rib area as you move. To Decrease Discomfort / Pain ? Support or brace your ribs with your hands or a pillow when taking deep breaths, coughing or withactivity. ? Take your pain medications as prescribed. To Prevent Pneumonia Continue deep breathing exercises at least 10 times every hour while you are awake. Use the breathing tool, incentive spirometer , which you received while in the hospital. This will help the lung continue to heal and prevent infection. How to use an Incentive Spirometer: ? Sit up and hold the incentive spirometer. ? Place the mouthpiece in your mouth. Make sure you make a good seal with your lips. ? Breathe out (exhale) normally. ? Breathe in (inhale) SLOWLY. ? A piece of the incentive spirometer will rise as you inhale. ? Try to get this piece to rise as high as you can. ? Your provider will place a marker next to your goal prior to discharge. This tells you how big ofa breath you should take. ? A smaller piece in the incentive spirometer looks like a ball or disc. ? Your goal should be to make this ball stays in the middle of the chamber. ? If you breathe too fast, the ball will shoot to the top. ? If you breathe too slowly, the ball will stay at the bottom. ? Hold your breath for 3 to 5 seconds, before you exhale. ? Take 10 to 15 breaths using the spirometer every hour, while you are awake. Call the Outpatient Trauma office if you develop: ? A fever greater than 101 and/or cough Call 911 or go to the nearest emergency department if you develop chest pain or have difficulty breathing. in this encounter Summary Purpose Family History No Family History Records FoundNo Family History Records FoundNo Family History Records FoundNo Family History Records FoundNo Family History Records FoundNo Family History Records Found History of Present Illness * Melquiades Marti MD - 08/23/2018 7:32 AM EST This 58-year-old gentleman is approximately 1 year status post open reduction and internal fixationof a pelvic ring injury. His surgery was done on September 14, 2017. As part of that initial injury complex he developed a left peroneal nerve injury. He has had an EMG done which confirms this injury. He was initially prescribed an AFO, but is not currently using it if he feels that it does not help him. Today on examination the patient is able to walk with minimal to no limp. He does not have a Trendelenburg sign. His pelvis is stable and his legs are grossly of equal length. He has grade 4/5 strength in the left ankle dorsiflexors and EHL. Radiographs were obtained today which are dictated by myself under separate cover. I did request inview these films in the office for this visit. They show a nicely reconstructed pelvic ring injury.He has sacroiliac screws over bilateral SI joints as well as pubic symphysis plate. The alignment is anatomic and there are no hardware-related complications. Think the patient is actually doing quite well and he agrees. I think at this point he can follow-up on an as-needed basis. He is not having real issues ambulating with his left ankle and feels that he is gradually improving. At this point there would be no indication for a tendon transfer. in this encounter Additional Source Comments Transfer Center Note - Rena Wagoner RN - 09/10/2017 3:28 PM ESTSign Off Note - Elizabeth Braun CNP - 09/17/2017 10:52 AM ESTOp Note - Melquiades Marti MD - 09/14/2017 3:14 PM EST Miscellaneous Notes (unrecog nized section and content) Narrative:Referral from [facility]. Patient was replacing shingles today when he fell off his roof approximately 12 feet. Positive LOC. Patient currently alert and oriented. Patient has a binder on. Abrasion to back of his head that has a pressure bandage on. PMH: valve replacement, pacer, cabg, diabetes, htn, depression. Allergies: none. Patient has bilateral #18 gauge IV's. Medications given: fluids, dilaudid 1 mg, pentyl 100 mg, Zofran 4 mg. Patient is on Coumadin and ASA regularly. Oxygenation: 151/90, 100, 94% RA Labs: INR 1.94, glucose 226. Radiology: ekg - paced rhythm, ct - minimal ab bleeding, open pelvic fracture in this encounter Formatting of this note may be different from the original. Cardiology Sign-Off Discharge Medications: Continue current cardiac medications at current doses, unlimited duration. Lovenox 1 mg/kg BID until INR is 2 Follow-up Imaging, Testing: Patient will follow up with [facility] Follow-up Appointments: The patient was instructed to contact their non- [facility] cardiovascular provider to arrange followup. Additional Instructions Reviewed with Patient and/or Family: Compliance with follow-up. Compliance with medications. He will need outpatient CT of chest due to aortic dilatation. He will follow up with primary marine driller for upgrade of pacemaker to biventricular device Cardiology Progress Note Assessment/Plan: Cardiovascular and Mediastinum Coronary artery disease involving mcgrath coronary artery of mcgrath heart without angina pectoris Assessment & Plan History of GRACIE to OM1 in 2013. He follows with cardiology at [facility] and was last seen in May 2017. At that time he had no complaints of angina. Per notes, he has been unable to tolerate statins previously. --No statin due to previous intolerance. Consider alternate therapy as an outpatient. --Continue ASA H/O mechanical aortic valve replacement Assessment & Plan AVR in 2000 with [employer] mechanical valve #29. 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 --Agree with lovenox 1 mg/kg BID, continue until INR reaches 2. Warfarin has been resumed, pharmacy managing. --Echo completed this admission shows mild LV dysfunction with an apical WMA, stable from prior and well-seated mechanical aortic valve replacement with stable gradients. He has moderate to severe septal hypertrophy without LVOT obstruction. --Recommend f/u CT for aortic root dilation as outpatient --He is going to follow up with cardiology at [facility] where he has previously established. PAF (paroxysmal atrial fibrillation) (HCC) Assessment & Plan By history he has a dual chamber pacemaker. Last remote device check on 08/15/17 through [facility] showed multiple short bursts of PAF 5-6 seconds in duration. Device check yesterday post surgery shows no bursts of PAF since August 15, 2017. On warfarin due to mechanical aortic valve. Other History of pacemaker Assessment & Plan Dual chamber pacemaker in place. He has consistently been A sensed, V paced on telemetry. Echocardiogram this admission shows EF 45% with abnormal septal wall motion secondary to pacemaker. --Device checked today. Attempted to extend AV delay to decrease the amount of ventricular pacing, however patient did not have any intrinsic ventricular response. Device settings left unchanged. --Would upgrade to BIV pacemaker as an outpatient at a later date due to high incidence of ventricular pacing and septal wall motion abnormality with decreasing EF. CC: fall Subjective: Mr. Khoury denies chest pain, dyspnea, palpitations or dizziness Objective: Vital signs in last 24 hours: Temp: [97.9 ?F (36.6 ?C)-99 ?F (37.2 ?C)] 97.9 ?F (36.6 ?C) Heart Rate: [74-93] 77 Resp: [13-26] 16 BP: (105-139)/(46-107) 119/67 Intake/Output last 3 shifts: I/O last 3 completed shifts: In: 240 [P.O.:240] Out: 800 [Urine:800] Intake/Output this shift: I/O this shift: In: - Out: 600 [Urine:600] Review of Systems: All systems were reviewed and otherwise negative except for that noted above. Physical Exam: Neck: No JVD. Heart:: Regular Rhythm. Normal Intensity S1 and S2. No murmurs. Mechanical click Lungs: Clear to auscultation. Good air movement. No crackles noted. Extremities: Extremities are warm. + trace peripheral edema is noted. Adequate peripheral pulses. Otherwise alert and oriented X3 in no acute distress. Head is normocephalic. No epistaxis noted. Abdomen is soft, nontender without any masses noted. No significant muscular atrophy. Normal skin turgor. Telemetry: No events noted. and a sensed, v paced Cardiographics: I independently reviewed and noted above. Imaging: Reviewed independently and noted above. Lab Review Results from last 7 days Lab Units 09/11/17 1752 TROPONIN T ng/mL <0.010 Results from last 7 days Lab Units 09/17/17 0655 SODIUM mmol/L 132* POTASSIUM mmol/L 4.5 CHLORIDE mmol/L 93* BUN mg/dL 37* CREATININE mg/dL 1.02 GLUCOSE mg/dL 185* CALCIUM mg/dL 8.5 Results from last 7 days Lab Units 09/17/17 0655 WBC K/mcL 8.32 HGB g/dL 9.3* HCT % 27.0* PLT K/mcL 253 Formatting of this note may be different from the original. Central [facility] Utilization Review Notes EMERGENCY TEMPLATE HISTORY OF PRESENT ILLNESS:57 y/o male presents w/ CC of fall. Pt fell off two story roof while shingling, hitting first foyer roof on way down. Pt originally seen at [facility], transfered here. Arrives with pelvic binder in place. Pt on Coumadin for aortic valve replacement. INR 1.9, Hgb 14. OSH scans show open pelvic fx, CXR - displaced right posterior 5th-6th rib fx, left subclavian pacer. CT head/neck, T/L, and C/A/P negative and reviewed by our local radiologist in the trauma bay. VITAL SIGNS: 09/14/17 0945 -- 69 17 130/64 94 -- -- 09/14/17 0853 -- -- -- -- 96 Nasal cannula 2 09/14/17 0740 97.9 (36.6) 73 17 138/80 98 -- -- 09/14/17 0600 -- -- -- -- -- Nasal cannula 2 09/14/17 0540 -- 70 13 117/73 99 -- -- 09/14/17 0418 98.2 (36.8) 71 13 108/54 96 Nasal cannula 2 09/14/17 0400 -- -- -- -- -- Nasal cannula 2 09/16/17 0800 -- 80 16 120/70 95 -- -- 09/16/17 0737 -- -- -- -- -- Nasal cannula 2 09/16/17 0700 -- 83 15 122/69 93 -- -- 09/16/17 0600 -- 85 15 156/69 94 Nasal cannula 2 09/16/17 0500 -- 78 18 118/85 97 -- -- 09/16/17 0400 98.6 (37) 83 20 121/110 94 Nasal cannula 2 09/16/17 0300 -- 85 17 134/77 99 -- -- 09/16/17 0200 -- 81 19 107/88 98 Nasal cannula 2 EKG: WEIGHT: 115.8 kg LABS: (Abnormal / Relevant): 09/14: RBC 3.39 (L) M/mcL Hemoglobin 10.5 (L) g/dL Hematocrit 30.0 (L) % 09/16 RBC 3.00 (L) M/mcL Hemoglobin 9.2 (L) g/dL Hematocrit 26.9 (L) % 09/14: Sodium 132 (L) mmol/L Potassium 4.4 mmol/L Chloride 94 (L) mmol/L Bicarbonate 25 mmol/L Anion Gap 17 mmol/L Glucose 190 (H) mg/dL BUN 32 (H) mg/dL Creatinine 1.05 mg/dL eGFR 78 mL/min/1.73 m2 BUN/Creatinine Ratio 30.5 (H) Calcium 8.6 mg/dL Narrative: 09/16: Sodium 129 (L) mmol/L Potassium 4.7 mmol/L Chloride 93 (L) mmol/L Bicarbonate 26 mmol/L Anion Gap 15 mmol/L Glucose 180 (H) mg/dL BUN 30 (H) mg/dL Creatinine 0.92 mg/dL eGFR 91 mL/min/1.73 m2 BUN/Creatinine Ratio 32.6 (H) Calcium 8.3 (L) mg/dL GLUCOSE: 090-125-883-190 09/16 : PT 15.8- INR 1.3 IMAGING: (Abnormal / Relevant): XRAY PELVIS: 09/14: Fixation screws across bilateral sacroiliac joints with fixation hardware across the pubic symphysis. Near anatomic alignment. Hardware appears intact and no abnormal lucency surrounding the hardware XRAY PELVIS: 09/10 1. Diastasis of the pubic symphysis, measuring 24 mm. 2. Diastasis of the bilateral sacroiliac joints, right greater than left. 3. Fracture of the left ischium, better appreciated on the previous CT. 4. Nondisplaced fracture of the right superior pubic ramus CHEST XRAY: Small right apical pneumothorax. Right-sided rib fractures. Low lung volumes and right basilar atelectasis. ED TX: Fentanyl iv x1,DILAUDID IV X1 DX: FALL- PELVIS FX ASSESSMENT / PLAN: ORTHO NOTE: 09/16: Plan: - Labs reviewed Hgb 9.2 - Weight bearing NWB, RLE and LLE, may stand on LLE for transfers only - PT/OT - Dressing in place and c/d/i - VTE prophylaxis - D/C plan: pending therapies ################################################################################ ##### #### TRAUMA NOTE: 09/15: POD#1. Aggressive pulmonary hygiene, incentive spirometry. Wean supplemental oxygen as tolerated for acceptable oxygen saturation. Resume anticoagulation today for mechanical heart valve. Weight-based lovenox and coumadin. Acute blood loss anemia, asymptomatic and stable: no need for transfusion at this point. Diabetes with Stress hyperglycemia: supplemental insulin as needed to maintain serum glucose <180. Restart home meds. ################################################################################ ##### ## CARDIOLOGY NOTE: 09/14: Assessment/Plan: Cardiovascular and Mediastinum Coronary artery disease involving mcgrath coronary artery of mcgrath heart without angina pectoris Assessment & Plan History of GRACIE to OM1 in 2013. He reports exertional chest discomfort prior to intervention. He follows with cardiology at [facility] and was last seen in May 2017. At that time he had no complaints of angina. Per notes, he has been unable to tolerate statins previously. --Resume ASA if ok with surgical team --No statin due to previous intolerance. Consider alternate therapy as an outpatient. H/O mechanical aortic valve replacement Assessment & Plan In 2000 with [employer] mechanical valve #29. 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 --warfarin on hold. Agree with IV heparin drip and resume heparin drip post-operatively when safe from a surgical standpoint --Echo completed this admission shows mild LV dysfunction with an apical WMA, stable from prior and well-seated mechanical aortic valve replacement with stable gradients. He has moderate to severe septal hypertrophy without LVOT obstruction PAF (paroxysmal atrial fibrillation) ([facility]) Assessment & Plan By history. He has a dual chamber pacemaker in place for sick sinus syndrome. Last remote device check on 08/15/17 through [facility] showed multiple short bursts of PAF 5-6 seconds in duration. --He is already anticoagulated due to mechanical aortic valve --Brief, self-limiting episodes. No indication to add anti-arrhythmic therapy at this time. Sick sinus syndrome ([facility]) Assessment & Plan Dual chamber pacemaker in place. He has consistently been A sensed, v paced on telemetry. Echocardiogram this admission shows EF 45% with abnormal septal wall motion secondary to pacemaker. --Would consider upgrade to BIV pacemaker as an outpatient at a later date due to high percentage of ventricular pacing. Other Preop cardiovascular exam Assessment & Plan S/P mechanical fall from ladder. Anticipating open reduction and plate fixation of the pubic symphysis and percutaneous fixation of the sacroiliac joints on Thursday. He has METS > 4 and no symptoms of angina. He denies any limitations on activity level. He denies any episodes of chest discomfort, dyspnea, palpitations ORTHO TRAUMA OP NOTE: 09/14: Preoperative Diagnosis: Multiple closed fractures of pelvis with unstable disruption of pelvic ring, initial encounter ([facility]) [S32.818P] Postoperative Diagnosis: Same Procedure: Open reduction and internal fixation of pubic symphysis (CPT 94858) Percutaneous screw fixation right sacroiliac joint (CPT 15765) Percutaneous screw fixation left sacroiliac joint (CPT 79825) ################################################################################ ##### ##################################### TRAUMA NOTE: 09/12: MECHANISM OF INJURY: Fall LOC (yes/no?): No Anticoagulant / Anti-platelet Rx? (for what dx?): INJURIES: 1. Pelvic ring fracture involving bilateral SI joints and widened pubic symphysis. 2. Fracture posterior left ilium and right superior pubic ramus 3. Right posterior 5-6th ribs 4. Small occult PTX on the right ACTIVE MEDICAL PROBLEMS: 1. Artificial Aortic Valve 2. DM non-insulin dependant 3. HLD 4. Depression INCIDENTAL FINDINGS: 1. None ################################################################################ ##### ######### ORTHO TRAUMA NOTE: 09/12: Plan: - Labs reviewed - Weight bearing NWB, RLE and LLE - OR Thursday -consent signed ################################################################################ ##### ######## CARDIO NOTE: 11/24: Cardiovascular and Mediastinum Coronary artery disease involving mcgrath coronary artery of mcgrath heart without angina pectoris Assessment & Plan History of GRACIE to OM1 in 2013. He reports exertional chest discomfort prior to intervention. He follows with cardiology at [facility] and was last seen in May 2017. At that time he had no complaints of angina. Per notes, he has been unable to tolerate statins previously. --Resume ASA if ok with surgical team --No statin due to previous intolerance. Consider alternate therapy as an outpatient. H/O mechanical aortic valve replacement Assessment & Plan In 2000 with [employer] mechanical valve #29. 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 --warfarin on hold. Agree with IV heparin drip and resume heparin drip post-operatively when safe from a surgical standpoint --Echo completed this am, prelim results show mild LV dysfunction with an apical WMA, stable from prior and well-seated mechanical aortic valve replacement with stable gradients PAF (paroxysmal atrial fibrillation) (HCC) Assessment & Plan By history. He has a dual chamber pacemaker in place for sick sinus syndrome. Last remote device check on 08/15/17 through [facility] showed multiple short bursts of PAF 5-6 seconds in duration. --He is already anticoagulated due to mechanical aortic valve --Brief, self-limiting episodes. No indication to add anti-arrhythmic therapy at this time. Other Preop cardiovascular exam Assessment & Plan S/P mechanical fall from ladder. Anticipating open reduction and plate fixation of the pubic symphysis and percutaneous fixation of the sacroiliac joints on Thursday. He has METS > 4 and no symptoms of angina. He denies any limitations on activity level. He denies any episodes of chest discomfort, dyspnea, palpitations. ################################################################################ ##### ##################### 09/10: ORTHO TRAUMA: have seen and examined this patient and concur with the consult note prepared by the resident staff. I have reviewed the relevant labs, studies, and admission notes. I have reviewed and agree with the documented history, exam, and plan of care, with the following additions and corrections: This is a 57-year-old man who presents to [facility] after falling 15 feet. He was working on a ladder at his house when he fell. He was transferred to an outside hospital, and after a considerable period of time was then transferred to [facility]. Patient complained of pain along his pelvis did not have neurologic complaints. On screening orthopedic examination the patient is in no acute distress. His upper extremities are grossly within the normal limits without wounds, deformity, tenderness or neurovascular findings. His pelvis does not have gross motion with compression. Both lower extremities are grossly within the normal limits without deformity, wounds, or neurovascular findings. Plain films from the outside hospital show a pubic symphysis diastases. The right sacroiliac joint appears to be widened. We have obtained inlet and outlet views here which confirm that. His CT scan done at the outside hospital appears to show right sacroiliac joint widening. There is an irregularity in the left sacroiliac joint as well. This gentleman will require stabilization of his pelvic ring. He has a mechanical valve, and he will need a cardiac evaluation as well as treatment for his INR which is near 2.0. I plan to place him on the operating room schedule for Thursday, September 14, 2017. We will plan open reduction and plate fixation of the pubic symphysis and percutaneous fixation of the sacroiliac joints. Patient appears to be relatively stable without a binder, and it would be appropriate to leave that off. He has no hemodynamic instability. Informed consent will be obtained. IMAGING All imaging was reviewed. Pertinent orthopedic findings are noted below: There is widening of the pubic symphysis measuring 2.5 cm with diastasis of the bilateral SI joints. There is also a fracture of the posterior aspect of the left ilium with a nondisplaced fracture of the right superior pubic ramus ASSESSMENT/PLAN This is a 57 y.o. male with a pelvic ring injury consistent with APC pattern Plan for OR once medically cleared for symphseal plating with possible percutaneous SI screw fixation Patient does not require pelvic binder - this was removed in the ED Abx: per primary Pain control: per primary Weight bearing: NWB BLE VTE prophylaxis per trauma and mechanical ################################################################################ ##### ###################################### TRAUMA NOTE: 09/10: MECHANISM OF INJURY: Fall LOC (yes/no?): No Anticoagulant / Anti-platelet Rx? (for what dx?): INJURIES: 5. Pelvic ring fracture involving bilateral SI joints and widened pubic symphysis. 6. Fracture posterior left ilium and right superior pubic ramus 7. Right posterior 5-6th ribs 8. Small occult PTX on the right ACTIVE MEDICAL PROBLEMS: 5. Artificial Aortic Valve 6. DM non-insulin dependant 7. HLD 8. Depression INCIDENTAL FINDINGS: 2. None ADMISS ION PLAN OF CARE: 1. Admit to TICU 2. Plan to persue cardiac/medical clearance as well as normalization of INR prior to any orthopedic intervention. 3. Pelvis is stable, no indication for pelvic binder 4. Currently recommend non-weight bearing 5. Will start heparin drip, hold coumadin 6. Patient will need good pulm toilet, incentive spirometry q1hr, and EZ pap q4hrs due to rib fractures. 7. Insulin sliding scale 8. Continue good pain control, may have a diet 9. CXR in the am for PTX on the right seen on CT scan 10. Spine clearance status: - Cervical spine is clear. Cervical collar is off. - TLS-Spines are clear. 11. Consultants notified (list specialty/name/time): Orthopedics MEDS / ORDERS: CK FOR ACTIVE BLEEDING Q8HRS, NWB, CONT PULSE OX, VS Q4HRS, BR, CONSULT PMR, CONSULT TRAUMA SURGERY, IS, PAP THERAPY QID, PT/OT EVALUATE AND TREAT, HEPARIN IV DRIP ( ) - IVF LR ( 09/14) - DILAUDID IV PRN Q3HRS FOR PAIN , DCED TODAY AT 1153 DISPO: TBD Discussed with Dr Harmon with Orthopedics, OK for heparin gtt to be resumed tomorrow (09/15) at 1200. Formatting of this note may be different from the original. OPERATIVE REPORT 09/14/2017 3:15 PM Gabriel Karen Mendoza Preoperative Diagnosis: Multiple closed fractures of pelvis with unstable disruption of pelvic ring, initial encounter ([facility]) [S32.811A] Postoperative Diagnosis: Same Procedure: Open reduction and internal fixation of pubic symphysis (CPT 36668) Percutaneous screw fixation right sacroiliac joint (CPT 98882) Percutaneous screw fixation left sacroiliac joint (CPT 52818) Surgeon:Melquiades Marti Marketing Communications Coordinator surgeons: Surgeon(s): MD Bright Sultana MD Anesthesiologist: Asuncion Hebert MD Implants: Implant Name Type Inv. Item Serial No. Dispatch Officer Lot No. [id number] No. Used PLATE 3.5MM 6HL PUBIC SYMPHYSIS INCL 2 [employer] - [id number] PLATE 3.5MM 6HL PUBIC SYMPHYSIS INCL 2 [employer] SYNTHES LT N/A 1 SCREW 3.5 X 36MM CORTEX SELF-TAP - [id number] SCREW 3.5 X 36MM CORTEX SELF-TAP SYNTHES LT N/A 1 SCREW 3.5X38MM CORTEX SELF-TAP - [id number] SCREW 3.5X38MM CORTEX SELF-TAP SYNTHES LT N/A 1 SCREW 3.5 X 40MM CORTEX SELF-TAP - [id number] SCREW 3.5 X 40MM CORTEX SELF-TAP SYNTHES LT N/A 1 SCREW 3.5 X 32MM CORTEX SELF-TAP - [id number] SCREW 3.5 X 32MM CORTEX SELF-TAP SYNTHES LT N/A 1 SCREW 3.5 X 44MM CORTEX SELF-TAP - [id number] SCREW 3.5 X 44MM CORTEX SELF-TAP SYNTHES LT N/A 1 SCREW 3.5X34MM CORTEX SELF-TAP - [id number] SCREW 3.5X34MM CORTEX SELF-TAP SYNTHES LT N/A 1 SCREW 7.3 X 75MM THAI 32MM THRD - [id number] SCREW 7.3 X 75MM THAI 32MM THRD SYNTHES LT N/A 1 WASHER 13MM - [id number] WASHER 13MM SYNTHES LT N/A 2 SCREW 7.3 X 115MM THAI 32MM THRD - [id number] SCREW 7.3 X 115MM THAI 32MM THRD SYNTHES LT N/A 1 EBL: See anesthesia note Complications: None Dispostion: To PACU, stable Indications: This is a 57-year-old gentleman who was admitted as a trauma patient on evening. He has a AP compression pelvic ring injury with symphysis diastases, a wide right SI joint, and a questionable left SI joint injury. Our plan is open reduction and internal fixation of the symphysis, and percutaneous fixation of the right sacroiliac joint. We will evaluate the left sacroiliac joint intraoperatively and make a decision as to whether this also require screw fixation. The patient did require time for medical optimization. He has a mechanical valve which had to be evaluated, he needed an echocardiogram, and his coagulation times were prolonged because of his valve. He is now deemed to be medically available. Informed consent was obtained from the patient. Operative Note: I was personally present and performed the procedure with the assistance of the resident staff. The patient was brought back to the OR and placed supine on the OR table. After the smooth induction of anesthesia by anesthesia staff, the patient was positioned in the supine position and all bony prominences were padded appropriately. Bump was then placed under the sacrum. The surgical field was then provisionally cleansed and then prepped and draped in the usual sterile fashion. At this time a time-out was performed, with the correct patient, site, and procedure identified. The universal time out as well as sign your site protocols were followed. Preoperative antibiotics were as administered as indicated. We began by making a transverse incision above the pubic symphysis. Internally the linea alba was opened giving us access to the space of Retzius. A malleable retractor was used to protect the bladder, and a Cardenas catheter was in place to decompress the bladder. We placed retractors over the pubic rami. The pubic symphysis disruption was then easily visualized. We then gained access to the pubic bone on each side of the midline. Utilizing a bone-holding forceps we reduced the pubic symphysis and an anatomic fashion. This was confirmed under image intensification. We then used a Synthes symphyseal plate and used nonlocking screws on both sides to stabilize the pubic symphysis. We then confirmed the reduction of our anterior pelvic ring on both inlet and outlet views confirm the hardware was in good position. We then copiously irrigated the wound. We closed the fascia in the midline and the remainder of the wound in layers. We then proceeded with a percutaneous fixation of the right posterior pelvic ring. Our intention was to place a percutaneous right SI screw under fluoroscopic guidance. We localized the appropriate starting point for our iliosacral screw on the lateral view of the sacrum, and confirmed its trajectory utilizing inlet and outlet views. We then made a small incision on the right buttock and placed the drill guide on the bone.We placed a 7.3mm mm screw with long threads across the right sacroiliac joint and into the sacral body. The screw was in a safe position utilizing the C-arm. . After confirming this and saving images, the small stab incision was closed in layers. We then proceeded with a percutaneous fixation of the left posterior pelvic ring. Our intention was to place a percutaneous left SI screw under fluoroscopic guidance. We localized the appropriate starting point for our iliosacral screw on the lateral view of the sacrum, and confirmed its trajectory utilizing inlet and outlet views. We then made a small incision on the right buttock and placed the drill guide on the bone.We placed a 7.3mm mm screw with long threads across the right sacroiliac joint and into the sacral body. The screw was in a safe position utilizing the C-arm. . After confirming this and saving images, the small stab incision was closed in layers. Patient was taken to the recovery room in stable condition having tolerated the procedure well. Formatting of this note may be different from the original. Brief Post Operative Note Patient Name: Gabriel Khoury : 1960 (57 y.o.) Date of Service: 09/14/2017 [facility]: [id number] Procedure(s): PUBIC SYMPHYSIS OPEN REDUCTION INTERNAL FIXATION PELVIS PERCUTANEOUS PINNING SI JOINT Pre-Operative Diagnoses: * PELVIC FRACTURE Post-Operative Diagnoses: * Same as Pre-Op Diagnosis * Multiple closed fractures of pelvis with unstable disruption of pelvic ring, initial encounter ([facility]) [V14.413H] Surgeon(s) and Role: * Melquiades Marti MD - Primary * Bright Aguero MD - Fellow Anesthesiologist: Asuncion Hebert MD RECORD PRESS OPERATOR: Rodrigo Lin RECORD PRESS OPERATOR Manager Digital: Maylin Curtis RN Float Remover: Frances Jimenez, TECHNOLOGIST Relief Manager Digital: Irving Huang RN; Kristen Kerns RN Relief Scrub: Maureen Karen Harrisfort Scrub Person: Maylin Curtis RN; Gabriel Mendez RN Anesthesia Specialist: Tori Villafuerte; Tigre Banuelos Operative findings: Successful plating of the pubic symphysis with bilateral sacroiliac joint screws placed percutaneously. Intra and immediate post-operative complications: none Type of anesthesia used: general Estimated blood loss: refer to anesthesia record Estimated urine output: refer to anesthesia record Specimen(s): * No specimens in log * Implant(s): Implant Name Type Inv. Item Serial No. Dispatch Officer Lot No. [id number] No. Used Action PLATE 3.5MM 6HL PUBIC SYMPHYSIS INCL 2 [employer] - [id number] PLATE 3.5MM 6HL PUBIC SYMPHYSIS INCL 2 [employer] SYNTHES LT N/A 1 Implanted SCREW 3.5 X 36MM CORTEX SELF-TAP - [id number] SCREW 3.5 X 36MM CORTEX SELF-TAP SYNTHES LT N/A 1 Implanted SCREW 3.5X38MM CORTEX SELF-TAP - [id number] SCREW 3.5X38MM CORTEX SELF-TAP SYNTHES LT N/A 1 Implanted SCREW 3.5 X 40MM CORTEX SELF-TAP - [id number] SCREW 3.5 X 40MM CORTEX SELF-TAP SYNTHES LT N/A 1 Implanted SCREW 3.5 X 32MM CORTEX SELF-TAP - [id number] SCREW 3.5 X 32MM CORTEX SELF-TAP SYNTHES LT N/A 1 Implanted SCREW 3.5 X 44MM CORTEX SELF-TAP - [id number] SCREW 3.5 X 44MM CORTEX SELF-TAP SYNTHES LT N/A 1 Implanted SCREW 3.5X34MM CORTEX SELF-TAP - [id number] SCREW 3.5X34MM CORTEX SELF-TAP SYNTHES LT N/A 1 Implanted SCREW 7.3 X 75MM THAI 32MM THRD - [id number] SCREW 7.3 X 75MM THAI 32MM THRD SYNTHES LT N/A 1 Implanted WASHER 13MM - [id number] WASHER 13MM SYNTHES LT N/A 2 Implanted SCREW 7.3 X 115MM THAI 32MM THRD - [id number] SCREW 7.3 X 115MM THAI 32MM THRD SYNTHES LT N/A 1 Implanted Drain(s): Urethral Catheter Non-latex (Active) Reassessment Unchd 09/14/2017 11:04 AM Site Assessment Clean;Intact 09/14/2017 11:04 AM Collection Container Urometer 09/14/2017 11:04 AM Securement Method Securing device 09/14/2017 11:04 AM Reason for Continuing Urinary Catheterization past POD 1 Strict I&O 09/13/2017 8:00 PM Output (mL) 200 mL 09/14/2017 4:18 AM Wound(s): Incision 09/14/17 Abdomen (Active) Incision 09/14/17 Hip (Active) Melquiades Marti MD 09/14/2017 3:14 PM Associated Problem(s): History of pacemaker Dual chamber pacemaker in place. He has consistently been A sensed, V paced on telemetry. Echocardiogram this admission shows EF 45% with abnormal septal wall motion secondary to pacemaker. --Device checked today. Attempted to extend AV delay to decrease the amount of ventricular pacing, however patient did not have any intrinsic ventricular response. Device settings left unchanged. --Would upgrade to BIV pacemaker as an outpatient at a later date due to high incidence of ventricular pacing and septal wall motion abnormality with decreasing EF. PHYSICAL THERAPY VISIT VARIANCE NOTE Attempted to see patient at this time, but unable secondary to: PT Visit Variance: Awaiting Medical Clearance. Per chart review patient pending OR with ortho for pelvic ring stabilization currently scheduled for Friday 09/14.Will follow up as appropriate. OCCUPATIONAL THERAPY VISIT VARIANCE NOTE Attempted to see patient at this time, but unable secondary to: OT Visit Variance: Awaiting Medical Clearance. Per chart review patient pending OR with ortho for pelvic ring stabilization currently scheduled for Friday 09/14. Will follow up as appropriate. PHYSICAL THERAPY VISIT VARIANCE NOTE Attempted to see patient at this time, but unable secondary to: PT Visit Variance: Awaiting Medical Clearance, Unable to Participate. Pt with pelvic ring fracture and widened pubic symphysis with stabilization per Ortho pending 09/14. Pt also with active bedrest orders. Will follow up as appropriate post-op. Pt drowsy, lethargic and light headed today. Responds to voice. Pt still diaphoretic. Vitals signs stable and blood sugar 196. Notified Trauma and ordered fluid bolus. Administering bolus and continue to monitor. Formatting of this note may be different from the original. [facility] TRAUMA and ACUTE CARE SURGERY TRAUMA PROGRESS NOTE MECHAN ISM OF INJURY: Fall LOC (yes/no?): No Anticoagulant / Anti-platelet Rx? (for what dx?): INJURIES: 1. Pelvic ring fracture involving bilateral SI joints and widened pubic symphysis. 2. Fracture posterior left ilium and right superior pubic ramus 3. Right posterior 5-6th ribs 4. Small occult PTX on the right ACTIVE MEDICAL PROBLEMS: 1. Artificial Aortic Valve 2. DM non-insulin dependant 3. HLD 4. Depression INCIDENTAL FINDINGS: 1. None SURGERIES/PROCEDURES: Date Operation/Procedure Provider Name DISCHARGE PLANNIN. Ortho follow up 2. Trauma follow up TODAY' S ASSESSMENT AND PLAN OF CARE: 1. Fall: fall from height approximately 2 stories, -LOC, went to OSH and was transferred to [facility] for management of pelvic fractures. Imaging reviewed, tertiary complete, no further imaging at this time. 2. Pelvic Fractures: ortho consulted, planning for surgical fixation on Thursday, pain control. 3. Rib fractures: aggressive pulmonary hygiene, small R ptx noted, will monitor, chest tube not indicated at this time but this will need to be followed especially post operatively. 4. History of Mechanical Aortic Valve: On coumadin at home, holding coumadin given upcoming surgery and now on heparin gtt. Continue heparin gtt. Cardiology following. 5. R L2-4 Tp Fx: no back pain, neuro intact. Pain control. 6. YO: Cr 1.4 on admission, now normal. Monitor. 7. Adrenal Hyperdensity: questionable right adrenal hemorrhage vs nodule. Hg stable. Abdominal exam benign. 8. Preop risk start: no futher workup per cardiology. May proceed to the operative theater. DISPOSITION - TICU CHIEF COMPLAINT/ HPI / PFSHx / EVENTS OVER LAST 24HRS: Complaining primarily of right sided chest wall pain, stable on heparin gtt REVIEW OF SYSTEMS: Denies chest pain, no SOB, no N/V Other than the above items the remainder of the complete ROS is otherwise unchanged from admission. PHYSICAL EXAM: Temp: [98.1 ?F (36.7 ?C)-98.3 ?F (36.8 ?C)] 98.3 ?F (36.8 ?C) Heart Rate: [82-102] 82 Resp: [16-22] 20 BP: (122-152)/(82-99) 144/93 GENERAL: Appears age appropriate. No acute distress. NEUROLOGICAL: Alert and oriented X 3. GCS 15. Follows commands with extremities x4, equal strength. Pupils equal, round, reactive to light. EOMI. No focal neurologic deficits noted. HEAD/FACE: Normocephalic, atraumatic. EYES/EARS/NOSE/MOUTH/THROAT: WNL CARDIOVASCULAR: Regular rate and rhythm. No clicks, rubs, murmurs or gallops noted. No peripheral edema noted. lunchroom monitor displays v-paced rhythm. 2+ pulses radial/DP/PT bilaterally. RESPIRATORY: Lungs, clear to auscultation bilaterally. No rhonchi, wheezes or crackles. Respiratory effort unlabored without use of accessory muscles. ABDOMINAL: Rounded, soft, non-tender, non-distended, normal bowel sounds. No guarding or peritoneal signs. GENITOURINARY: Voiding without difficulty. No dysuria or retention. No gross hematuria. MUSCULOSKELETAL: Extremities atraumatic without gross deformity x4. ROM appropriate for age. No clubbing, cyanosis or joint edema. SKIN: Skin warm and dry. Normal turgor. No rashes or lesions. Intake/Output Summary (Last 24 hours) at 09/11/17 1456 Last data filed at 09/11/17 1300 Gross per 24 hour Intake 1423.53 ml Output 500 ml Net 923.53 ml DAILY CHECKLIST: *Need for Restraints: na *Need for Urinary Catheter: na *Need for Central Access Devices: na *VTE Prophylaxis (Body mass index is 33.88 kg/(m^2)., Estimated Creatinine Clearance: 73.3 mL/min (by C-G formula based on Cr of 1.17).): Heparin gtt Formatting of this note may be different from the original. Problem: Gas Exchange - Impaired Goal: Adequate oxygenation Outcome: Not Met 1. Assess respiratory status through observation of chest for excursion, breath sounds, cough effort & sputum production, and respiratory rate. 2. Notify physician of clinical changes. Continue current therapy Category A Orders: Respiratory Orders Start Ordered 09/11/17916 Incentive spirometry Until discontinued 09/11/1791509/11/17916 PAP therapy 4 times daily 09/11/17915 During rounds pt diaphoretic, HR normal, BP normal, Temp normal. Pt feeling light head and light head. Huang FORCE DISPATCHER at bedside. No new orders but continue to monitor. Gave Dilaudid around 9:33am. Symptoms present an Hr after administration. Pt stable and resting comfortably Associated Problem(s): PAF (paroxysmal atrial fibrillation) (HCC) By history he has a dual chamber pacemaker. Last remote device check on 08/15/17 through [facility] showed multiple short bursts of PAF 5-6 seconds in duration. Device check yesterday post surgery shows no bursts of PAF since August 15, 2017. On warfarin due to mechanical aortic valve. Associated Problem(s): H/O mechanical aortic valve replacement AVR in 2000 with [employer] mechanical valve #29. 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 --Agree with lovenox 1 mg/kg BID, continue until INR reaches 2. Warfarin has been resumed, pharmacy managing. --Echo completed this admission shows mild LV dysfunction with an apical WMA, stable from prior and well-seated mechanical aortic valve replacement with stable gradients. He has moderate to severe septal hypertrophy without LVOT obstruction. --Recommend f/u CT for aortic root dilation as outpatient --He is going to follow up with cardiology at [facility] where he has previously established. Associated Problem(s): Coronary artery disease involving mcgrath coronary artery of mcgrath heart without angina pectoris History of GRACIE to OM1 in 2013. He follows with cardiology at [facility] and was last seen in May 2017. At that time he had no complaints of angina. Per notes, he has been unable to tolerate statins previously. --No statin due to previous intolerance. Consider alternate therapy as an outpatient. --Continue ASA Report given to receiving nurse. Nurse with no questions at this time Pt resting in bed with family at the bedside. Pt is alert and oriented, VSS, ABCS intact and NAD noted. This RN asked if pt or family needed anything at this time and they stated no. This RN will continue to monitor Patient is resting comfortably. VSS. NAD noted and ABC's intact. Resps even and unlabored. Call light within reach. Patient updated on continued plan of care. Family continues to approach this RN at the nurses station about wait time. This RN continues to explain to family that trauma will be in as soon as they are available from the trauma bay. This RN made trauma aware of family wanting updated Pt and family requesting pain medication at this time. This RN paged trauma at this time and got a verbal order for 50mg fentanyl Pt resting comfortably. Family at the bedside. This RN answered all pts and families questions at this time. Bed: 25 Expected date: Expected time: Means of arrival: Comments: Hold for Shaunna's trauma Pt from trauma bay to room Formatting of this note may be different from the original. Patient Name: Gabriel Khoury Admit Date: [id number] MR #: [id number] : 1960 Physicians: Rich Fernando DO (Family); No ref. provider found (Referring) Chief Complaint/Reason for Visit: fall History of Present Illness: Gabriel Khoury is a 57 y.o. male presenting as a level 2 trauma after sustaining injuries from Fall from roof. Pt was replacing shingles and fell approximately 12 feet. +LOC. On coumadin. Xray from osh with open pelvic fracture. Binder placed. History: No past medical history on file. No past surgical history on file. No family history on file. Social History Social History Marital status: N/A Spouse name: N/A Number of children: N/A Years of education: N/A Occupational History Not on file. Social History Main Topics Smoking status: Not on file Smokeless tobacco: Not on file Alcohol use Not on file Drug use: Not on file Sexual activity: Not on file Other Topics Concern Not on file Social History Narrative Allergy Information: I have reviewed the patient's allergies. Review of patient's allergies indicates not on file. Home Medications: No current outpatient prescriptions on file as of 09/10/2017. Review of Systems: The 12 point review of system(s) were reviewed and negative, with exception of pertinent findings noted above Physical Examination: Vital Signs: BP (!) 140/99 (BP Location: Left arm, Patient Position: Lying) Pulse 99 Temp 98.1 ?F (36.7 ?C) (Oral) Resp 18 SpO2 93% Primary Survey: Airway Patent. Breathing spontaneously. Breath sounds CTA B/L. Circulation: 2+ radial, femoral, dp, pt pulses bilaterally. Neuro: GCS 15 Eyes: 4 Verbal: 5 Motor: 6 Secondary Survey: HEENT: Occipital hematoma with laceration noted PERRL Facial bones are stable and nontender to palpation. Tympanic membranes are clear bilaterally. Trachea midline CV: Chest symmetric, it is nontender without crepitus. ABD: Soft, NTND. No rebound or rigidity. Pelvis is tendern diffusely, with binder placed Fast exam is negative in the Pericardial, RUQ, LUQ, and Suprapubic views for fluid. CTL SPINE: Cspine is immobilized in a hard collar and is non tender without palpable stepoff or deformity. T spine is non tender without palpable stepoff, deformity or abrasion. L spine is non tender without palpable stepoff, deformity or abrasion. : No blood noted at the urethral meatus. RECTAL: Deferred EXTREMITIES: Full range of motion of all extremities. Deformities: None SKIN: Cap refill < 2 sec; no cyanosis Laboratory and Additional Data Reviewed: Laboratory 11/23/17 7:58 PM Assessment and Plan: Patient is a 57-year-old male who is on Coumadin presents for evaluation after a fall from an outside facility. Findings of an open pelvic fracture. Given the history, did place this patient is a level 2 trauma alert. Trauma surgery consulted, orders, imaging, disposition per their recommendations. Woodrow Farrar MD 09/10/171958 Pt placed in vista collar by trauma team Trauma Referral [facility] Level 2 called at 1936 by with ETA 5 min. Transported by [facility].in this encounter Jake Goodwin, DO - 09/10/2017 7:44 PM EST H&P Notes (unrecognized sect ion and content) Formatting of this note may be different from the original. [facility] TRAUMA and ACUTE CARE SURGERY TRAUMA EVALUATION / HISTORY AND PHYSICAL MECHAN ISM OF INJURY: Fall LOC (yes/no?): No Anticoagulant / Anti-platelet Rx? (for what dx?): INJURIES: 1. Pelvic ring fracture involving bilateral SI joints and widened pubic symphysis. 2. Fracture posterior left ilium and right superior pubic ramus 3. Right posterior 5-6th ribs 4. Small occult PTX on the right ACTIVE MEDICAL PROBLEMS: 1. Artificial Aortic Valve 2. DM non-insulin dependant 3. HLD 4. Depression INCIDENTAL FINDINGS: 1. None ADMISS ION PLAN OF CARE: 1. Admit to TICU 2. Plan to persue cardiac/medical clearance as well as normalization of INR prior to any orthopedic intervention. 3. Pelvis is stable, no indication for pelvic binder 4. Currently recommend non-weight bearing 5. Will start heparin ip, hold coumadin 6. Patient will need good pulm toilet, incentive spirometry q1hr, and EZ pap q4hrs due to rib fractures. 7. Insulin sliding scale 8. Continue good pain control, may have a diet 9. CXR in the am for PTX on the right seen on CT scan 10. Spine clearance status: - Cervical spine is clear. Cervical collar is off. - TLS-Spines are clear. 11. Consultants notified (list specialty/name/time): Orthopedics TRAUMA CATEGORY: II CHIEF COMPLAINT: Pelvic pain s/p fall HISTORY OF PRESENT ILLNESS / INJURY (HPI): 57 y/o male presents w/ CC of fall. Pt fell off two story roof while shingling, hitting first foyer roof on way down. Pt originally seen at [facility], transfered here. Arrives with pelvic binder in place. Pt on Coumadin for aortic valve replacement. INR 1.9, Hgb 14. OSH scans show open pelvic fx, CXR - displaced right posterior 5th-6th rib fx, left subclavian pacer. CT head/neck, T/L, and C/A/P negative and reviewed by our local radiologist in the trauma bay. PAST MEDICAL HISTORY (PMH): Medical history: DM, HTN, HLD, CAD, Aortic stenosis -LMP (females only): No LMP for male patient. -Last tetanus: Today Surgical history: Aortic valve surgery Social history: -Place of residence (home, [facility], etc): Home -Tobacco use: No -EtOH use: No -Illicit drug use: No Family history: Mother - aortic stenosis MEDICATIONS: No current outpatient prescriptions on file as of 09/10/2017. ALLERGIES: Allergies not on file REVIEW OF SYSTEMS [List positives and pertinent negatives]: Constitutional Symptoms: Eyes: Ears, Nose, Mouth, Throat: Cardiovascular: Respiratory: Gastrointestinal: Genitourinary: Musculoskeletal: Pelvic pain Skin/Breast: Chest wall pain Neurological: Psychiatric: Endocrine: Hematologic/Lymphatic: Allergic/Immunologic: Other than the above items, the remainder of a complete review of systems is otherwise negative. PHYSICAL EXAM: There were no vitals taken for this visit. There is no height or weight on file to calculate BMI. PRIMARY SURVEY Airway Patent, trachea midline. Phonation is normal. Breathing Symmetric chest rise and fall. Breath sounds present bilaterally. Circulation Pulses 2+ throughout. Disability Moves extremities normally x 4. No lateralizing neurologic signs. Pupils 4 mm equal and reactive bilaterally. Stevo Coma Scale EYES (4-spont, 3-to verb stim, 2-to pain, 1-none) 4 VERBAL (5-oriented, 4-confused, 3-inappropriate, 2-incomprehensible, 1-none) 5 MOTOR (6-follows, 5-localizes, 4-withdraws, 3-flexion, 2-extension, 1-none) 6 GCS: 15 SECONDARY SURVEY General Appears age appropriate. In distress, complaining of b/l hip HEENT Head normocephalic, PERRL, EOMI, mid face stable, tympanic membranes intact, no subconjunctival hemorrhage, nares patent bilaterally, no epistaxis, mouth clear of foreign bodies. Occipital scalp laceration. Neck Cervical collar in place, no midline tenderness to palpation, no step offs, crepitus, or deformities. Chest/Respiratory Lungs clear bilaterally. Breathing is non-labored. Chest wall right sided tenderness to palpation, crepitus, deformities, lacerations, or abrasions. Cardiovascular RRR. No murmur, rub, gallop. Abdomen Soft, nontender to palpation, non-peritoneal. No lacerations, abrasions or ecchymosis. Pelvis Binder in place, not removed, diffuse TTP.Stable Rectal No gross blood. Sphincter tone intact. No signs of trauma. Genitalia normal for age. No lesions noted. No blood at meatus. Cardenas catheter not in place. Back/Spine TLS spine non-tender to palpation. No step-offs, deformities, lacerations or abrasions. Musculoskeletal Extremities without clubbing, cyanosis, edema. No obvious bony deformity, full ROM. Skin Warm and dry. No lesions of concern. Not jaundiced. No abrasions/contusions. Neurologic A&Ox3. Strength, sensation, proprioception normal. No cerebellar signs. Psychiatric Normal mood. Normal affect. Appropriate insight into current situation. Other FAST Exam: Pericardial: Negative RUQ: Negative LUQ: Negative Pelvic: Negative EFAST (PTX): Negative FAST Completed by [providers First, Last Name]: Greg Charlton DO IMAGING STUDIES: [brief summary of results] CXR: Mildly displaced right posterior 5th-6th rib fx. Left subclavian dual lead pacer. Cardiac silhouette enlargement Pelvis Xray: open book type pelvic injury present w/ widening of pubic symphysis and sacroiliac joints. Fx of right superior pubic ramus CT Head: Negative CT C-Spine: Negative CT T&L-Spine: Negative CTA Neck: Negative CTA Chest/Abd/Pelvis: Small right pneumothorax CT Maxillofacial: Did not perform Other: Did not perform LABORATORY STUDIES: Results from trauma bay labs were reviewed. Pertinent findings may be listed below. . Urine : N/A TRAUMA BAY / ED PROCEDURES (these require separate procedure note/dication): Procedure Provider Location/Site/Description Suture closure of laceration: N Chest Tube: N Intubation: N CVC: N Arterial catheter: N Diagnostic Peritoneal Aspiration: N Associated attestation - Ashley Quarles MD - 09/11/2017 12:06 AM EST TRAUMA, CRITICAL CARE, AND ACUTE CARE SURGERY STAFF PHYSICIAN NOTE OF PERSONAL INVOLVEMENT IN CARE: I have personally seen and examined this patient and participated in the wiley components of this encounter. I discussed the management of this case with the Resident/Nurse Practitioner/Physician Marketing Communications Coordinator and independently confirmed the findings and plan of care as documented either attached or in their separate note from today. Any necessary corrections or additions are noted. FAST scan negative for fluid in the hepatorenal fossa, splenorenal fossa, pericardium, and pelvis. All other systems reviewed and negative other than the HPI. Seen and evaluated on 09/10/17. Falll 25 feet. Iliac fracture and rib fractures. Awake alert. On coumadin for history of aortic valve. Admit - ortho recs, heparin drip for valve and hold coumadin in preparation for OR in the coming days with ortho. in this encounter Doretha Rogers MD - 09/16/2017 4:14 PM Lizzy Gonzalez OT - 09/15/2017 2:48 PM Olimpia Mejia - 09/15/2017 10:07 Janay Montilla MD - 09/11/2017 9:40 AM EST Consult Notes (unrecognized section and content) Associated Order(s): IP CONSULT TO PHYSICAL MEDICINE REHAB Formatting of this note may be different from the original. Attending Attestation: Patient seen and examined with resident. Note edited to reflect my thoughts and findings. Assessment and plan formulated with resident and edited to reflect my thoughts and findings. Currently patient is NWB except for transfers bilateral lower limbs and will need to be independent in order to return home as lives alone; limited family support. Recommend SNF rehab until WB restrictions lifted, then referral to IPR to optimize ability to regain independence. Will also need aggressive bowel regiment while on narcotics to minimize constipation (recommendations below). Thank you for the consult. Doretha Rogers MD Physical Medicine and Rehabilitation Consult Note Gabriel Khoury [phone] Reason for Consult: therapy needs History: History of Present Illness: Gabriel Khoury is a 57 y.o. male with past medical history of multiple cardiac comorbidities (CAD w/ PCI, mechanical AV valve, p.AFib, sick sinus syndrome s/p dual chamber pacemaker, DM) admitted 09/10/2017 following a fall from his roof with +LOC. Injuries included unstable pelvic ring fracture, fractured L ileum/R superior pubic ramus, R posterior ribs 5-6, occult R pneumothorax. He underwent open reduction, plate fixation of the pubic symphysis on 09/14. He has incisional post-op pain but no paresthesias or numbness in his LEs and has not had difficulties with urination. Endorses constipation LBM 2 days ago. He denies BOB, CP, SOB. Past Medical, Surgical, and Family History: The patient's past medical, surgical, and family history were reviewed. Medical: Past Medical History: Diagnosis Date Atrial fibrillation (HCC) Coronary artery disease GRACIE OM 2013 Diabetes mellitus (HCC) Hypertension Surgical: Past Surgical History: Procedure Laterality Date A-V CARDIAC PACEMAKER INSERTION MECHANICAL AORTIC VALVE REPLACEMENT 2000 ORIF PELVIS N/A 09/14/2017 Procedure: PUBIC SYMPHYSIS OPEN REDUCTION INTERNAL FIXATION PELVIS PERCUTANEOUS PINNING SI JOINT; Surgeon: Melquiades Marti MD; Location: [facility] Main OR; Service: Family: History reviewed. No pertinent family history. no cardiac history Social History: reports that he quit smoking about 16 years ago. His smoking use included Cigarettes. He has quit using smokeless tobacco. He reports that he does not drink alcohol. Lives at [address] [place] [address] [address] [place] [address]. Home Environment: single story house, 0STE. Tub/shot unit, standard bathroom toilet, grab bars in bathroom w/ shower chair, accessible bathroom Support Systems: lives alone Functional History: Premorbid level of function: independent with ADLs, functional transfers, homemaking with ambulation Current level of function per therapy evaluations: Reviewed in EMR. Max, two person assist with functional transfers, bed mobility. Dependent on LE dressings and maxA for toileting Therapists' recommendations for frequency of therapies: PT, OT: 5-7 d/week ROM restrictions, WB restrictions, precautions: NWB RLE, LLE (okay to stand on LLE for transfers only) Review of Systems ROS: General ROS: negative for - chills, fever or sleep disturbance Psychological ROS: negative for suicidal ideation Ophthalmic ROS: negative for - decreased vision, double vision, eye pain ENT ROS: negative for - epistaxis, headaches, hearing change Respiratory ROS: negative for - cough, pleuritic pain, shortness of breath, tachypnea or wheezing Cardiovascular ROS: negative for - chest pain, edema, palpitations or rapid heart rate Gastrointestinal ROS: +constipation, negative for - abdominal pain, appetite loss, blood in stools, or diarrhea Genito-Urinary ROS: negative for - dysuria or hematuria Musculoskeletal ROS: negative for - joint swelling, +muscle weakness Neurological ROS: negative for - behavioral changes, bowel and bladder control changes, confusion, dizziness, headaches Medications Allergies: Gabriel A Mendoza No Known Allergies Physical Exam: Vital Signs: PACU Vitals 09/16/17 1430 BP: 124/69 Pulse: 87 Resp: Temp: SpO2: 93% Intake/Output Summary (Last 24 hours) at 09/16/17 1614 Last data filed at 09/16/17 1330 Gross per 24 hour Intake 0 ml Output 300 ml Net -300 ml General Appearance: Alert, cooperative, no distress, appears stated age Head: Normocephalic, without obvious abnormality, atraumatic. Face symmetrical. PERRL, EOMI. Vision intact. Neck: Supple, symmetrical, ROM intact Lungs: Breathing unlabored without sign of distress or use of accessory muscles. Heart: Pulse regular. Without peripheral edema. Abdomen: Soft, Nonperitoneal. Some TTP to lower abdomen Extremities: Extremities normal, atraumatic, no cyanosis or edema. Sensation intact. Pulses: 2+ and symmetric DP and radial pulses bilaterally. Skin: Skin color, texture, turgor normal, no rashes or lesions Neurologic: A&Ox3. CNII-XII intact grossly, sensation and reflexes throughout bilaterally. Without focal neurological deficits. Follows commands MMT: RUE and LUE: 02/20 SAB, EE, EF, WE, MALISSA, FF RLE and LLE: 02/20 KE, KF, ADF, APF. Hip flexion not assessed and was limited to pain Musculoskeletal: Passive ROM intact w/o difficulty and pain. ? Relevant Studies: Reviewed in EMR. Lab Results Component Value Date WBC 9.27 09/16/2017 HGB 9.2 (L) 09/16/2017 HCT 26.9 (L) 09/16/2017 MCV 89.7 09/16/2017 PLT 215 09/16/2017 Lab Results Component Value Date GLUCOSE 180 (H) 09/16/2017 CALCIUM 8.3 (L) 09/16/2017 NA 129 (L) 09/16/2017 K 4.7 09/16/2017 CL 93 (L) 09/16/2017 BUN 30 (H) 09/16/2017 CREATININE 0.92 09/16/2017 Lab Results Component Value Date INR 1.3 (H) 09/16/2017 INR 1.94 09/10/2017 INR 1.8 (H) 08/12/2011 ALT 72 (H) 09/10/2017 AST 83 (H) 09/10/2017 IMAGING: Reviewed in EMR. 09/10: XR pelvis 1. Diastasis of the pubic symphysis, measuring 24 mm. 2. Diastasis of the bilateral sacroiliac joints, right greater than left. 3. Fracture of the left ischium, better appreciated on the previous CT. 4. Nondisplaced fracture of the right superior pubic ramus. Impression/Recommendations: Gabriel Khoury is a 57 y.o. male admitted 09/10/2017 for a fall with polyorthopedic trauma including pelvic fracture s/p open reduction, plate fixation of the pubic symphysis on 09/14. Pelvic fracture s/p open reduction, plate fixation of the pubic symphysis on 09/14. -currently NWB RLE, LLE (may stand on LLE for transfers only) -pain management per primary team. Recommend aggressive bowel regimen to reduce risk for constipation in the setting of opioid use. Can use senna and/or miralax for laxatives, colace for stool softeners. Dulcolax suppositories are available for refractory constipation. ? Rehab: Based on today's exam, the patient would most likely be appropriate for SNF when medically stable. If, while at SNF, he is able to transition his weightbearing status from NWB, then he may be a candidate for IPR. We will continue to follow. Please continue therapies while patient is admitted at [facility]. Thank you for the consult. Please feel free to contact our consult service with medical updates or follow-up questions. Maureen Schilling MD Physical Medicine and Rehabilitation PGY-2 #[phone] Formatting of this note may be different from the original. Occupational Therapy OCCUPATIONAL THERAPY EVALUATION NOTE Occupational Therapy Assessment Body Structure and Function: Musculoskeletal impairment, Cardiopulmonary impairment Explain Impairments: Pelvic ring fractures with weight bearing precautions, rib fractures, decreased activity tolerance, impaired balance, pain Activities and Participation: ADL/IADL limitation, Balance limitation and fall risk, Mobility limitation Explain Limitations: Requires assistance for ADLs and mobility due to above factors Environmental Factors: Home situation, Family/caregiver support Explain Environmental Factors: Lives alone Personal Factors: Awareness of own capacity and performance Explain Personal Factors: Impaired sequencing and maintainence of weight bearing precautions Rehab Potential: Good Activity Tolerance: Tolerates 10 - 20 min activity with multiple rests Skilled Therapy Needs After Discharge Anticipate Resolution of Current Assessment Limitations Including: Pain Are Skilled Therapy Services Needed After Discharge: Yes Intensity of Skilled Therapy: 5 to 7 days per week Anticipated Duration of Skilled Therapy: Duration 10 - 30 days DME Recommendation: Tub transfer bench, Wheeled walker, Bedside commode, Wheelchair, Adaptive equipment kit DME Rationale: Equipment required to maintain weight bearing status per physician orders, Patient will require increased level of care without recommended equipment, Wheelchair - mobility limitation cannot be safely resolved with ambulatory aide, Commode - patient confined to single room, Functional reach deficit/ post surgical precaution adherence/ limitations of body habitus Outcomes Measures Prior Function Daily Activity: Raw Score: 24 Prior Function Daily Activity % Impaired: 0% functionally impaired AM-PAC Daily Activity: Raw Score: 16 AM-PAC Daily Activity % Impaired: 53.32% functionally impaired Therapy Precautions Orthotic Devices: No Weight Bearing Status: X RLE: Non Wt bearing LLE: Non Wt bearing (okay to WB for transfers only) General Rehab Precautions: Fall risk Cognition Overall Cognitive Status: Within Functional Limits Arousal/Alertness: Appropriate responses to stimuli Orientation Level: Oriented X4 Executive functioning: WFL Safety Judgment: Decreased awareness of need for safety Problem Solving: Assistance required to generate solutions Attention: Attends to quiet environment Hearing Status: WFL Social Interaction: Appropriate, Cooperative Comments: Patient followed 100% of 2 step commands with cues for technique and safety. ADL/IADL LE Dressing: Dependent Toileting : Max Bed Mobility Supine to Sit: Max, 2 person assist Sit to Supine: Max, 2 person assist Functional Transfers Sit to Stand: Max, Two person assist Toilet Transfers: Max, Two person assist (squat pivot to BSC) Home Living Type of Home: House Home Layout: One level Bathroom Shower/Tub: Tub/shower unit Bathroom Toilet: Standard Bathroom Equipment: Grab bars in shower, Shower chair Bathroom Accessibility: Accessible Prior Level of Function Level of [place]: Independent with ADLs and functional transfers, Independent with homemaking with ambulation Lives With: Alone ADL Assistance: Independent Homemaking Assistance: Independent Past Medical History: Diagnosis Date Atrial fibrillation (HCC) Coronary artery disease GRACIE OM 2013 Diabetes mellitus (HCC) Hypertension Past Surgical History: Procedure Laterality Date A-V CARDIAC PACEMAKER INSERTION MECHANICAL AORTIC VALVE REPLACEMENT 2000 ORIF PELVIS N/A 09/14/2017 Procedure: PUBIC SYMPHYSIS OPEN REDUCTION INTERNAL FIXATION PELVIS PERCUTANEOUS PINNING SI JOINT; Surgeon: Melquiades Marti MD; Location: [facility] Main OR; Service: OCCUPATIONAL THERAPY TREATMENT NOTE Total Treatment Time (Total Session Time): 30 Minutes Timed Code Treatment Minutes: 15 Minutes Cognitive Skills Development Skilled Intervention: Patient able to verbalize weight bearing precautions however required max cues throughout session for technique to maintain. Self-Care / Home Management ADL/IADL Skilled Intervention: Patient educated on compensatory strategies for ADL tasks. Therapeutic Activities Bed Mobility Skilled Intervention: Mod verbal and tactile cues for sequencing and technique with compliance of weight bearing status to come into upright sitting and scoot hips to EOB. Functional Transfers Skilled Intervention: Max verbal and tactile cues for hand/foot placement and technique to come into standing with use of WW. Patient with difficulty sequencing pivot to commode from full stand while maintaining weight bearing status. Patient educated on squat pivot technique to drop arm BSC. Max verbal and tactile cues for body mechanics, technique, and compliance with weight bearing status. For complete objective data, detailed plan of care and patient education refer to: OT EVALUATION flow sheet, OT TREATMENT flow sheet, patient Plan of Care, Plan of Care progress note, and Patient Education. This note stands as the current Discharge Summary upon patient discharge from the hospital or completion of Occupational Therapy Plan of Care. Formatting of this note may be different from the original. Physical Therapy PHYSICAL THERAPY EVALUATION AND TREATMENT NOTE Treatment initiated during evaluation - treatment note attached. Physical Therapy Assessment Body Structure and Function: Musculoskeletal impairment, Cardiopulmonary impairment, Integumentary impairment Explain Impairments: Pain, generalized weakness and deconditioning, active tissue healing: surgical incisions, impaired balance Activities and Participation: Mobility limitation, Balance limitation and fall risk Explain Limitations: impaired gait, transfers, and stair negotiation, decreased safety and fall risk Environmental Factors: Home situation, Family/caregiver support Explain Environmental Factors: Lives alone in single floor home Personal Factors: Awareness of own capacity and performance (co-morbidities ) Explain Personal Factors: Apprehensive with mobility due to pain and recent injuries/surgeries, co-morbidities: b/l NWB precautions, HTN, DM, unable to work Rehab Potential: Fair Clinical Presentation: Unpredictable: Current deficits and co-morbidities listed above will make progress in plan of care unpredictable. Skilled Therapy Needs After Discharge Anticipate Resolution of Current Assessment Limitations Including: Pain Are Skilled Therapy Services Needed After Discharge: Yes Intensity of Skilled Therapy: 5 to 7 days per week Anticipated Duration of Skilled Therapy: Duration 10 - 30 days DME Recommendation: Wheeled walker, Wheelchair, Bedside commode, Tub transfer bench DME Rationale: Patient's condition prevents him/her from accomplishing ADL without recommended equipment, Patient's condition creates an increased risk of safety hazard without recommended equipment, Equipment required to maintain weight bearing status per physician orders, Patient will require increased level of care without recommended equipment Outcomes Measures Prior Function - Basic Mobility Raw Score: 24 Points Prior Function - Basic Mobility % Impaired: 0% functionally impaired AM-PAC - Basic Mobility Raw Score: 9 Points AM-PAC - Basic Mobility % Impaired: 77.59% functionally impaired Therapy Precautions Orthotic Devices: No Weight Bearing Status: X RLE: Non Wt bearing LLE: Non Wt bearing (can WB to pivot to chair ) General Rehab Precautions: Fall risk Balance Sitting Balance - Static: Sits without support for more than 30 seconds Standing Balance - Dynamic: (max (2) with WW) Bed Mobility Supine to Sit: Max, 2 person assist Sit to Supine: Max, 2 person assist Transfers Sit to Stand: Max, Two person assist (NWB RLE, WB LLE) Machine Gunner: Wheeled walker Gait/Locomotion Gait Assistance: (Deferred, pivot only restriction) Home Living Type of Home: House Home Layout: One level Bathroom Shower/Tub: Tub/shower unit Bathroom Toilet: Standard Bathroom Equipment: Grab bars in shower, Shower chair Bathroom Accessibility: Accessible Prior Level of Function Level of [place]: Independent with ADLs and functional transfers, Independent with homemaking with ambulation Lives With: Alone ADL Assistance: Independent Homemaking Assistance: Independent Past Medical History: Diagnosis Date Atrial fibrillation (HCC) Coronary artery disease GRACIE OM 2013 Diabetes mellitus (HCC) Hypertension Past Surgical History: Procedure Laterality Date A-V CARDIAC PACEMAKER INSERTION MECHANICAL AORTIC VALVE REPLACEMENT 2000 PHYSICAL THERAPY TREATMENT NOTE Total Treatment Time (Total Session Time): 45 Minutes Timed Code Treatment Minutes: 25 Minutes Therapeutic Activities Bed Mobility Skilled Intervention: Patient given verbal cues for transfer sequence, hand placement with max assist at trunk and to move b/l LE on/off the bed. Patient given verbal and tactile cues for scooting on EOB, but was unable to scoot without using LE. Transfers Skilled Intervention: Patient given verbal cues for hand placement, transfer sequence, anterior trunk lean, and WB precautions. Patient stood from an elevated bed, and was able to maintain NWB of the RLE with standing, but was unable to maintain precautions with the descent phase. Patient required max (A) to achieve standing with use of b/l UE. Patient given tactile cues for hip extension and upright posture. Patient able to maintain standing and WB precautions for one minute. For complete objective data, detailed plan of care and patient education refer to: PT EVALUATION flow sheet, PT TREATMENT flow sheet, patient Plan of Care, Plan of Care progress note, and Patient Education. This note stands as the current Discharge Summary upon patient discharge from the hospital or completion of Physical Therapy Plan Associated Order(s): IP CONSULT TO CARDIOLOGY Formatting of this note may be different from the original. CARDIOLOGY CONSULT NOTE Assessment and Plan: Cardiovascular and Mediastinum Coronary artery disease involving mcgrath coronary artery of mcgrath heart without angina pectoris Assessment & Plan History of GRACIE to OM1 in 2013. He reports exertional chest discomfort prior to intervention. He follows with cardiology at [facility] and was last seen in May 2017. At that time he had no complaints of angina. Per notes, he has been unable to tolerate statins previously. --Resume ASA if ok with surgical team --No statin due to previous intolerance. Consider alternate therapy as an outpatient. H/O mechanical aortic valve replacement Assessment & Plan In 2000 with Krikle mechanical valve #29. 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 --warfarin on hold. Agree with IV heparin drip and resume heparin drip post-operatively when safe from a surgical standpoint --Echo completed this am, prelim results show mild LV dysfunction with an apical WMA, stable from prior and well-seated mechanical aortic valve replacement with stable gradients PAF (paroxysmal atrial fibrillation) (HCC) Assessment & Plan By history. He has a dual chamber pacemaker in place for sick sinus syndrome. Last remote device check on 08/15/17 through [facility] showed multiple short bursts of PAF 5-6 seconds in duration. --He is already anticoagulated due to mechanical aortic valve --Brief, self-limiting episodes. No indication to add anti-arrhythmic therapy at this time. Other Preop cardiovascular exam Assessment & Plan S/P mechanical fall from ladder. Anticipating open reduction and plate fixation of the pubic symphysis and percutaneous fixation of the sacroiliac joints on Thursday. He has METS > 4 and no symptoms of angina. He denies any limitations on activity level. He denies any episodes of chest discomfort, dyspnea, palpitations. --Would proceed to surgery without additional cardiac testing prior to surgery Chief Complaint/Reason for Visit: fall History of Present Illness: Gabriel Khoury is a 57 y.o. y/o male presenting following a mechanical fall from a ladder on 09/10 while replacing a roof. He is in need of orthopedic surgery on Thursday. He has an extensive cardiac history for which he follows at [facility]. He has known CAD with PCI in 2013, PAF, SSS with dual chamber pacemaker. 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 He is physically active and denies any limitations prior to admission. Cardiology consult is requested for preop evaluation. History: Past Medical History: Diagnosis Date Atrial fibrillation (HCC) Coronary artery disease GRACIE OM 2013 Diabetes mellitus (HCC) Hypertension Past Surgical History: Procedure Laterality Date A-V CARDIAC PACEMAKER INSERTION MECHANICAL AORTIC VALVE REPLACEMENT 2000 No family history on file. Social History Social History Marital status: Single Spouse name: N/A Number of children: N/A Years of education: N/A Occupational History Not on file. Social History Main Topics Smoking status: Former Smoker Types: Cigarettes Quit date: 02/08/2001 Smokeless tobacco: Former User Alcohol use No Drug use: Not on file Sexual activity: Not on file Other Topics Concern Not on file Social History Narrative No narrative on file Allergy Information: I have reviewed the patient's allergies. Review of patient's allergies indicates no known allergies. Home Medications: No current outpatient prescriptions on file as of 09/11/2017. Review of Systems: The following system(s) were reviewed and pertinent findings noted: Constitutional:No fever, no weight loss CV:No chest pain. No ankle swelling Resp:No dyspnea. No wheezing GI:No abdominal pain.No abdominal distention Integumentary:No skin rash MuscSkel: Complains of back pain Physical Examination: Vital Signs: BP (!) 144/92 Pulse 91 Temp 98.3 ?F (36.8 ?C) (Oral) Resp (!) 22 Ht 5' 11 Wt 110.2 kg (242 lb 15.2 oz) SpO2 97% BMI 33.88 kg/m2 Neck: No JVD. Heart:: Regular Rhythm. Normal Intensity S1 and S2. 1 /6 systolic murmur. Mechanical click. Lungs: Clear to auscultation. Good air movement. No crackles noted. Extremities: Extremities are warm. No peripheral edema. Adequate peripheral pulses. Otherwise alert and oriented X3 in no acute distress. Head is normocephalic. No epistaxis noted. Abdomen is soft, nontender without any masses noted. No significant muscular atrophy. Normal skin turgor. Cranial nerves II - XII are grossly intact. Normal affect. Intake/Output last 3 shifts: I/O last 3 completed shifts: In: 1300 [P.O.:1300] Out: 500 [Urine:500] Laboratory and Additional Data Reviewed: Invalid input(s): CKMBINDEX Results from last 7 days Lab Units 09/11/17 0539 SODIUM mmol/L 134* POTASSIUM mmol/L 4.8 CHLORIDE mmol/L 97* BUN mg/dL 20 CREATININE mg/dL 1.17 GLUCOSE mg/dL 245* CALCIUM mg/dL 8.8 Results from last 7 days Lab Units 09/11/17 0539 WBC K/mcL 10.60 HGB g/dL 12.8* HCT % 36.9* PLT K/mcL 236 Radiographics: Pertinent studies independently reviewed and noted in HPI. Cardiac Studies: I Independently reviewed and noted in HPI. ECG: A sensed, v paced Personally reviewed Telemetry: No events noted. and v paced Patient Name: Gabriel Khoury Admit Date: [id number] MR #: [id number] : 1960 Physicians: Cal Bah MD (Family); No ref. provider found (Referring) I have seen and examined this patient with the FORCE DISPATCHER. I agree with her assessment and plan and recommendations. Echo with stable LV function and valve function. Overall, mechanical aortic valves are less thrombogenic than mechanical aortic valves, therefore the risk of holding anticoagulation in terms of thrombus formation is relatively low. Would resume heparin drip post operatively when safe. Janay Paulino MD, [facility] Associated Order(s): IP CONSULT TO ORTHOPEDIC SURGERY Formatting of this note may be different from the original. Orthopaedic Surgery Trauma Consult The patient was seen and evaluated in the ED at approximately 830 pm. I was paged at approximately 8:25 pm. Gabriel Khoury is a 57 y.o. male who presents to [facility] after sustaining a fall from approximately 15 feet earlier this afternoon. Patient was on his roof completing housework when his ladder slipped and he fell to the ground below. He apparently did strike his head with apparent loss of consciousness. Paramedics were contacted and he was subsequently transferred to the ED for further evaluation. Currently, he is complaining of pain along the pelvic innominate as well as along the right flank/trunk. He denies paresthesias. Past Medical History: No past medical history on file. Surgical History: No past surgical history on file. Family History: No family history on file. Social History: Social History Social History Marital status: Single Spouse name: N/A Number of children: N/A Years of education: N/A Occupational History Not on file. Social History Main Topics Smoking status: Not on file Smokeless tobacco: Not on file Alcohol use Not on file Drug use: Not on file Sexual activity: Not on file Other Topics Concern Not on file Social History Narrative Allergies: No Known Allergies Home Medications: Gabriel Khoury Home Medication Instructions Prior to Surgery GODWIN:[id number] Printed on:09/10/172246 Medication Information Take last dose on Take the morning of surgery Comment(s) aspirin 81 MG EC tablet Take 81 mg by mouth daily Reasons: mechanical aortic valve. escitalopram oxalate (LEXAPRO) 20 MG tablet Take 20 mg by mouth daily. lisinopril (PRINIVIL,ZESTRIL) 5 MG tablet Take 5 mg by mouth daily. metFORMIN (GLUCOPHAGE) 500 MG tablet Take 500 mg by mouth 2 (two) times a day with meals. warfarin (COUMADIN) 10 MG tablet Take 12 mg by mouth every morning 10 mg + 2 mg = 12 mg . warfarin (COUMADIN) 4 MG tablet Take 12 mg by mouth every morning 10 mg + 2 mg = 12 mg Reasons: mechanical aortic valve. ROS: Gen: Denies fever, chills, nausea and vomiting Neuro: Denies: tingling and numbness of extremity VITAL SIGNS Vitals: 09/10/17195009/10/17195309/10/17195809/10/17 2110 BP: (!) 147/99 (!) 140/99 129/88 129/83 BP Location: Left arm Left arm Right arm Patient Position: Lying Lying Lying Pulse: (!) 102 99 (!) 101 95 Resp: 18 18 18 16 Temp: 98.1 ?F (36.7 ?C) TempSrc: Oral SpO2: 96% 93% 93% 97% LABS: Lab Results Component Value Date WBC 14.5 (H) 09/10/2017 WBC 4.34 (L) 08/12/2011 HGB 14.2 09/10/2017 HGB 14.3 09/10/2017 HGB 15.1 08/12/2011 HCT 43.7 09/10/2017 MCV 86.4 08/12/2011 PLT 264 09/10/2017 PLT 214 08/12/2011 Lab Results Component Value Date NA 137 09/10/2017 NA 135 08/12/2011 K 4.7 09/10/2017 K 4.2 08/12/2011 CL 100 08/12/2011 BUN 21 09/10/2017 BUN 18 08/12/2011 CREATININE 1.3 09/10/2017 CREATININE 0.91 08/12/2011 No results found for: GLU No results found for: CALCIUM, PHOS No results found for: MG Lab Results Component Value Date AST 83 (H) 09/10/2017 ALT 72 (H) 09/10/2017 No components found for: ESR No results found for: CRP No results found for: PREALBUMIN PHYSICAL EXAM Gen: no acute distress; cervical collar in place RUE: Sensation intact to light touch to AIN, PIN, radial, median, axillary, and ulnar nerve distributions. Capillary refill time brisk, radial and ulnar pulses palpable. Cardinal hand movements intact. Motor intact to wrist flexors and extensors, biceps, and triceps. No open wounds or gross deformities. Compartments soft to palpation. No TTP. LUE: Sensation intact to light touch to AIN, PIN, radial, median, axillary, and ulnar nerve distributions. Capillary refill time brisk, radial and ulnar pulses palpable. Cardinal hand movements intact. Motor intact to wrist flexors and extensors, biceps, and triceps. No open wounds or gross deformities - small superficial abrasion noted over the medial aspect of the ulna at the midshaft level. Compartments soft to palpation. No TTP. Pelvis: No pain or gross motion with compression. No gross deformity noted. RLE: Sensation intact to light touch grossly. DP and PT pulses palpable. Capillary refill time brisk. Motor intact to EHL, FHL, TA, GS. No pain with log rolling of hip. Pain with right hip flexion referred to the right flank/abdominal area. No open wounds or gross deformities. No TTP. Compartments are soft to palpation. LLE: Sensation intact to light touch grossly. DP and PT pulses palpable. Capillary refill time brisk. Motor intact to EHL, FHL, TA, GS. No pain with log rolling of hip. No open wounds or gross deformities. No TTP. Compartments are soft to palpation SKELETAL SURVEY: No TTP to b/l clavicles, shoulder, upper arms, elbows, forearms, wrists, hands, pelvis, greater trochanters, femurs, knees, tibias, ankles, feet. IMAGING All imaging was reviewed. Pertinent orthopedic findings are noted below: There is widening of the pubic symphysis measuring 2.5 cm with diastasis of the bilateral SI joints. There is also a fracture of the posterior aspect of the left ilium with a nondisplaced fracture of the right superior pubic ramus ASSESSMENT/PLAN This is a 57 y.o. male with a pelvic ring injury consistent with APC pattern Plan for OR once medically cleared for symphseal plating with possible percutaneous SI screw fixation Patient does not require pelvic binder - this was removed in the ED Abx: per primary Pain control: per primary Weight bearing: NWB BLE Diet: OK to eat from ortho standpoint VTE prophylaxis per trauma and mechanical Thank you for the consult. Please feel free to call with questions. Will discuss w/ Dr. Figueroa Tobias, PGY4 09/10/17 Associated attestation - Melquiades Marti MD - 09/11/2017 8:57 AM EST Patient Name: Gabriel Khoury Admit Date: [id number] MR #: [id number] : 1960 Physicians: Cal Bah MD (Family); No ref. provider found (Referring); I have seen and examined this patient and concur with the consult note prepared by the resident staff. I have reviewed the relevant labs, studies, and admission notes. I have reviewed and agree with the documented history, exam, and plan of care, with the following additions and corrections: This is a 57-year-old man who presents to [facility] after falling 15 feet. He was working on a ladder at his house when he fell. He was transferred to an outside hospital, and after a considerable period of time was then transferred to [facility]. Patient complained of pain along his pelvis did not have neurologic complaints. On screening orthopedic examination the patient is in no acute distress. His upper extremities are grossly within the normal limits without wounds, deformity, tenderness or neurovascular findings. His pelvis does not have gross motion with compression. Both lower extremities are grossly within the normal limits without deformity, wounds, or neurovascular findings. Plain films from the outside hospital show a pubic symphysis diastases. The right sacroiliac joint appears to be widened. We have obtained inlet and outlet views here which confirm that. His CT scan done at the outside hospital appears to show right sacroiliac joint widening. There is an irregularity in the left sacroiliac joint as well. This gentleman will require stabilization of his pelvic ring. He has a mechanical valve, and he will need a cardiac evaluation as well as treatment for his INR which is near 2.0. I plan to place him on the operating room schedule for Thursday, September 14, 2017. We will plan open reduction and plate fixation of the pubic symphysis and percutaneous fixation of the sacroiliac joints. Patient appears to be relatively stable without a binder, and it would be appropriate to leave that off. He has no hemodynamic instability. Informed consent will be obtained. in this encounter (unrecognized sect ion and content) No Status Records FoundNo Status Records FoundNo Status Records FoundNo Status Records FoundNo Status Records FoundNo Status Records Found INFORMATION SOURCE (unrecogn ized section and content) DATE CREATED AUTHOR AUTHOR'S ORGANIZ ATION 04/09/2018 [facility] DATE CREATED AUTHOR AUTHOR'S ORGANIZ ATION 09/25/2018 [facility] DATE CREATED AUTHOR AUTHOR'S ORGANIZ ATION 03/14/2021 [facility] DATE CREATED AUTHOR AUTHOR'S ORGANIZ ATION 07/09/2023 [facility] DATE CREATED AUTHOR AUTHOR'S ORGANIZ ATION 10/22/2023 [facility] Reason for Visit (unrecogniz ed section and content) Status Reason Specialty Diagnoses / Procedures Referred By Contact Referred To Contact Authorized Orthopedics / Orthopedic Surgery Diagnoses Multiple fractures of pelvis with unstable disruption of pelvic ring, subsequent encounter for fracture with routine healing KP 2 wk PO ORIF pubic symphysis 09/14 Procedures VT POST-OP FOLLOW-UP VISIT VT OFFICE OUTPATIENT VISIT 25 MINUTES CHG X-RAY PELVIS 1/2 VW POST-OP [facility] [phone] [place] [address] [facility] [place] [address] [facility] [address] [place] [address] FOR RECORDS PERTAINING TO PATIENTS WHO ARE OR HAVE BEEN ENROLLED IN A CHEMICAL DEPENDENCY/SUBSTANCEABUSE PROGRAM, SOME INFORMATION MAY BE OMITTED. This clinical summary was aggregated from multiple sources. Caution should be exercised in using it in the provision of clinical care. This summary normalizes information from multiple sources, and as a consequence, information in this document may materially change the coding, format and clinical context of patient data. In addition, data may be omitted in some cases. CLINICAL DECISIONS SHOULD BE BASED ON THE PRIMARY CLINICAL RECORDS. [facility], [facility]. provides no warranty or guarantee of the accuracy or completeness of information in this document.
[2023-10-29 17:41] LABS: Absolute Lymphocyte Count 1.51 X10^3/uL (0.83-4.51); Absolute Neutrophil Count 3.8 X10^3/uL (2.0-7.7); Basophil# 0.04 X10^3/uL; Basophil% 0.7 % (0-1); Eosinophils% 1.7 % (0-5); Hematocrit 41.7 % (40-54); Hemoglobin 14.1 g/dL (13.0-16.5); Lymphocyte # 1.51 X10^3/ul (0.83-4.51); Lymphocyte % 25.3 % (19-41); Mean Corp Hgb Conc 33.8 g/dL (32-36); Mean Corpuscular Hgb 29.7 pg (27.0-32.0); Mean Corpuscular Volume 87.8 fL (80-94); Mean Platelet Vol. 8.9 fl (6.2-12.0); Monocyte# 0.54 X10^3/uL; Monocyte% 9.1 % (0-10); NRBC Flagged by Analyzer 0 % (0-5); Neutrophil # 3.76 X10^3/uL (2.7-7.7); Platelet Count 231 K/mm3 (150-450); RBC Distribution Width CV 13.4 % (11.6-14.6); RET-HE 33.2 pg (30-35); Red Blood Count 4.75 M/mm3 (4.6-6.2); Reticulocyte Count 1.78 % (0.5-1.5)
[2023-10-29 17:47] LABS: Microalbumin,Random Urine 22.7 mg/L (NO RANGE EST.); Microalbumin:Creatinine Ratio 19.4 mg/g CRE (<30 mg/g CRE)
[2023-10-29 17:55] LABS: BNP,B-Type NATRIURETIC PEPTIDE 77.8 pg/mL (0-100)
[2023-10-29 18:19] LABS: ALB/GLOB Ratio 1.1 RATIO (0.9-2.4); AST(SGOT) 29 U/L (15-37); Alanine Aminotransfer ALT/SGPT 49 U/L (16-61); Albumin, Serum 3.8 g/dL (3.2-5.0); Alkaline Phosphatase 78 U/L (45-117); Anion Gap 7 (5-15); BUN 22 mg/dL (7-18); BUN/Creat Ratio 18.3 RATIO (10-20); Calcium,Total 8.5 mg/dL (8.5-10.1); Chloride 109 mmol/L (98-107); EST Glomerular Filtration Rate 65 mL/min (>60); Est Glom Filt Rate - Afr Amer 78 mL/min (>60); Ferritin 71 ng/mL (26-388); Globulin 3.6 g/dL (2.2-4.2); Glucose 107 mg/dL (74-106); Iron 61 ug/dL (65-175); Iron Binding Capacity,Total 357 ug/dL (250-450); Protein, Total 7.4 g/dL (6.4-8.2); Sodium Level 139 mmol/L (136-145); Thyroid Stim Hormone (TSH) 1.07 uIU/mL (0.358-3.74)
== END | disposition home or self-care (01) ==
LOC: MFPLAB 16:14
PROVIDERS: PCP Family Medicine; Visit Provider Family Medicine
DX: E11.51 Type 2 diabetes mellitus with diabetic peripheral angiopathy without gangrene (principal); Z79.01 Long term (current) use of anticoagulants; I25.10 Atherosclerotic heart disease of native coronary artery without angina pectoris
CPT/HCPCS: 36415; 80053; 82043; 82570; 82728; 83540; 83550; 83880; 84443; 85025; 85045

== ENCOUNTER → 2023-12-31 | Outpatient (CLI) | payer OTHER, SELFPAY ==
--- NOTE | 2023-12-31 11:15 | RAD_ITS ---
STUDY: X-RAY CHEST REASON FOR EXAM: Male, 63 years old. Coronary artery disease. TECHNIQUE: Frontal and lateral views of the chest. COMPARISON: None. FINDINGS: Mild hyperinflation. There is no demonstrated pleural abnormality. Borderline cardiomegaly with sternotomy wires, valve replacement and dual lead cardiac pacer. Normal mediastinum and alison. Prominent central pulmonary arteries. Aortic tortuosity with calcification. Diffuse thoracic spondylosis. Multiple posterior right healed rib fractures. No abnormality of the visualized soft tissue structures of the upper abdomen. RAD/Chest PA and Lateral IMPRESSION: Borderline cardiomegaly, postsurgical changes and no acute or active cardiopulmonary disease. Electronically Signed: Bright Tenorio MD at 12:47 EDT ,
[2023-12-31 12:14] LABS: Absolute Lymphocyte Count 1.12 X10^3/uL (0.83-4.51); Absolute Neutrophil Count 3.6 X10^3/uL (2.0-7.7); Basophil# 0.02 X10^3/uL; Basophil% 0.4 % (0-1); Eosinophil# 0.11 X10^3/uL; Eosinophils% 2.1 % (0-5); Hematocrit 41.3 % (40-54); Lymphocyte # 1.12 X10^3/ul (0.83-4.51); Mean Corp Hgb Conc 33.9 g/dL (32-36); Mean Corpuscular Hgb 29.4 pg (27.0-32.0); Mean Corpuscular Volume 86.6 fL (80-94); Mean Platelet Vol. 9.2 fl (6.2-12.0); Monocyte# 0.47 X10^3/uL; Monocyte% 8.8 % (0-10); NRBC Flagged by Analyzer 0 % (0-5); Neutrophil % 67.3 % (47-70); Platelet Count 236 K/mm3 (150-450); RBC Distribution Width CV 13.2 % (11.6-14.6); RBC Distribution Width SD 41.3 fl (35.1-43.9); Red Blood Count 4.77 M/mm3 (4.6-6.2); White Blood Count 5.3 K/mm3 (4.4-11.0)
[2023-12-31 13:24] LABS: AST(SGOT) 17 U/L (15-37); Alanine Aminotransfer ALT/SGPT 24 U/L (16-61); Albumin, Serum 3.6 g/dL (3.2-5.0); Alkaline Phosphatase 71 U/L (45-117); Anion Gap 9 (5-15); BUN 18 mg/dL (7-18); BUN/Creat Ratio 14.5 RATIO (10-20); Calcium,Total 8.8 mg/dL (8.5-10.1); Chloride 105 mmol/L (98-107); Creatinine, Serum 1.24 mg/dL (0.70-1.30); EST Glomerular Filtration Rate 62 mL/min (>60); Est Glom Filt Rate - Afr Amer 75 mL/min (>60); Globulin 3.6 g/dL (2.2-4.2); Glucose 207 mg/dL (74-106); Potassium 4.1 mmol/L (3.5-5.1); Protein, Total 7.2 g/dL (6.4-8.2); Sodium Level 137 mmol/L (136-145)
[2023-12-31 14:38] LABS: Hemoglobin A1c 7.9 % (3.8-5.6)
--- OUTSIDE RECORDS SUMMARY | 2023-12-31 19:47 | XMS RPT_ITS | CCD ---
Author Name Unknown Address [address] [place] [address] [facility] Team Providers Care Hazardous Materials Analyst Name Role Phone Olvin Cal Miles Unavailable [phone] Melyssa Pope Unavailable Unavailable Melyssa Pope Unavailable Unavailable Chase Sethi Unavailable Unavailable Chase Sethi Unavailable Unavailable EMERGENCY, TRIAGE PROTOCOL Unavailable Unava ilable EMERGENCY, TRIAGE PROTOCOL Unavailable Unava ilable BAH, CLA MILES Unavailable Unavailable EMERGENCY, TRIAGE PROTOCOL Unavailable [...] Unavailable BAH, CAL MILES Unavailable Unavailable KYLE GRACE Unavailable Unavailable MARTI, MLEQUIADES LEANDRA Unavailable Unavailable MARTI, MELQUIADES LEANDRA Unavailable [...] CAL A Consulting Unavailable SADAF GRAHAM DR Primary Care Unavailable SADAF GRAHAM DR Attending Unavailable SADAF GRAHAM DR Admitting Unavailable PROVIDER, [...] CAL A Attending Unavailable BAH, CAL A Primary Care Unavailable BAH, CAL A Admitting Unavailable BAH, CAL A Consulting Unavailable PROVIDER, UNKNOWN Consulting Unavailable BAH, CAL A Attending Unavailable BAH, CAL A Primary Care Unavailable BAH, CAL A Consulting Unavailable BAH, CAL A Admitting Unavailable PROVIDER, UNKNOWN Consulting Unavailable BAH, CAL A Attending Unavailable BAH, CAL A Primary Care Unavailable BAH, CAL A Consulting Unavailable BAH, CAL A Admitting Unavailable PROVIDER, UNKNOWN Consulting Unavailable BAH, [...] Unavailable BAH, CAL A Primary Care Unavailable LUIS LINDQUIST PROVIDER RELATIONS REPRESENTATIVE%C Referring Unavailable PROVIDER, UNKNOWN Consulting Unavailable CHASE DUMAS DO Attending Unavailable CHASE DUMAS DO Admitting Unavailable BAH, CAL A Referring Unavailable BAH, CAL A Consulting Unavailable CHASE DUMAS DO Primary Care Unavailable PROVIDER, UNKNOWN Consulting Unavailable LOVIN, CAL A Consulting Unavailable SADAF GRAHAM DR Admitting Unavailable SADAF GRAHAM DR Primary Care Unavailable SADAF GRAHAM DR Attending Unavailable PROVIDER, UNKNOWN Consulting Unavailable CAL BAH Consulting Unavailable SADAF GRAHAM DR Admitting Unavailable SADAF GRAHAM DR Primary Care Unavailable SADAF GRHAAM DR Attending Unavailable PROVIDER, UNKNOWN Consulting Unavailable Medications Current [...] Active docusate sodium 50 mg / sennosides, nursing home 8.6 mg oral tablet (5 sources) Start: [...] heart disease (10 sources) Coronary arteriosclerosis in [place] artery; Translations: [Ischemic cardiomyopathy] Onset: 09-11-2017 09-11-2017 [...] fractures of pelvis with disruption of pelvic chemehuevi Episodic Unclassified (3 sources) Patient encounter status; [...] fractures of pelvis with disruption of pelvic chemehuevi] Onset: 09-10-2017 09-10-2017 Episodic Other fractures (2 [...] fracture with routine healing] Onset: 09-28-2017 Episodic Superficial injury; contusion (3 sources) Contusion of right shoulder, initial encounter; Translations: [Contusion of right shoulder, initial encounter] Onset: 09-17-2023 Episodic Results Test Name Value Interpretation Reference Range Facil ity Vital Signs Date Time Vital Sign Value Performing Clinician Facility 08-18-2018 08:35-0400 BMI (Body Mass Index) 35.57 kg/m2 [facility] 08-18-2018 08:35-0400 Body Temperature 98.49 [degF] [facility] 08-18-2018 08:35-0400 Height 180.3 cm [facility] 08-18-2018 08:35-0400 Pulse (Heart Rate) 64 /min [facility] 08-18-2018 08:35-0400 Weight 115.67 kg [facility] 02-03-2018 08:59-0400 BMI (Body Mass Index) 35.57 kg/m2 [facility] 02-03-2018 08:59-0400 Body Temperature 98.2 [degF] [facility] 02-03-2018 08:59-0400 Height 180.3 cm [facility] 02-03-2018 08:59-0400 Pulse (Heart Rate) 62 /min [facility] 02-03-2018 08:59-0400 Weight 115.67 kg [facility] 11-11-2017 09:08-0500 BMI (Body Mass Index) 35.57 kg/m2 [facility] Work Phone: 11-11-2017 09:08-0500 Body Temperature 98.91 [degF] [facility] Work Phone: 11-11-2017 09:08-0500 Height 180.3 cm [facility] Work Phone: 11-11-2017 09:08-0500 Pulse (Heart Rate) 91 /min [facility] Work Phone: 11-11-2017 09:08-0500 Weight 115.67 kg [facility] Work Phone: 09-28-2017 08:38-0500 BMI (Body Mass Index) 35.57 kg/m2 [facility] Work Phone: 09-28-2017 08:38-0500 Body Temperature 97 [degF] [facility] Work Phone: 09-28-2017 08:38-0500 Height 180.3 cm [facility] Work Phone: 09-28-2017 08:38-0500 Pulse (Heart Rate) 88 /min [facility] Work Phone: 09-28-2017 08:38-0500 Weight 115.67 kg [facility] Work Phone: 09-22-2017 11:39-0500 Body Temperature 97.9 [degF] Woodrow Farrar [facility] Work Phone: 09-22-2017 11:39-0500 BP Diastolic 63 mm[Hg] Woodrow Farrar [facility] Work Phone: 09-22-2017 11:39-0500 BP Systolic 106 mm[Hg] Woodrow Farrar [facility] Work Phone: 09-22-2017 11:39-0500 Pulse (Heart Rate) 79 /min Woodrow Farrar [facility] Work Phone: 09-22-2017 11:39-0500 Pulse Oximetry 93 % Woodrow Farrar [facility] Work Phone: 09-22-2017 11:39-0500 Respiratory Rate 18 /min Woodrow Farrar [facility] Work Phone: 09-15-2017 11:00-0500 BMI (Body Mass Index) 35.61 kg/m2 Woodrow Farrar [facility] Work Phone: 09-15-2017 11:00-0500 Weight 115.8 kg Woodrow Farrar [facility] Work Phone: 09-14-2017 11:04-0500 Height 180.3 cm Woodrow Farrar [facility] Work Phone: Encounters Encounter Date Encounter Type Care Provider Facility Start: 12-10-2023 End: 12-10-[address] [facility] Start: 10-20-2023 End: 10-20-[address] [facility] Start: 10-20-2023 ambulatory CAL A [facility] Start: 09-25-2023 End: 09-25-[address] [facility] Start: 09-17-2023 End: 10-16-[address] [facility] Start: 08-20-2023 End: 08-20-[address] [facility] Start: 07-28-2023 End: 07-28-2023 Emergency department patient visit CHASE CHARLES [facility] Start: 07-07-2023 End: 07-07-[address] [facility] Start: 06-25-2023 End: 06-25-[address] [facility] Start: 04-23-2023 End: 04-23-[address] [facility] Start: 03-12-2023 End: 03-12-[address] [facility] Start: 02-12-2023 End: 02-12-[address] [facility] Start: 01-30-2023 End: 01-30-[address] [facility] Start: 12-19-2020 End: 12-19-2020 Orders Only Torie Crump Work Phone: [facility] Start: 08-18-2018 End: 08-19-2018 Patient encounter procedure MELQUIADES MARTI [facility] Start: 08-18-2018 End: 08-18-2018 Office outpatient visit 15 minutes Melquiades Marti Work Phone: [facility] Procedures Date Procedure Procedure Detail Performing Clinician Start: 08-18-2018 Follow-up visit Follow-up CAL SM ITH Start: 09-14-2017 End: 09-14-2017 PUBIC SYMPHYSIS OPEN REDUCTION INTERNAL FIXATION PELVIS PERCUTANEOUS PINNING SI JOINT Melquiades Marti Work Phone: Start: 09-11-2017 End: 09-11-2017 Echo tthrc r-t 2d w/wom-mode compl spec&colr d Adair Alvaardo Work Phone: Plan of Treatment Date Care Activity Detail Author Start: 01-11-2023 Tetanus vaccination [facility] Start: 06-19-2020 Influenza vaccination given Sequential Influenza Vaccine (#1) [facility] Start: 08-18-2018 End: 08-18-2018 Ambulatory 08/18/2018 Office Visit Orthopedic Surgery Melquiades Marti MD [address] [address] [phone] [facility] Start: 06-19-2018 Influenza vaccination SEQUENTIAL INFLUENZA VACCINE (#1) [facility] Start: 02-03-2018 Ambulatory 02/03/2018 Office Visit Orthopedic Surgery Melquiades Marti MD [address] [address] [phone] [facility] Start: 12-23-2017 Ambulatory 12/23/2017 Office Visit Orthopedic Surgery Melquiades Marti MD [address] [address] [phone] [facility] Start: 11-11-2017 Ambulatory 11/11/2017 Office Visit Orthopedic Surgery Melquiades Marti MD [address] [address] [phone] [facility] Start: 09-28-2017 Ambulatory 09/28/2017 Office Visit Orthopedic Surgery Lorri Sibley PA-C [address] [address] [phone] [facility] Start: 06-19-2017 Influenza vaccination SEQUENTIAL INFLUENZA VACCINE (#1) [facility] Work Phone: Start: 2009 Administration of herpes zoster vaccine Zoster Vaccines (1 of 2) [facility] Start: 2009 Screening for malignant neoplasm of colon [facility] Start: 1977 Hepatitis C antibody, confirmatory test Hepatitis C Screening [facility] Start: 1975 COVID-19 Vaccine (1 of 2) COVID-19 Vaccine (1 of 2) [facility] Start: 1974 HIV screening HIV Screening [facility] Start: 1971 Adolescent depression screening assessment Depression Screening (PHQ9) [facility] Start: 1962 History and physical examination, annual for health maintenance Wellness Visit [facility] Start: 1959 Prostate specific antigen measurement PSA Level [facility] Start: 1959 HEPATITIS C SCREENING HEPATITIS C SCREENING [facility] Work Phone: Start: 1959 Screening colonoscopy COLONOSCOPY [facility] Work Phone: Start: 1959 Tetanus vaccination TETANUS EVERY 10 YR [facility] Work Phone: End: 09-10-2017 ED Fast Scan ED Fast Scan STAT One time imaging One time imaging for 1 Occurrences starting 09/10/2017 until 09/10/2017 [facility] Work Phone: ED Fast Scan ED Fast Scan STAT 09/10/2017 7:45 PM EST [facility] Work Phone: Payers Date Payer Category Payer Unknown 2017 Unknown [id number] 2017 Unknown COMMERCIAL COMME RCIAL MISCELLANEOUS [id number] 2017-Present [id number] 1959 Unknown [id number] 2..840.1.199429.3.579.2. 1959 Unknown [id number] 2.16.840.1.305750.3.579.2. 3 1959 Unknown [id number] 2.16.840.1.820004.3.579.2. 1959 Unknown [id number] 2.16.840.1.085094.3.579.2. 3 1959 Unknown [id number] 2.16.840.1.253671.3.579.2. 1959 Unknown [id number] 2.16.840.1.104748.3.579.2. 903 1959 Unknown [id number] 2.16.840.1.607782.3.579.2. 1959 Unknown [id number] 2.16.840.1.880410.3.579.2. 1959 Unknown [id number] 2.16.840.1.543164.3.579.2. 1959 Unknown [id number] 2.16840.1.453179.3.579.2. 1959 Unknown [id number] 2.840.1.813459.3.579.2. 1959 Unknown [id number] 2.840.1.022487.3.579.2. 1959 Unknown [id number] 2.840.1.811422.3.579.2. 1959 Unknown [id number] 2.840.1.103001.3.579.2. 1959 Unknown [id number] 2.840.1.876752.3.579.2. 1959 Unknown [id number] 2.840.1.065405.3.579.2. 1959 Unknown [id number] 2.840.1.388755.3.579.2. 1959 Unknown [id number] 2.16840.1.226326.3.579.2. 1959 Unknown [id number] 2.840.1.253714.3.579.2. 65 1959 Unknown [id number] 2.840.1.539022.3.579.2. 1959 Unknown [id number] 2.16840.1.164402.3.579.2. 651 1959 Unknown [id number] 2.16.840.1.325105.3.579.2. 651 Unknown [id number] 2.16.840.1.770980.3.249.13 Unknown [id number] Worker's Compensation [id number] Worker's Compensation [id number] Social History Date Type Detail Facility Start: 09-15-2017 Tobacco smoking stat [facility] Former smoker [facility] Work Phone: End: 02-08-2001 History of tobacco use Current smoker [facility] Work Phone: End: 02-08-2001 History of tobacco use Cigarette Smoker [facility] Work Phone: Sex Assigned At Not on file [facility] Work Phone: Start: 09-25-2017 Tobacco smoking stat [facility] Unknown if ever smoked [facility] Work Phone: Start: 09-15-2017 Tobacco use and exposure Former user [facility] Start: 09-15-2017 Alcohol intake Current non-dr hospitality recruiter of alcohol (finding) [facility] Medical Equipment Procedure Code Equipment Code Equipment Origin al Text Equipment Identifier Dates Plate 3.5mm 6hl Pubic Symphysis Incl 2 Dcphl - [id number] Start: 09-14-2017 Screw 7.3 X 115m m Thai 32mm Thrd - [id number] Start: 09-14-2017 Screw 3.5 X 36mm Cortex Self-Tap - [id number] Start: 09-14-2017 Screw 3.5x38mm Cortex Self-Tap - [id number] Start: 09-14-2017 Screw 3.5 X 40mm Cortex Self-Tap - [id number] Start: 09-14-2017 Screw 3.5 X 32mm Cortex Self-Tap - [id number] Start: 09-14-2017 Screw 3.5 X 44mm Cortex Self-Tap - [id number] Start: 09-14-2017 Screw 3.5x34mm Cortex Self-Tap - [id number] Start: 09-14-2017 Screw 7.3 X 75mm Thai 32mm Thrd - [id number] Start: 09-14-2017 Washer 13mm - [id number] Start: 09-14-2017 Plate 3.5mm 6hl Pubic Symphysis Incl 2 Dcphl - [id number] Start: 09-14-2017 Screw 7.3 X 115m m Thai 32mm Thrd - [id number] Start: 09-14-2017 Screw 3.5 X 36mm Cortex Self-Tap - [id number] Start: 09-14-2017 Screw 3.5x38mm Cortex Self-Tap - [id number] Start: 09-14-2017 Screw 3.5 X 40mm Cortex Self-Tap - [id number] Start: 09-14-2017 Screw 3.5 X 32mm Cortex Self-Tap - [id number] Start: 09-14-2017 Screw 3.5 X 44mm Cortex Self-Tap - [id number] Start: 09-14-2017 Screw 3.5x34mm Cortex Self-Tap - [id number] Start: 09-14-2017 Screw 7.3 X 75mm Thai 32mm Thrd - [id number] Start: 09-14-2017 Washer 13mm - [id number] Start: 09-14-2017 Plate 3.5mm 6hl Pubic Symphysis Incl 2 Dcphl - [id number] Start: 09-14-2017 Screw 7.3 X 115m m Thai 32mm Thrd - [id number] Start: 09-14-2017 Screw 3.5 X 36mm Cortex Self-Tap - [id number] Start: 09-14-2017 Screw 3.5x38mm Cortex Self-Tap - [id number] Start: 09-14-2017 Screw 3.5 X 40mm Cortex Self-Tap - [id number] Start: 09-14-2017 Screw 3.5 X 32mm Cortex Self-Tap - [id number] Start: 09-14-2017 Screw 3.5 X 44mm Cortex Self-Tap - [id number] Start: 09-14-2017 Screw 3.5x34mm Cortex Self-Tap - [id number] Start: 09-14-2017 Screw 7.3 X 75mm Thai 32mm Thrd - [id number] Start: 09-14-2017 Washer 13mm - [id number] Start: 09-14-2017 Plate 3.5mm 6hl Pubic Symphysis Incl 2 Dcphl - [id number] Start: 09-14-2017 Screw 7.3 X 115m m Thai 32mm Thrd - [id number] Start: 09-14-2017 Screw 3.5 X 36mm Cortex Self-Tap - [id number] Start: 09-14-2017 Screw 3.5x38mm Cortex Self-Tap - [id number] Start: 09-14-2017 Screw 3.5 X 40mm Cortex Self-Tap - [id number] Start: 09-14-2017 Screw 3.5 X 32mm Cortex Self-Tap - [id number] Start: 09-14-2017 Screw 3.5 X 44mm Cortex Self-Tap - [id number] Start: 09-14-2017 Screw 3.5x34mm Cortex Self-Tap - [id number] Start: 09-14-2017 Screw 7.3 X 75mm Thai 32mm Thrd - [id number] Start: 09-14-2017 Washer 13mm - [id number] Start: 09-14-2017 Plate 3.5mm 6hl Pubic Symphysis Incl 2 Dcphl - [id number] Start: 09-14-2017 Screw 7.3 X 115m m Thai 32mm Thrd - [id number] Start: 09-14-2017 Screw 3.5 X 36mm Cortex Self-Tap - [id number] Start: 09-14-2017 Screw 3.5x38mm Cortex Self-Tap - [id number] Start: 09-14-2017 Screw 3.5 X 40mm Cortex Self-Tap - [id number] Start: 09-14-2017 Screw 3.5 X 32mm Cortex Self-Tap - [id number] Start: 09-14-2017 Screw 3.5 X 44mm Cortex Self-Tap - [id number] Start: 09-14-2017 Screw 3.5x34mm Cortex Self-Tap - [id number] Start: 09-14-2017 Screw 7.3 X 75mm Thai 32mm Thrd - [id number] Start: 09-14-2017 Washer 13mm - [id number] Start: 09-14-2017 Plate 3.5mm 6hl Pubic Symphysis Incl 2 Dcphl - [id number] Start: 09-14-2017 Screw 7.3 X 115m m Thai 32mm Thrd - [id number] Start: 09-14-2017 Screw 3.5 X 36mm Cortex Self-Tap - [id number] Start: 09-14-2017 Screw 3.5x38mm Cortex Self-Tap - [id number] Start: 09-14-2017 Screw 3.5 X 40mm Cortex Self-Tap - [id number] Start: 09-14-2017 Screw 3.5 X 32mm Cortex Self-Tap - [id number] Start: 09-14-2017 Screw 3.5 X 44mm Cortex Self-Tap - [id number] Start: 09-14-2017 Screw 3.5x34mm Cortex Self-Tap - [id number] Start: 09-14-2017 Screw 7.3 X 75mm Thai 32mm Thrd - [id number] Start: 09-14-2017 Washer 13mm - [id number] Start: 09-14-2017 Plate 3.5mm 6hl Pubic Symphysis Incl 2 Dcphl - [id number] Start: 09-14-2017 Screw 7.3 X 115m m Thai 32mm Thrd - [id number] Start: 09-14-2017 Screw 3.5 X 36mm Cortex Self-Tap - [id number] Start: 09-14-2017 Screw 3.5x38mm Cortex Self-Tap - [id number] Start: 09-14-2017 Screw 3.5 X 40mm Cortex Self-Tap - [id number] Start: 09-14-2017 Screw 3.5 X 32mm Cortex Self-Tap - [id number] Start: 09-14-2017 Screw 3.5 X 44mm Cortex Self-Tap - [id number] Start: 09-14-2017 Screw 3.5x34mm Cortex Self-Tap - [id number] Start: 09-14-2017 Screw 7.3 X 75mm Thai 32mm Thrd - [id number] Start: 09-14-2017 Washer 13mm - [id number] Start: 09-14-2017 Plate 3.5mm 6hl Pubic Symphysis Incl 2 Dcphl - [id number] Start: 09-14-2017 Screw 7.3 X 115m m Thai 32mm Thrd - [id number] Start: 09-14-2017 Screw 3.5 X 36mm Cortex Self-Tap - [id number] Start: 09-14-2017 Screw 3.5x38mm Cortex Self-Tap - [id number] Start: 09-14-2017 Screw 3.5 X 40mm Cortex Self-Tap - [id number] Start: 09-14-2017 Screw 3.5 X 32mm Cortex Self-Tap - [id number] Start: 09-14-2017 Screw 3.5 X 44mm Cortex Self-Tap - [id number] Start: 09-14-2017 Screw 3.5x34mm Cortex Self-Tap - [id number] Start: 09-14-2017 Screw 7.3 X 75mm Thai 32mm Thrd - [id number] Start: 09-14-2017 Washer 13mm - [id number] Start: 09-14-2017 Plate 3.5mm 6hl Pubic Symphysis Incl 2 Dcphl - [id number] Start: 09-14-2017 Screw 7.3 X 115m m Thai 32mm Thrd - [id number] Start: 09-14-2017 Screw 3.5 X 36mm Cortex Self-Tap - [id number] Start: 09-14-2017 Screw 3.5x38mm Cortex Self-Tap - [id number] Start: 09-14-2017 Screw 3.5 X 40mm Cortex Self-Tap - [id number] Start: 09-14-2017 Screw 3.5 X 32mm Cortex Self-Tap - [id number] Start: 09-14-2017 Screw 3.5 X 44mm Cortex Self-Tap - [id number] Start: 09-14-2017 Screw 3.5x34mm Cortex Self-Tap - [id number] Start: 09-14-2017 Screw 7.3 X 75mm Thai 32mm Thrd - [id number] Start: 09-14-2017 Washer 13mm - [id number] Start: 09-14-2017 Assessments Diagnosis Multiple closed fractures of pelvis with unstable disruption of pelvic ring with routine healing, subsequent encounter - Primary Diagnosis Multiple fractures of pelvis with unstable disruption of pelvic chemehuevi with routine healing Diagnosis Multiple fractures of pelvis with unstable disruption of pelvic chemehuevi with routine healing Diagnosis Multiple closed fractures [...] initial encounter - Pr imary Pelvis fracture (HCC) Unspecified closed fracture of pelvis Coronary artery disease invo lving [place] coronary artery of [place] heart without angina pectoris H/O mechanical aortic valve replacement PAF (paroxysmal atrial fibri llation) (HCC) Atrial fibrillation Preop cardiovascular exam Pre-operative cardiovascular examination History of pacemaker Diagnosis Multiple closed fractures of pelvis with unstable disruption of pelvic ring with routine healing, subsequent encounter - Primary Advance Directives No Advanced Directives Records FoundDocuments on File Type Date Recorded Patient Controller Operations And Hr Manager Expl anation Power of Mortgage Protection Specialist 11/11/2017 9:10 AM Latest Code Status on File Code Status Date Activated Date Inactivated Comments Full Code - Unverified 09/10/2017 11:11 PM 09/22/2017 3 :00 PM Discharge Instructions * Huang Gutierrez, RACHEL - 09/22/2017 Formatting of this note may be different from the original. MECHANISM OF INJURY: Fall LOC (yes/no?): No Anticoagulant / Anti-platelet Rx? (for what dx?): Coumadin, mechanical aortic valve (2000, [facility]) INJURIES: 1. Pelvic ring fracture involving bilateral [...] Trauma and Acute Care Surgery Office: [address] [facility] [facility] 7th Floor, [address] [place] [address] Hours: Thursday-Thursday, 8am to 4pm. If you need to speak with the trauma/surgery team after hours, please call and ask to speak with the Trauma Nurse Practitioner auto service station attendant. Parking: You may park in the Green Garage, which is attached to the front of the hospital. From within the garage, take the C elevators up to the 7th Floor. The office is in [address]. Pipe Supervisor: If you choose warehouse selector parking, please do so at the Main Hospital entrance. Go up to the secondfloor. Follow signs for the Bone and Joint Building. Alf across the bridge, take the elevators to your right up to the 7th floor. You may also enter from the [facility] entrance, located at the corner of [facility]. You may also enter from the [facility] entrance, located at the corner of [facility]. Take the D elevators up to the 7th Floor. Use this entrance if you are arriving by ambulance or wheelchair van. Garage or Pipe Supervisor parking is free with a voucher, which you will receive at your appointment. PRIMARY CARE PHYSICIAN FOLLOW UP Call and schedule a post Trauma follow up appointment with your primary care provider. If you need assistance with obtaining a primary care physician please call: [phone] MANAGING YOUR PAIN AT HOME Pain is [...] taking a prescription pain medicine, take an doxi-sdq-qrozkyw medicine as directed such as Tylenol (Acetaminophen) [...] drive, operate heavy machinery, ride motorcycles or ATV's, drink alcohol, or take other medications that [...] our office will be with our Physician Meat And Seafood Clerk who works in coordination with Dr. Marti. Your Ortho Trauma follow up appointment date & time Lorri Sibley PA-C September 28, 2017 at 10:15 If you do not have a primary care physician please call [facility] Physician Referral Line [phone] for assistance. Per physicians, radiology and clinical staff request, all patients being transported from an outlying facility (assisted living, [facility], rehab, ect.) that have a non-weight bearing [...] taking a prescription pain medicine, take an ftzt-rwk-eofbwyc medicine as directed such as Tylenol (Acetaminophen) [...] (unrecog nized section and content) Narrative:Referral from [facility]. Patient was replacing shingles today when he [...] Imaging, Testing: Patient will follow up with [facility] Follow-up Appointments: The patient was instructed to contact their non- [facility] cardiovascular provider to arrange followup. Additional Instructions Reviewed with Patient and/or Family: Compliance with follow-up. Compliance with medications. He will need outpatient CT of chest due to aortic dilatation. He will follow up with primary occupational therapist's assistant for upgrade of pacemaker to biventricular device Cardiology Progress Note Assessment/Plan: Cardiovascular and Mediastinum Coronary artery disease involving [place] coronary artery of [place] heart without angina pectoris Assessment & Plan History of GRACIE to OM1 in 2013. He follows with cardiology at [facility] and was last seen in May [...] had recurrent dilatation, 4.8cm by CT at [facility] in Jul 2016. --Agree with lovenox [...] [facility] [facility]. PAF (paroxysmal atrial fibrillation) (HCC) Assessment & Plan By history he has a dual chamber pacemaker. Last remote device check on 08/15/17 through [facility] showed multiple short bursts of PAF [...] on way down. Pt originally seen at [place], transfered here. Arrives with pelvic binder in [...] -- 83 15 122/69 93 -- -- 11/29/17 0600 -- 85 15 156/69 94 Nasal [...] 32.6 (H) Calcium 8.3 (L) mg/dL GLUCOSE: [phone] 09/16 : PT 15.8- INR 1.3 IMAGING: [...] Cardiovascular and Mediastinum Coronary artery disease involving [place] coronary artery of [place] heart without angina pectoris Assessment & Plan History of GRACIE to OM1 in 2013. He reports exertional chest discomfort prior to intervention. He follows with cardiology at [facility] and was last seen in May 2017. At that time he had no complaints of angina. Per notes, he has been unable to tolerate statins previously. --Resume ASA if ok with surgical team --No statin due to previous intolerance. Consider alternate therapy as an outpatient. H/O mechanical aortic valve replacement Assessment & Plan In 2000 with FLENS mechanical valve #29. 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 --warfarin on hold. Agree with IV heparin drip and resume heparin drip post-operatively when safe from a surgical standpoint --Echo completed this admission shows mild LV dysfunction with an apical WMA, stable from prior and well-seated mechanical aortic valve replacement with stable gradients. He has moderate to severe septal hypertrophy without LVOT obstruction PAF (paroxysmal atrial fibrillation) ([facility]) Assessment & Plan By history. He has a dual chamber pacemaker in place for sick sinus syndrome. Last remote device check on 08/15/17 through [facility] showed multiple short bursts of PAF 5-6 seconds in duration. --He is already anticoagulated due to mechanical aortic valve --Brief, self-limiting episodes. No indication to add anti-arrhythmic therapy at this time. Sick sinus syndrome ([facility]) Assessment & Plan Dual chamber pacemaker in [...] unstable disruption of pelvic ring, initial encounter ([facility]) [S32.811A] Postoperative Diagnosis: Same Procedure: Open reduction and internal fixation of pubic symphysis (CPT 26814) Percutaneous screw fixation right sacroiliac joint (CPT 56383) Percutaneous screw fixation left sacroiliac joint (CPT 88335) ################################################################################ ##### ##################################### TRAUMA NOTE: 09/12: MECHANISM [...] -consent signed ################################################################################ ##### ######## CARDIO NOTE: 09/11: Cardiovascular and Mediastinum Coronary artery disease involving [place] coronary artery of [place] heart without angina pectoris Assessment & Plan History of GRACIE to OM1 in 2013. He reports exertional chest discomfort prior to intervention. He follows with cardiology at [facility] and was last seen in May 2017. At that time he had no complaints of angina. Per notes, he has been unable to tolerate statins previously. --Resume ASA if ok with surgical team --No statin due to previous intolerance. Consider alternate therapy as an outpatient. H/O mechanical aortic valve replacement Assessment & Plan In 2000 with FLENS mechanical valve #29. 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 --warfarin on hold. [...] Last remote device check on 08/15/17 through [facility] showed multiple short bursts of PAF [...] is a 57-year-old man who presents to [place] after falling 15 feet. He was working on a ladder at his house when he fell. He was transferred to an outside hospital, and after a considerable period of time was then transferred to [place]. Patient complained of pain along his pelvis [...] original. OPERATIVE REPORT 09/14/2017 3:15 PM Gabriel Jones Mendoza Preoperative Diagnosis: Multiple closed fractures of pelvis with unstable disruption of pelvic ring, initial encounter ([facility]) [S32.811A] Postoperative Diagnosis: Same Procedure: Open reduction and internal fixation of pubic symphysis (CPT 59106) Percutaneous screw fixation right sacroiliac joint (CPT 63325) Percutaneous screw fixation left sacroiliac joint (CPT 12009) Surgeon:Melquiades Marti Meat And Seafood Clerk surgeons: Surgeon(s): MD Bright Sultana MD Anesthesiologist: Asuncion Hebert MD Implants: Implant Name Type Inv. Item Serial No. Wood Borer Lot No. LRB No. Used PLATE 3.5MM 6HL PUBIC SYMPHYSIS INCL 2 DCPHL - [id number] PLATE 3.5MM 6HL PUBIC SYMPHYSIS INCL 2 DCPHL SYNTHES LT N/A 1 SCREW 3.5 X 36MM CORTEX SELF-TAP - [id number] SCREW 3.5 X 36MM CORTEX SELF-TAP SYNTHES LT N/A 1 SCREW 3.5X38MM CORTEX SELF-TAP - [id number] SCREW 3.5X38MM CORTEX SELF-TAP SYNTHES LT N/A 1 SCREW 3.5 X 40MM CORTEX SELF-TAP - [id number] SCREW 3.5 X 40MM CORTEX SELF-TAP SYNTHES LT N/A 1 SCREW 3.5 X 32MM CORTEX SELF-TAP - [id number] SCREW 3.5 X 32MM CORTEX SELF-TAP SYNTHES LT N/A 1 SCREW 3.5 X 44MM CORTEX SELF-TAP - [id number] SCREW 3.5 X 44MM CORTEX SELF-TAP SYNTHES LT N/A 1 SCREW 3.5X34MM CORTEX SELF-TAP - [id number] SCREW 3.5X34MM CORTEX SELF-TAP SYNTHES LT N/A 1 SCREW 7.3 X 75MM THAI 32MM THRD - [id number] SCREW 7.3 X 75MM THAI 32MM THRD SYNTHES LT N/A 1 WASHER 13MM - [id number] WASHER 13MM SYNTHES LT N/A 2 SCREW 7.3 X 115MM THAI 32MM THRD - [id number] SCREW 7.3 X 115MM THAI 32MM THRD [...] 1960 (57 y.o.) Date of Service: 09/14/2017 CSN: [id number] Procedure(s): PUBIC SYMPHYSIS OPEN REDUCTION INTERNAL FIXATION PELVIS PERCUTANEOUS PINNING SI JOINT Pre-Operative Diagnoses: * PELVIC FRACTURE Post-Operative Diagnoses: * Same as Pre-Op Diagnosis * Multiple closed fractures of pelvis with unstable disruption of pelvic ring, initial encounter ([facility]) [S32.815B] Surgeon(s) and Role: * Melquiades Marti MD - Primary * Bright Aguero MD - Fellow Anesthesiologist: Asuncion Hebert MD ENGLISH FACULTY MEMBER: Rodrigo Lin CRNA Snaker Tractor Driver: Maylin Curtis RN President And Chief Commercial Officer: Frances Jimenez, TECHNOLOGIST Relief Snaker Tractor Driver: Irving Huang RN; Kristen Kerns RN Relief Scrub: Maureen Lucero Scrub Person: Maylin Curtis RN; Gabriel Mendez [...] Implant Name Type Inv. Item Serial No. Wood Borer Lot No. LRB No. Used Action PLATE 3.5MM 6HL PUBIC SYMPHYSIS INCL 2 DCPHL - [id number] PLATE 3.5MM 6HL PUBIC SYMPHYSIS INCL 2 DCPHL SYNTHES LT N/A 1 Implanted SCREW 3.5 X 36MM CORTEX SELF-TAP - [id number] SCREW 3.5 X 36MM CORTEX SELF-TAP SYNTHES LT N/A 1 Implanted SCREW 3.5X38MM CORTEX SELF-TAP - [id number] SCREW 3.5X38MM CORTEX SELF-TAP SYNTHES LT N/A 1 Implanted SCREW 3.5 X 40MM CORTEX SELF-TAP - [id number] SCREW 3.5 X 40MM CORTEX SELF-TAP SYNTHES LT N/A 1 Implanted SCREW 3.5 X 32MM CORTEX SELF-TAP - [id number] SCREW 3.5 X 32MM CORTEX SELF-TAP SYNTHES LT N/A 1 Implanted SCREW 3.5 X 44MM CORTEX SELF-TAP - [id number] SCREW 3.5 X 44MM CORTEX SELF-TAP SYNTHES LT N/A 1 Implanted SCREW 3.5X34MM CORTEX SELF-TAP - [id number] SCREW 3.5X34MM CORTEX SELF-TAP SYNTHES LT N/A 1 Implanted SCREW 7.3 X 75MM THAI 32MM THRD - [id number] SCREW 7.3 X 75MM THAI 32MM THRD SYNTHES LT N/A 1 Implanted WASHER 13MM - [id number] WASHER 13MM SYNTHES LT N/A 2 Implanted SCREW 7.3 X 115MM THAI 32MM THRD - [id number] SCREW 7.3 X 115MM THAI 32MM THRD [...] note may be different from the original. [facility] SURGERY TRAUMA PROGRESS [...] went to OSH and was transferred to [place] for management of pelvic fractures. Imaging reviewed, [...] or gallops noted. No peripheral edema noted. monitoring analyst displays v-paced rhythm. 2+ pulses radial/DP/PT bilaterally. [...] at 09/11/17 1456 Last data filed at 11/24/17 1300 Gross per 24 hour Intake 1423.53 [...] feeling light head and light head. Huang CROP AND SOIL SCIENTIST at bedside. No new orders but continue to monitor. Gave Dilaudid around 9:33am. Symptoms present an Hr after administration. Pt stable and resting comfortably Associated Problem(s): PAF (paroxysmal atrial fibrillation) (HCC) By history he has a dual chamber pacemaker. Last remote device check on 08/15/17 through [facility] showed multiple short bursts of PAF [...] had recurrent dilatation, 4.8cm by CT at [facility] in Jul 2016. --Agree with lovenox [...] going to follow up with cardiology at [facility] where he has previously established. Associated Problem(s): Coronary artery disease involving [place] coronary artery of [place] heart without angina pectoris History of GRACIE to OM1 in 2013. He follows with cardiology at [facility] and was last seen in May [...] Gabriel Khoury Admit Date: [id number] MR #: [id number] : 1960 Physicians: Rich Fernando DO (Family); [...] cyanosis Laboratory and Additional Data Reviewed: Laboratory 09/10/17 7:58 PM Assessment and Plan: Patient is [...] vista collar by trauma team Trauma Referral [place] Level 2 called at 1936 by with ETA 5 min. Transported by [facility].in this encounter Jake Goodwin DO - 09/10/2017 7:44 PM EST H&P Notes (unrecognized sect ion and content) Formatting of this note may be different from the original. [facility] SURGERY TRAUMA EVALUATION [...] on way down. Pt originally seen at [place], transfered here. Arrives with pelvic binder in [...] surgery Social history: -Place of residence (home, NSF, etc): Home -Tobacco use: No -EtOH use: [...] Pupils 4 mm equal and reactive bilaterally. Hector Coma Scale EYES (4-spont, 3-to verb stim, [...] of this case with the Resident/Nurse Practitioner/Physician Meat And Seafood Clerk and independently confirmed the findings and plan [...] 2:48 PM Olimpia Mejia - 09/15/2017 10:07 AM Janay Forrester MD - 09/11/2017 9:40 AM EST Consult [...] Medicine and Rehabilitation Consult Note Gabriel Khoury [id number] Reason for Consult: therapy needs History: History [...] he does not drink alcohol. Lives at [address] [place] [address] [place] [address]. Home Environment: single story house, 0STE. Tub/shot [...] changes, confusion, dizziness, headaches Medications Allergies: Gabriel Jones Mendoza No Known Allergies Physical Exam: Vital [...] while patient is admitted at [facility]. Thank you for the consult. Please feel free to contact our consult service with medical updates or follow-up questions. Maureen Schilling MD Physical Medicine and Rehabilitation PGY-2 #[phone] Formatting of this note may be different [...] Accessible Prior Level of Function Level of Wendel: Independent with ADLs and functional transfers, Independent [...] Two person assist (NWB RLE, WB LLE) Rectangular Tank Cooper: Wheeled walker Gait/Locomotion Gait Assistance: (Deferred, pivot only restriction) Home Living Type of Home: House Home Layout: One level Bathroom Shower/Tub: Tub/shower unit Bathroom Toilet: Standard Bathroom Equipment: Grab bars in shower, Shower chair Bathroom Accessibility: Accessible Prior Level of Function Level of Wendel: Independent with ADLs and functional transfers, Independent [...] Cardiovascular and Mediastinum Coronary artery disease involving [place] coronary artery of [place] heart without angina pectoris Assessment & Plan History of GRACIE to OM1 in 2013. He reports exertional chest discomfort prior to intervention. He follows with cardiology at [facility] and was last seen in May 2017. At that time he had no complaints of angina. Per notes, he has been unable to tolerate statins previously. --Resume ASA if ok with surgical team --No statin due to previous intolerance. Consider alternate therapy as an outpatient. H/O mechanical aortic valve replacement Assessment & Plan In 2000 with righTuneomedZilyo mechanical valve #29. 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 --warfarin on hold. [...] Last remote device check on 08/15/17 through [facility] showed multiple short bursts of PAF [...] cardiac history for which he follows at [facility]. He has known CAD with PCI in 2013, PAF, SSS with dual chamber pacemaker. He also is s/p mechanical AVR and aortic graft in 2000 with known dilation of aorta at 4.8 cm in 2015. He is physically active and denies any [...] Gabriel Khoury Admit Date: [id number] MR #: [id number] : 1960 Physicians: Cal Bah MD (Family); No ref. provider found (Referring) I have seen and examined this patient with the CROP AND SOIL SCIENTIST. I agree with her assessment and plan and recommendations. Echo with stable LV function and valve function. Overall, mechanical aortic valves are less thrombogenic than mechanical aortic valves, therefore the risk of holding anticoagulation in terms of thrombus formation is relatively low. Would resume heparin drip post operatively when safe. Janay Paulino MD, [facility] Associated Order(s): [...] No Known Allergies Home Medications: Gabriel Khoury Karen Home Medication Instructions Prior to Surgery GODWIN:[id number] Printed on:09/10/172246 Medication Information Take last dose [...] and numbness of extremity VITAL SIGNS Vitals: 09/10/17195009/10/17195309/10/17195809/10/172109 BP: (!) 147/99 (!) 140/99 129/88 129/83 [...] Figueroa Tobias, PGY4 09/10/17 Associated attestation - Figueroa, Melquiades Schmidt MD - 09/11/2017 8:57 AM EST Patient Name: Gabriel Khoury Admit Date: [id number] MR #: [id number] : 1960 Physicians: Cal Bah MD (Family); [...] is a 57-year-old man who presents to [place] after falling 15 feet. He was working on a ladder at his house when he fell. He was transferred to an outside hospital, and after a considerable period of time was then transferred to [place]. Patient complained of pain along his pelvis [...] DATE CREATED AUTHOR AUTHOR'S ORGANIZ ATION 04/09/2018 [facility] DATE CREATED AUTHOR AUTHOR'S ORGANIZ ATION 09/25/2018 [facility] DATE CREATED AUTHOR AUTHOR'S ORGANIZ ATION 03/14/2021 [facility] DATE CREATED AUTHOR AUTHOR'S ORGANIZ ATION 07/09/2023 [facility] DATE CREATED AUTHOR AUTHOR'S ORGANIZ ATION 12/18/2023 [facility] Reason for Visit (unrecogniz ed section [...] X-RAY PELVIS 1/2 VW POST-OP [facility] (84) [address] [place] [phone] [facility] [address] [id number] FOR RECORDS PERTAINING TO PATIENTS WHO ARE [...] BE BASED ON THE PRIMARY CLINICAL RECORDS. [employer] provides no warranty or guarantee of the accuracy or completeness of information in this document.
== END | disposition home or self-care (01) ==
LOC: RAD 11:10
PROVIDERS: PCP Family Medicine; Referring Provider Internal Medicine Cardiovascular Disease; Visit Provider Internal Medicine Cardiovascular Disease
DX: R07.9 Chest pain, unspecified (principal); E11.51 Type 2 diabetes mellitus with diabetic peripheral angiopathy without gangrene; I48.0 Paroxysmal atrial fibrillation; Z95.5 Presence of coronary angioplasty implant and graft; I25.5 Ischemic cardiomyopathy
CPT/HCPCS: 36415; 71046; 80053; 83036; 85025

== ENCOUNTER 2024-01-14 06:50 | Day surgery (SDC) | payer OTHER, SELFPAY ==
[2024-01-05 07:41] VITALS: BMI 34.7
[2024-01-06 07:12] LABS: INR Fingerstick 4.4; Prothrombin Time Fingerstick 42.3 SEC (11.7-14.9)
[2024-01-06 07:13] LABS: INR Fingerstick 4.3; Prothrombin Time Fingerstick 41.8 SEC (11.7-14.9)
[2024-01-14 06:57] LABS: INR Fingerstick 2.1
--- NOTE | 2024-01-14 08:53 | CL.D_ITS ---
Patient Name: CARMEN KHOURY Study Date: 01/14/2024 Performing: Carlos Pacheco MD Ht: 71 inches 180.34 cm : 1960 Wt: 248.99 lbs 112.94 kg Age: 63 Gender: male BSA: 2.31 PROCEDURE(S) PERFORMED DC02-([id number])[facility] CLINICAL PROFILE AND INDICATIONS Indications: Suspected CAD Heart Failure: None Stress/Imaging Stress/Image Study Performed: No CAD Presentations: Symptom unlikely to be ischemic. CONCLUSIONS Severe two-vessel disease involving a mid left anterior descending artery and a calcified vessel and the first obtuse marginal vessel. RECOMMENDATIONS Will discuss with interventional team about the best approach. DESCRIPTION OF PROCEDURE The patient arrived to the procedure lab. The risks and benefits of the procedure as well as a full description of our services here and current unavailability of surgical backup were fully explained to the patient and/or their significant other prior to the catheterization. The Timeout was completed, verifying the correct patient and procedure. The patient's procedural site was prepped and draped in the usual fashion. Local anesthetic was given subcutaneously to right radial region with Lidocaine 2%. Using a modified Seldinger technique, arterial access was obtained via the right radial artery, a 6Fr sheath was inserted. Left Coronary Artery selective angiography was performed in multiple views using a 5 Fr. 4.0 Norwood catheter.The arterial sheath was pulled and a TR Band was applied for hemostasis CORONARY ANGIOGRAPHY DOMINANCE: Left Dominant LEFT HEART ASSESSMENT Left Ventricular Ejection Fraction: by Echo 35 % Global Hypokinesis - Moderate Depressed Left Ventricular systolic function Pacemaker noted in good position. LEFT MAIN: Angiographically normal LEFT ANTERIOR DESCENDING ARTERY: The mid left anterior descending artery is noted to be calcified at the takeoff of a diagonal branch with approximately 70% eccentric lesion present. CIRCUMFLEX ARTERY: Large dominant circumflex artery is noted. The first obtuse marginal branch is previously stented with a high-grade stenosis noted just proximal to that. The AV groove branch and the posterior descending artery and posterolateral branches have mild disease only. RIGHT CORONARY ARTERY: Not identified. VALVE FINDINGS: Metallic prosthetic aortic valve with good leaflet motion. AORTIC ROOT: Dilated COMPLICATIONS No Complications PROCEDURE MEDICATIONS Versed 1 mg IV Fentanyl 50 mcg IV Versed 1 mg IV Fentanyl 50 mcg IV Fentanyl 25 mcg IV Baby Aspirin (81mg) 1 Tabs PO @ 01/14/2024 07:29:51 SUMMARY OF HEMODYNAMIC DATA Time AIR REST ECG 07:28:38 Art 140/71 (93) 08:09:09 AO 130/78 (95) SA 08:11:10 AIR REST 08:49:26 Signed By Carlos Pacheco MD On 01/14/2024 08:53:24 Carlos Pacheco MD
== END 2024-01-14 11:30 | disposition home or self-care (01) ==
PROVIDERS: PCP Family Medicine; Referring Provider Internal Medicine Cardiovascular Disease; Visit Provider Internal Medicine Cardiovascular Disease
DX: R06.02 Shortness of breath (principal); I48.0 Paroxysmal atrial fibrillation; E11.9 Type 2 diabetes mellitus without complications; Z95.0 Presence of cardiac pacemaker; Z95.2 Presence of prosthetic heart valve; I25.2 Old myocardial infarction; Z95.5 Presence of coronary angioplasty implant and graft; I25.10 Atherosclerotic heart disease of native coronary artery without angina pectoris; I10 Essential (primary) hypertension; E78.5 Hyperlipidemia, unspecified; G47.33 Obstructive sleep apnea (adult) (pediatric); I25.5 Ischemic cardiomyopathy; R07.9 Chest pain, unspecified; Z79.82 Long term (current) use of aspirin; Z87.891 Personal history of nicotine dependence
CPT/HCPCS: 36416; 85610; 93454; 99152; 99153; J7040; Q9967; C1769; C1894

== ENCOUNTER 2024-02-16 08:21 | Day surgery (SDC) | payer OTHER, SELFPAY ==
--- NOTE | 2024-02-12 09:23 | PCM.HP.BLA ---
History and Physical Date of Admission: 02/16/24 63-year-old man with an extensive cardiac history consisting of a bicuspid aortic valve for which he underwent aortic valve replacement in 2000 with a [employer]bo[employer] prosthetic valve size #29, and aortic root replacement. He also had a permanent pacemaker implanted with a generator change in 2010. He presented in 2013 with a non-ST elevation myocardial infarction for which he underwent cardiac catheterization which demonstrated single-vessel disease involving a 90% first obtuse marginal branch stenosis for which he underwent angioplasty and stenting with a 2.5 x 20 mm drug-eluting everolimus stent. Echocardiogram December 2021 showed ejection fraction 40%, peak aortic valve gradient 13.9 mmHg, and mean aortic valve gradient 7 mmHg. He also underwent a stress test in October 2020 demonstrating evidence of distal anterior apical and inferoapical infarct with no evidence of ischemia. He says that more recently he started having some chest discomfort with exertion and goes away with rest. His last echocardiogram was in November 2022 demonstrating ejection fraction of 37% with pulm artery systolic pressures of 50 mmHg. In December, he noted discomfort is similar to what he had when he had his heart attack but is much less in intensity. On 01/14/24 he underwent a heart cath which demonstrated Severe two-vessel disease involving a mid left anterior descending artery and a calcified vessel and the first obtuse marginal vessel. His case was discussed with Dr. Rosales, is scheduled to undergo stenting with Dr. Rosales. Medical History PMH: Atherosclerosis of coronary artery of [place] heart without angina pectoris Bicuspid aortic valve Complete heart block Dilated aortic root Essential (primary) hypertension Hyperlipemia Ischemic cardiomyopathy Left bundle branch block Obesity Obstructive sleep apnea Paroxysmal atrial fibrillation Sick sinus syndrome Type 2 diabetes mellitus Surgical History History of aortic root repair (02/24/01) History of coronary artery stent placement (07/20/14) History of mechanical aortic valve replacement (02/24/01) History of open reduction and internal fixation (ORIF) procedure (09/14/17) History of permanent cardiac pacemaker placement (03/05/20) History of tonsillectomy Family History Father Cancer prostate cancer Mother Heart disease AVR Social History household members: none housing: house current occupational status: employed current occupation: recycling collections driver Smoking Status: Former smoker alcohol intake: never substance use type: does not use what type of physical activity do you participate in: none seatbelt use: always do you feel safe at home: Yes ROS Const Const: Negative for fatigue, weakness, headache(s), daytime sleepiness or difficulty sleeping ENT ENT: Negative for headache(s), dizziness or Nosebleed/epistaxis Cardio Chest Pain: Yes Frequency: other (with heavy exertion) Character: dull and other (achy) Onset: exercise Location: mid sternal and left chest Duration: brief Exacerbation: activity Relieving: rest Recurrence: activity Palpitations: No Edema: None Resp Respiratory: Positive for SOB with activity; Negative for SOB at rest, SOB orthopnea\SOB lying down or Cough GI GI: Negative nausea, vomiting or heartburn Neuro Neuro: Negative for dizziness, lightheadedness, near syncope, headache(s) or weakness Endo Endo: Negative for fatigue Cardiology Exam Const Appearance: cooperative, healthy appearing, comfortable and no acute distress Nutritional Appearance: well nourished and obese Orientation: alert, awake and oriented x3 Head Head: normal to inspection Ears: hearing grossly normal bilaterally Nose: external nose normal Face and Sinus: face symmetric Mouth: oral mucosae normal Eyes General: appearance normal, both eyes and all related structures Eyelids: eyelids normal EOM: EOM intact bilaterally Neck Neck: normal visual inspection and no JVD Carotids: normal carotid upstroke Chest Chest inspection: normal inspection of the chest, symmetric chest movement and normal respiratory effort; Negative cough Auscultation: Bilateral: Diminished Lung Sounds Cardio Rate: regular rate Rhythm: regular rhythm Heart sounds: S1 normal, S2 normal and crisp prosthetic S2; Negative rub, gallop or murmur GI GI: normal to inspection and obese Neuro General: patient alert, patient awake, patient oriented x3 and CN's II-XI intact bilaterally Skin Skin: no rashes or lesions noted Extremities Pulses: Normal: Right Posterior Tibial Pulse, Left Posterior Tibial Pulse, Right Radial Pulse and Left Radial Pulse Lower Extremity Edema: None: Bilateral Psych Psychological: normal affect Assessment & Plan Assessment/Plan (1) Atherosclerosis of coronary artery of [place] heart without angina pectoris: QUALIFIERS: Coronary Disease-Associated Artery/Lesion type: [place] artery Qualified Code(s): I25.10 - Atherosclerotic heart disease of [place] coronary artery without angina pectoris (2) History of coronary artery stent placement: (3) Bicuspid aortic valve: (4) Chest pain: (5) Abnormal findings on cardiac catheterization: PLAN: Plan Patient will undergo his PCI. Follow-up will be based upon findings.
[2024-02-15 08:13] VITALS: BMI 34.7
[2024-02-16 08:42] LABS: Absolute Lymphocyte Count 1.24 X10^3/uL (0.83-4.51); Absolute Neutrophil Count 4.5 X10^3/uL (2.0-7.7); Basophil# 0.04 X10^3/uL; Basophil% 0.6 % (0-1); Eosinophil# 0.08 X10^3/uL; Eosinophils% 1.2 % (0-5); Hematocrit 44.3 % (40-54); Hemoglobin 15.3 g/dL (13.0-16.5); Lymphocyte # 1.24 X10^3/ul (0.83-4.51); Lymphocyte % 19.3 % (19-41); Mean Corp Hgb Conc 34.5 g/dL (32-36); Mean Corpuscular Hgb 29.3 pg (27.0-32.0); Mean Corpuscular Volume 84.7 fL (80-94); Mean Platelet Vol. 8.9 fl (6.2-12.0); Monocyte# 0.58 X10^3/uL; NRBC Flagged by Analyzer 0 % (0-5); Neutrophil # 4.48 X10^3/uL (2.7-7.7); Neutrophil % 69.6 % (47-70); Platelet Count 226 K/mm3 (150-450); RBC Distribution Width CV 12.9 % (11.6-14.6); RBC Distribution Width SD 39.4 fl (35.1-43.9); Red Blood Count 5.23 M/mm3 (4.6-6.2); White Blood Count 6.4 K/mm3 (4.4-11.0)
[2024-02-16 08:54] LABS: Anion Gap 6 (5-15); BUN 25 mg/dL (7-18); BUN/Creat Ratio 20.7 RATIO (10-20); Calcium,Total 9.1 mg/dL (8.5-10.1); Chloride 106 mmol/L (98-107); Creatinine, Serum 1.21 mg/dL (0.70-1.30); EST Glomerular Filtration Rate 64 mL/min (>60); Est Glom Filt Rate - Afr Amer 78 mL/min (>60); Estimated Creatinine Clearance 78.82 ml/min; Glucose 199 mg/dL (74-106); International Normalized Ratio 1.3; Potassium 4.2 mmol/L (3.5-5.1); Prothrombin Time (Protime)PT. 15.8 SECONDS (11.7-14.9); Sodium Level 134 mmol/L (136-145)
[2024-02-16 08:56] LABS: Partial Thromboplast Time 31.1 Seconds (24.1-36.2)
--- NOTE | 2024-02-16 13:43 | CRPHASE1 ---
Patient Communication Patient Information Former Patient:: Phase I PHII Cardiac Rehab Discussed with Patient:: Yes Guide to Cardiac Rehab Given to Patient:: Yes Cardiac Rehab Facility Choice List Given to Patient:: Yes Communication to Cardiac Rehab Adjunct Professor Of Law:: Cyrus Rosales Sessions:: 36 sessions - 3 days/wk, 12 weeks Cardiac Rehabilitation Info Program Information Cardiac Rehabilitation Program Information: Cardiac Rehab The cardiac rehab team at [facility] consists of highly skilled exercise physiologists, nurses, respiratory therapists and physicians working together with you. Our purpose is to help you have a full recovery and achieve the goals you set for yourself. Over the years many of our patients have returned to activities they assumed they would never do again! We can help restore your confidence and motivation to make lifestyle changes that can have a significant impact on your health and quality of life! We can help answer questions and concerns you may have about exercise, lifestyle, medications, diet, stress and anxiety which are common following a hospitalization. WE monitor ECG and vital signs during exercise and discuss your progress with you and report to your physician(s). Cardiac Rehab is proven to help reduce readmissions, improve functional capacity and lower recurrence of problems with your heart. Our Cardiac Rehab program is Certified by the [place] [employer] Pulmonary [employer] (AACVPR) and Accredited by the [place] [employer] through our [facility]. You can contact us at . We invite you to call us with your questions or to get started in our program. If you have other questions or concerns be sure to ask your physician/provider during your follow-up visit. WE look forward to seeing you!
--- NOTE | 2024-02-16 13:44 | CRPH1.INSTRU ---
General Education Discussed with Patient CAD and cardiac anatomy and function:: Patient communicates acknowledgment Explanation of diagnoses and procedures:: Patient communicates acknowledgment Sign/Symptoms of [place]:: Patient communicates acknowledgment Antiplatelet therapy: Patient communicates acknowledgment Proper use of NTG-SL: Patient communicates acknowledgment Emergency procedures and activation of EMS: Patient communicates acknowledgment Compliance of all prescribed medications: Patient communicates acknowledgment Smoking Recommendations Recommendations Include:: Previous smoker; encourage continued cessation Dyslipidemia Risk Factors Patient Dyslipidemia Risk Factors Are:: Total Cholesterol, Triglycerides, HDL and LDL Recommendations Recommendations Include:: Lipid profile not available, Reviewed NCEP/ATP guidelines and Therapeutic Lifestyle Change dietary guidelines Response Code Dyslipidemia Response Code:: Patient communicates acknowledgment Overweight/Obesity Risk Factors Patient Overweight/Obesity Risk Factors Are:: BMI Normal [18-25 & < 65 years old] and Obesity - > or = 30 Recommendations Recommendations Include:: Weight loss of 5-10%, Reduced calorie diet and Exercise 5-7 times/week Response Code Overweight/Obesity:: Patient communicates acknowledgment Hypertension Recommendations Recommendations Include:: Maintain BP <130/85, BP <130/80 if diabetic, DASH dietary guidelines, Decrease/maintain normal body weight and Moderation of ETOH Response Code Hypertension:: Patient communicates acknowledgment Heart Disease Risk Factors Patient Heart Disease Risk Factors Are:: Family history of heart disease < 65 years old and Previous cardiac event Recommendations Recommendations Include:: Educated family members of their risk and Educated family members of importance of prevention of heart disease Response Code Heart Disease Response Code:: Patient communicates acknowledgment Diabetes Recommendations Recommendations Include:: Maintain fasting blood sugars 70-110 md/dL, Maintain HgbA1c of 6% or less, Monitor blood sugar as prescribed, Diabetic dietary guidelines and Decrease/maintain body weight Response Code Diabetes:: Patient communicates acknowledgment Metabolic Syndrome Risk Factors Patient Metabolic Syndrome Risk Factors Are [3 of 5]:: Fasting blood sugar > 100 mg/dL, Waist circumference > 35 [female] or 40 [male], High triglyceride >150, Hypertension and Low HDL <40 [male] or < 50 [female] Recommendations Recommendations Include:: Reinforce compliance to risk factor modifications, Patient is diabetic and Encouraged follow-up with Primary Care Physician Response Code Metabolic Syndrome Response Code:: Patient communicates acknowledgment Sedentary Risk Factors Patient Sedentary Risk Factors Are:: Lack of regular exercise Recommendations Recommendations Include:: Aerobic exercise 5-7 times/week for 20-30 minutes continuously, Benefits of regular exercise, Discussed home walking program and Monitored Outpatient Cardiac Rehab Response Code Sedentary Response Code:: Patient communicates acknowledgment Stress Recommendations Recommendations Include:: Identification of stressors, and assessment of coping skills and Stress management techniques Response Code Stress Response Code:: Patient communicates acknowledgment
--- NOTE | 2024-02-19 10:11 | CL.I_ITS ---
Patient Name: CARMEN KHOURY Study Date: 02/16/2024 Performing: Tali Rosales MD Ht: 71 inches 180.34 cm : 1960 Wt: 249.3 lbs 112.94 kg Age: 63 Gender: male BSA: 2.31 PROCEDURE(S) PERFORMED IC10-(04994)FFR, CORONARY OR GRAFT, INITIAL VESSEL IC12-([id number])GRACIE W/WO PTCA, SINGLE CORONARY ARTERY CLINICAL PROFILE AND CO-MORBIDITIES Indications: Shortness of breath. Staged PCI Heart Failure: None CAD Presentations: Unstable angina. CONCLUSIONS Successful drug-eluting stent to proximal OM1. iFR in the LAD is consistent with a lesion that can be treated medically at this time RECOMMENDATIONS DESCRIPTION OF PROCEDURE The patient arrived to the procedure lab. The risks and benefits of the procedure as well as a full description of our services here and current unavailability of surgical backup were fully explained to the patient and/or their significant other prior to the catheterization. The Timeout was completed, verifying the correct patient and procedure. The patient's procedural site was prepped and draped in the usual fashion. Local anesthetic was given subcutaneously to right radial region with Lidocaine 2%. Using a modified Seldinger technique, arterial access was obtained via the right radial artery, a 6Fr sheath was inserted.. XB 3.0 Guide catheter was inserted and engaged into the LCA. The FFR/iFR wire was inserted. Pressures and FFR/iFR were then recorded. iFR Ratio: 0.91 Pressures and FFR/iFR were then recorded. iFR Ratio: 0.92 The FFR/iFR wire was then removed. [employer] [place] Guide wire was inserted A new [employer] [place] Guide wire was advanced to the 1st OM. Emerge 2.25 x 12 Balloon catheter was inserted. Angiogram performed pre balloon dilatation. PTCA balloon inflated at 10 atms for 15 secs. Angiogram performed post balloon dilatation. [employer] [place] 2.5 x 26 Drug Eluting stent was inserted. Drug Eluting stent was advanced across the lesion in the first obtuse marginal, proximal. Angiogram performed pre stent deployment. NC Euphora 2.5 x 15 Balloon catheter was inserted. Balloon catheter was advanced across lesion in the first obtuse marginal, proximal. INTERVENTION INFORMATION LESION SITE: LAD (Mid) Lesion Devices: Myreks Coronary FFR Wire Cordis 6 Fr XB3.0 100cm Guide Catheter LESION SITE: 1st OM (Proximal) Lesion Complexity: High/C, chronic total occlusion: No, lesion at bifurcation: No, thrombus present: No, lesion length: 25 mm, culprit lesion: Yes, Previously treated lesion: No Pre Stenosis: 80 % Pre intervention GENESIS flow: 3 PROCEDURE: Drug Eluting Stent with pre and post dilatation Post Stenosis: 0 % Post intervention GENESIS flow: 3 Lesion Devices: Burt .014 190cm BMW [place] Straight Cordis 6 Fr XB3.0 100cm Guide Catheter Burt .014 190cm BMW [place] Straight Jose Sci EMERGE MR 2.25x12 BALLOON Medtronic 2.50 x 26 MALIKA FRONTIER GRACIE Medtronic NC EUPHORA RX 2.5x15 BALLOON COMPLICATIONS No Complications PROCEDURE MEDICATIONS Fentanyl 50 mcg IV Versed 1 mg IV Oxygen: 2 L/min via nasal cannula Heparin given IA 02/16/2024 10:16:09 Heparin 6000 unit(s) IV 02/16/2024 10:18:14 Nitro 200 mcg IC 02/16/2024 10:50:13 Plavix 300 mg PO 02/16/2024 09:42:05 Verapamil 2.5mg, Ntg 100mcgs, 3000 units of Heparin given IA 02/16/2024 10:16:09 SUMMARY OF HEMODYNAMIC DATA Time AIR REST ECG 09:01:13 AO 142/76 (99) SA 10:17:44 Signed By Tali Rosales MD On 02/19/2024 10:10:31 Tali Rosales MD
== END 2024-02-16 14:43 | disposition home or self-care (01) ==
PROVIDERS: Internal Medicine Cardiovascular Disease; PCP Family Medicine; Referring Provider Specialist; Visit Provider Specialist
DX: I25.10 Atherosclerotic heart disease of native coronary artery without angina pectoris (principal); I48.0 Paroxysmal atrial fibrillation; E11.9 Type 2 diabetes mellitus without complications; Z95.5 Presence of coronary angioplasty implant and graft; E78.5 Hyperlipidemia, unspecified; I10 Essential (primary) hypertension; I25.5 Ischemic cardiomyopathy; R06.02 Shortness of breath; Q23.1 Congenital insufficiency of aortic valve; Z87.891 Personal history of nicotine dependence; R07.9 Chest pain, unspecified; E66.9 Obesity, unspecified; Z95.0 Presence of cardiac pacemaker; Z95.2 Presence of prosthetic heart valve; G47.33 Obstructive sleep apnea (adult) (pediatric)
CPT/HCPCS: 36415; 80048; 85025; 85610; 85730; 92928; 93005; 93571; 99152; 99153; J7040; Q9967; C1725; C1769; C1874; C1887; C1894; C9600

== ENCOUNTER → 2024-09-02 | Outpatient (CLI) | payer MEDICARE, BC, SELFPAY ==
--- NOTE | 2024-09-02 14:03 | ECHOD_ITS ---
Reason For Study: MECHANICAL AORTIC VALVE EVALUATION Procedure This was a 2D Doppler, Color Flow transthoracic echocardiogram. Exam performed in department. Left Ventricle Normal left ventricle. The left ventricular ejection fraction is 40 %. Dexter : Hypokinetic. Right Ventricle Normal RV size. ICD or pacer leads identified within the right ventricle. Normal systolic function. Atria Normal left atrium. Normal right atrium. Mitral Valve Normal mitral valve. Tricuspid Valve Normal tricuspid valve. Mild (1+) tricuspid valve insufficiency. Pulmonary artery systolic pressure is 40 mmHg. Mild pulmonary hypertension. Aortic Valve Peak aortic valve gradient 25 mmHg. Mean aortic valve gradient 13 mmHg. Stable appearing mechanical aortic valve apparatus. Pulmonic Valve Normal pulmonic valve. Great Vessels Mildly dilated aortic root. The pulmonary artery is normal size. Normal inferior vena cava. Pericardium/Pleural No pericardial effusion. MMode/2D Measurements & Calculations LVIDd: 5.6 cm IVSd: 1.6 cm LVOT diam: 2.1 cm LVIDs: 3.9 cm LVPWd: 1.3 cm LVOT area: 3.5 cm2 RVDd: 3.8 cm FS: 30.4 % Ao root diam: 4.0 cm LAV(MOD-bp): 63.3 ml LVAd ap4: 40.9 cm2 LAV(MOD-bp) Indexed: 27.7 ml/m2 LVLd ap4: 9.1 cm LAV(MOD-sp2): 62.0 ml EDV(MOD-sp4): 147.9 ml LAV(MOD-sp4): 57.1 ml EDV(sp4-el): 156.0 ml LVAs ap4: 30.4 cm2 LVLs ap4: 8.6 cm ESV(MOD-sp4): 86.9 ml ESV(sp4-el): 90.9 ml EF(MOD-sp4): 41.2 % EF(sp4-el): 41.7 % SV(MOD-sp4): 61.0 ml SV(sp4-el): 65.1 ml LA A4 area: 19.4 cm2 SI(MOD-sp4): 26.7 ml/m2 LA dimension(2D): 3.9 cm RA A4 area: 17.9 cm2 TAPSE: 2.0 cm Time Measurements MV dec time: 0.23 sec Doppler Measurements & Calculations MV E max avtar: 84.2 cm/sec Lat Peak E' Avtar: 11.4 cm/sec Med Peak E' Avtar: 5.4 cm/sec MV A max avtar: 100.5 cm/sec E/E' lat: 7.4 E/E' med: 15.6 MV E/A: 0.84 MV V2 max: 115.9 cm/sec Ao V2 max: 250.0 cm/sec LV V1 max: 142.7 cm/sec MV max P.4 mmHg Ao max P.0 mmHg LV V1 max P.2 mmHg MV V2 mean: 73.4 cm/sec Ao V2 mean: 167.0 cm/sec LV V1 mean P.3 mmHg MV mean P.4 mmHg Ao mean P.5 mmHg LV V1 mean: 97.0 cm/sec MV V2 VTI: 36.0 cm Ao V2 VTI: 48.1 cm LV V1 VTI: 33.5 cm AV (velocity ratio): 0.70 MVA(VTI): 3.3 cm2 RADHA(I,D): 2.5 cm2 RADHA(V,D): 2.0 cm2 SV(LVOT): 118.8 ml PA V2 max: 132.6 cm/sec TR max avtar: 307.3 cm/sec TR max P.8 mmHg ECHO/Echo Complete Interpretation Summary The left ventricular ejection fraction is 40 %. Normal left ventricle. Dexter : Hypokinetic. Pulmonary artery systolic pressure is 40 mmHg. Mild pulmonary hypertension. Stable appearing mechanical aortic valve apparatus. Mean aortic valve gradient 13 mmHg. Compared to previous study, the left ventricular systolic function has improved .. Ordering Physician: Dajuan Sheppard/Carlos Pacheco Referring Physician: CAL CHAVEZ Performed By: Kayla Cabrera RDCS
== END | disposition home or self-care (01) ==
PROVIDERS: PCP Family Medicine; Referring Provider Nurse Practitioner Family; Visit Provider Nurse Practitioner Family
DX: Z95.2 Presence of prosthetic heart valve (principal); Z95.0 Presence of cardiac pacemaker; Z98.890 Other specified postprocedural states; Z95.5 Presence of coronary angioplasty implant and graft; I25.5 Ischemic cardiomyopathy
CPT/HCPCS: 93306

== ENCOUNTER → 2025-02-13 | Outpatient (CLI) | payer BC, MEDICARE, SELFPAY ==
[2025-02-13 10:43] LABS: Anion Gap 11 (5-15); BUN 18 mg/dL (4-19); BUN/Creat Ratio 18.1 RATIO (10-20); Calcium,Total 8.6 mg/dL (7.6-11.0); Carbon Dioxide 22.3 mmol/L (21.0-32.0); Chloride 105 mmol/L (98-108); EST Glomerular Filtration Rate 84 (>60); Glucose 184 mg/dL (70-99); Potassium 4.7 mmol/L (3.3-5.1); Pro- Brain NATRIURETIC PEPTIDE 2519 pg/mL (<=900); Sodium Level 138 mmol/L (133-145)
== END | disposition home or self-care (01) ==
PROVIDERS: PCP Family Medicine; Referring Provider Nurse Practitioner Family; Visit Provider Nurse Practitioner Family
DX: Z95.0 Presence of cardiac pacemaker (principal); I48.0 Paroxysmal atrial fibrillation; Z98.890 Other specified postprocedural states; Z95.2 Presence of prosthetic heart valve; I10 Essential (primary) hypertension; R06.09 Other forms of dyspnea
CPT/HCPCS: 36415; 80048; 83880

== ENCOUNTER → 2025-02-21 | Outpatient (CLI) | payer BC, MEDICARE, SELFPAY ==
--- NOTE | 2025-02-21 07:18 | US_ITS ---
PROCEDURE: ABDOMEN LIMITED 02/21/2025 REASON FOR EXAM: ABNORMAL LEVELS OF OTHER SERUM ENZYMES TECHNIQUE: Complete abdominal ultrasound estrella-scale images with color doppler. PATIENT PREPARATION: Per protocol COMPARISON: None available FINDINGS: Tail of the pancreas is obscured by bowel gas. Visualized portions appear within limits. No evidence of pancreatic ductal dilation. The liver measures 16.7 cm and appears within limits for echogenicity. No intrahepatic biliary ductal dilation. Hepatic color flow is present. Flow in the portal vein appears hepatopetal as expected. Gallbladder appears within limits without stones, wall thickening or pericholecystic free fluid. Wall measures 3 mm. Report of a negative sonographic Nicole's sign. CBD 5 mm. The right kidney measures 12.3 x 5.2 x 5.3 cm with a cortical thickness of 1.2 cm. No right hydronephrosis, stone or perinephric edema seen. No free fluid seen. US/Abdomen Limited IMPRESSION: Study appears within limits as above. Reading Location: [id number]
== END | disposition home or self-care (01) ==
LOC: US 07:15
PROVIDERS: PCP Family Medicine; Referring Provider Family Medicine; Visit Provider Family Medicine
DX: R74.8 Abnormal levels of other serum enzymes (principal)
CPT/HCPCS: 76705